=== PATIENT | female | born 1955 | race Caucasian/White ===

== ENCOUNTER → 2019-04-07 07:21 | Outpatient (CLI) | payer OTHER, SELFPAY ==
--- NOTE | 2019-04-07 | DI.US.S_ITS ---
PROCEDURE: US ABDOMEN COMPLETE INDICATIONS: FUNCTIONAL DYSPEPSIA TECHNIQUE: Real-time scanning was performed of the abdominal and retroperitoneal organs, with image documentation. COMPARISON: [facility], US, RENAL COMPLETE, 04/17/2017, 11:06. FINDINGS: Liver: Liver is diffusely increased in echogenicity. No focal hepatic abnormalities identified. Normal hepatic size. Gallbladder: No gallstones identified. Normal gallbladder wall. No pericholecystic fluid. Negative sonographic Garcia sign. Biliary ducts: Intrahepatic bile ducts are non-dilated. Extrahepatic bile duct caliber measures 5.1 mm. Normal is 6-7 mm or less in diameter, or 10 mm or less post-cholecystectomy. Pancreas: Visualized portions of the pancreas are sonographically normal. Spleen: Spleen is normal in size and homogeneous in echotexture. Kidneys: Kidneys are normal in size and echotexture. Right kidney measures 10.6 cm long; left kidney measures 1.3 cm long. No hydronephrosis or nephrolithiasis. No solid masses. Increase in size of simple left renal mid pole parapelvic cyst measuring up to 4.4 cm. Aorta: Visualized aorta is normal in caliber at less than 3 cm. Iliacs: Proximal common iliac arteries are normal in caliber at less than 2.5 cm. IVC: Intrahepatic inferior vena cava is patent. Miscellaneous: No free abdominal fluid. IMPRESSION: 1. Mildly increased hepatic echogenicity noted possibly related to hepatic steatosis but other sources of hepatocellular disease cannot be excluded. Recommend clinical correlation. 2. Increasing size of left renal peripelvic cyst. 3. No source for epigastric pain identified. Dictated by: Brett LUCERO Interpreted: Mu Chester MD on 04/07/2019 at 9:21 Approved by: Mu Chester M.D. on 04/07/2019 at 12:02
== END ==
PROVIDERS: Family Provider Family Medicine; PCP Family Medicine; Visit Provider Internal Medicine Gastroenterology
DX: K30 Functional dyspepsia (principal); N28.1 Cyst of kidney, acquired
CPT/HCPCS: 76700

== ENCOUNTER 2019-04-09 13:47 | Day surgery (SDC) | payer OTHER, SELFPAY ==
--- NOTE | 2019-04-09 | PATH_ITS ---
[facility] Accession Number: [id number] . 01 Material submitted: . PART A: gastrointestinal site - ESOPHAGEAL BIOPSY 38 PART B: gastrointestinal site - GASTRIC POLYP X2 PART C: esophagus - GASTRIC BIOPSIES . 01 Clinical history: . A: H.PYLORI . 02 Diagnosis: A. Esophagus at 38 cm, Biopsy: Squamocolumnar junctional mucosa with specialized intestinal metaplasia, consistent with Kaplan's esophagus. Negative for dysplasia or malignancy. . B. Gastric Polyps, Biopsies: Fundic gland polyp x2. No evidence of Helicobacter organisms on H/E stain. Negative for intestinal metaplasia, dysplasia or malignancy. . C. Stomach, Biopsies: Gastric antral and body mucosa with minimal chronic gastritis. Negative for Helicobacter organisms by immunohistochemistry. Negative for intestinal metaplasia, dysplasia or malignancy. [facility]/04/15/2019 . 02 Comment: Parts A and C) These specimens were received in containers identifying the gastric biopsies as esophageal, and vice versa. The microscopic and gross descriptions and accompanying diagnoses correspond to the anatomic origin of the specimen as determined microscopically. . 02 Electronically signed: . Vamsi Lott MD, PhD, Pathologist NPI- [id number] . 01 Gross description: . Part A: ESOPHAGEAL BIOPSY 38: Received in formalin are 3 fragment(s) of dolan, soft tissue measuring 0.4 x 0.3 x 0.2 cm to 0.1 x 0.1 x 0.1 cm submitted entirely in 1 cassette(s) Part B: GASTRIC POLYP X2: Received in formalin are 2 fragment(s) of dolan, soft tissue measuring 0.3 x 0.2 x 0.1 cm to 0.2 x 0.1 x 0.1 cm submitted entirely in 1 cassette(s) Part C: GASTRIC BIOPSIES: Received in formalin are 3 fragment(s) of dolan, soft tissue measuring 0.3 x 0.2 x 0.2 cm to 0.2 x 0.2 x 0.2 cm submitted entirely in 1 cassette(s) /CKI /CKI . 02 Microscopic: . Part C) An immunohistochemical stain is performed to evaluate for Helicobacter organisms and is negative. A control stain shows appropriate reactivity. . * This test was developed and its performance characteristics [facility]. It has not been cleared or approved by the U.S. Food and Drug Administration. The FDA has determined that such clearance or approval is not necessary. This test is used for clinical purposes. It should not be regarded as investigational or for research. . 02 Pathologist provided ICD-10: K29.70, K22.70, K31.7 . 02 CPT . 699397, 183397, 243366, I35171 Performed at: 01 [facility] [address] [facility], [place], [place] [id number] MD Song Rodrigez MD Phone: [phone] Performed at: 02 [facility] [address] [place], [place] [id number] MD Erica Blanco MD Phone: [phone]
[2019-04-09 14:22] VITALS: BP 152/80; PULSE 75; RESP 16; TEMP 36.4; O2SAT 97; BMI 29.2
[2019-04-09] MEDS: SODIUM CHLORIDE 0.9% 1,000 ML 70 ML IV (14:22)
--- NOTE | 2019-04-09 15:06 | PM.HP.1 ---
History of Present Illness Date Patient Seen: 04/09/19 Time Patient Seen: 15:00 Chief complaint: [id number] EGD W/POSS BX Narrative: Patient is a pleasant 64-year-old female who presented for EGD. She was last seen in the office on April [address] Hummel she denies any changes to her symptoms at that time. She continues to have epigastric abdominal pain, symptoms of acid reflux and dyspepsia. She denies any changes to her medications, medical history, surgical history, or family history since that time. Patient History Medical History Hypertension (Acute) Social History household members: spouse Family & Social History Social History: household members spouse Meds Home Medications Medication Instructions Recorded Confirmed Type calcium carbonate-vitamin D3 1 tab PO DAILY 04/09/19 04/09/19 History [Caltrate 600 + D] carvedilol 25 mg PO BID 04/09/19 04/09/19 History felodipine 10 mg PO DAILY 04/09/19 04/09/19 History fluticasone furoate 50 mcg INHALATION PRN PRN 04/09/19 04/09/19 History levothyroxine [Synthroid] 137 mcg PO DAILY 04/09/19 04/09/19 History losartan 100 mg PO DAILY 04/09/19 04/09/19 History meloxicam 7.5 mg PO BID 04/09/19 04/09/19 History qrekfbbs-fub-TT-lycopen-lutein 1 tab PO DAILY 04/09/19 04/09/19 History [Centrum Silver] omega 8-npv-isv-fish oil [Fish Oil] 1 cap PO BID 04/09/19 04/09/19 History omeprazole 20 mg PO BID 04/09/19 04/09/19 History ranitidine HCl 150 mg PO BID 04/09/19 04/09/19 History Allergies Allergy/AdvReac Type Severity Reaction Status Date / Time dexamethasone Allergy Severe Rash Verified 04/09/19 14:13 Sulfa (Sulfonamide AdvReac Severe Irritable Verified 04/09/19 14:13 Antibiotics) lisinopril AdvReac Cough Verified 04/09/19 14:14 Review of Systems Review of Systems All systems reviewed & are unremarkable except as noted in HPI and below Exam Vital Signs (past 8 hours): - 04/09/19 14:22 Temperature 97.6 F Pulse Rate 75 Respiratory Rate 16 Blood Pressure 152/80 H Pulse Oximetry 97 Oxygen Delivery Method Room Air Const General: cooperative, healthy appearing, comfortable, well developed and well groomed Nutritional Appearance: average body habitus Orientation: oriented x3 Resp Effort & Inspection: normal respiratory effort and able to speak in complete sentences Auscultation: clear to auscultation bilaterally Cardio Rate: regular rate Rhythm: regular rhythm Heart Sounds: S1 normal and S2 normal GI Palpation: soft and no hepatosplenomegaly Auscultation: normal bowel sounds Assessment & Plan Assessment & Plan narrative: 1. Gastroesophageal reflux 2. Epigastric pain 3. Dyspepsia Proceed with EGD Regarding the procedure(s), the risks and potential complications, benefits, and alternatives (including not doing the procedure) were discussed with the patient. The risks include but are not limited to bleeding, splenic injury, infection, perforation which may require surgical intervention, missed lesions, and adverse reactions to sedative medicines. After a question and answer period, the patient agreed to proceed with the procedure(s) and gives informed consent.
--- NOTE | 2019-04-09 15:09 | P.HP_ITS ---
History of Present Illness Date Patient Seen: 04/09/19 Time Patient Seen: 15:00 Chief complaint: [id number] EGD W/POSS BX Narrative: Patient is a pleasant 64-year-old female who presented for EGD. She was last seen in the office on April [address] Hummel she denies any changes to her symptoms at that time. She continues to have epigastric abdominal pain, symptoms of acid reflux and dyspepsia. She denies any changes to her medications, medical history, surgical history, or family history since that time. Patient History Medical History Hypertension (Acute) Social History household members: spouse Family & Social History Social History: household members spouse Meds Home Medications Medication Instructions Recorded Confirmed Type calcium carbonate-vitamin D3 1 tab PO DAILY 04/09/19 04/09/19 History [Caltrate 600 + D] carvedilol 25 mg PO BID 04/09/19 04/09/19 History felodipine 10 mg PO DAILY 04/09/19 04/09/19 History fluticasone furoate 50 mcg INHALATION PRN PRN 04/09/19 04/09/19 History levothyroxine [Synthroid] 137 mcg PO DAILY 04/09/19 04/09/19 History losartan 100 mg PO DAILY 04/09/19 04/09/19 History meloxicam 7.5 mg PO BID 04/09/19 04/09/19 History darggjxj-igl-BO-lycopen-lutein 1 tab PO DAILY 04/09/19 04/09/19 History [Centrum Silver] omega 5-vdi-qnn-fish oil [Fish Oil] 1 cap PO BID 04/09/19 04/09/19 History omeprazole 20 mg PO BID 04/09/19 04/09/19 History ranitidine HCl 150 mg PO BID 04/09/19 04/09/19 History Allergies Allergy/AdvReac Type Severity Reaction Status Date / Time dexamethasone Allergy Severe Rash Verified 04/09/19 14:13 Sulfa (Sulfonamide AdvReac Severe Irritable Verified 04/09/19 14:13 Antibiotics) lisinopril AdvReac Cough Verified 04/09/19 14:14 Review of Systems Review of Systems All systems reviewed & are unremarkable except as noted in HPI and below Exam Vital Signs (past 8 hours): - 04/09/19 14:22 Temperature 97.6 F Pulse Rate 75 Respiratory Rate 16 Blood Pressure 152/80 H Pulse Oximetry 97 Oxygen Delivery Method Room Air Const General: cooperative, healthy appearing, comfortable, well developed and well groomed Nutritional Appearance: average body habitus Orientation: oriented x3 Resp Effort & Inspection: normal respiratory effort and able to speak in complete sentences Auscultation: clear to auscultation bilaterally Cardio Rate: regular rate Rhythm: regular rhythm Heart Sounds: S1 normal and S2 normal GI Palpation: soft and no hepatosplenomegaly Auscultation: normal bowel sounds Assessment & Plan Assessment & Plan narrative: 1. Gastroesophageal reflux 2. Epigastric pain 3. Dyspepsia Proceed with EGD Regarding the procedure(s), the risks and potential complications, benefits, and alternatives (including not doing the procedure) were discussed with the patient. The risks include but are not limited to bleeding, splenic injury, infection, perforation which may require surgical intervention, missed lesions, and adverse reactions to sedative medicines. After a question and answer period, the patient agreed to proceed with the procedure(s) and gives informed consent.
[2019-04-09] MEDS: fentaNYL 250 MCG/5 ML INJ IV (15:25)
[2019-04-09] MEDS: MIDAZOLAM 5 MG/5 ML VIAL IV (15:26)
--- NOTE | 2019-04-09 15:32 | PM.OP.ENDO ---
Operative Date/Time/Diagnoses Date of procedure: 04/09/19 Time of procedure: 15:19 Procedure Notes Procedure in detail: Surgeon: Huma Moore DO Procedure: Esophagogastroduodenoscopy with biopsy Preoperative diagnosis: 1. Gastroesophageal reflux, 2. Dyspepsia, 3. Epigastric abdominal pain Postoperative diagnosis: 1. Reflux at 38 cm biopsied to rule out Kaplan's, 2. Small hiatal hernia, 3. Mild gastritis in the antrum -biopsy to rule out H pylori, 4. Gastric polyps -biopsied. 5. Normal-appearing duodenum Medications: Conscious sedation using 4 mg IV of Midazolam and 100 mcg IV of Fentanyl Preanesthesia Assessment An H and P was performed/updated and the Px?s ASA class is 2. The procedure was discussed in detail with the patient. The potential risks and complications including infection, bleeding, missed lesions, perforation, need for surgery in case of perforation, prolonged hospital stay, and were explained. A brief question and answer period was allotted and once all questions were answered, informed consent was obtained. The patient was brought back to the procedure room and placed on standard monitoring. The patient?s vital signs were monitored continuously throughout the entire procedure. Prior to starting, a timeout was performed to confirm the patient?s identity, allergies, medications, and procedure. Procedure in detail The patient was placed in left lateral decubitus position and a bite block was inserted. The tip of the upper endoscope was placed into the mouth and advanced without difficulty under direct visualization into the esophagus. Esophagus: Changes of esophageal reflux at 38 cm biopsied to rule out Kaplan's esophagus, otherwise unremarkable esophageal evaluation Stomach: Mild gastritis in the antrum characterized by patchy erythema -biopsy to rule out H pylori. Multiple gastric polyps - biopsied. Small hiatal hernia noted on retroflexion Duodenum: Normal-appearing duodenum -no gross lesions were identified in the duodenal bulb, 1st portion, 2nd portion of the duodenum The patient tolerated the procedure well and will be brought back to the recovery area to be discharged once criteria are met. The total physician intraservice time was 20min. Complications There were no complications and estimated blood loss was minimal. Recommendations: Resume previous diet Continue outPx medications Follow up pathology results Office follow up if persistent symptoms Continue omeprazole An emergency contact number was given to the patient for any complications related to the procedure
[2019-04-09 15:39] VITALS: BP 133/80; PULSE 87; RESP 12; TEMP 36.6; O2SAT 92
[2019-04-09 15:44] VITALS: BP 127/76; PULSE 82; RESP 12; O2SAT 96
[2019-04-09 15:49] VITALS: BP 126/73; PULSE 79; RESP 13; O2SAT 98
[2019-04-09 15:59] VITALS: BP 123/67; PULSE 80; RESP 12; TEMP 36.6; O2SAT 97
[2019-04-09 16:30] VITALS: BP 130/79; PULSE 73; RESP 16; TEMP 36.2; O2SAT 94
== END 2019-04-09 16:30 | disposition home or self-care (01) ==
PROVIDERS: Family Provider Family Medicine; PCP Family Medicine; Visit Provider Student in an Organized Health Care Education/Training Program
PROC: 0DJ08ZZ Inspection of Upper Intestinal Tract, Via Natural or Artificial Opening Endoscopic (ICD-10-PCS; CPT 43235; principal; 2019-04-09 15:00)
DX: K22.70 Barrett's esophagus without dysplasia (principal); K21.9 Gastro-esophageal reflux disease without esophagitis; R10.13 Epigastric pain; K44.9 Diaphragmatic hernia without obstruction or gangrene; K29.70 Gastritis, unspecified, without bleeding; I10 Essential (primary) hypertension; K31.7 Polyp of stomach and duodenum
CPT/HCPCS: 43239; J2250; J3010

== ENCOUNTER → 2019-05-30 14:20 | Outpatient (CLI) | payer OTHER, SELFPAY ==
--- NOTE | 2019-05-30 | DI.ECHO.S_ITS ---
[facility] +---------+ : : [id number] : : : : [id number] : : : : Phone: [phone] Echocardiogram Report + + :Name: CHANI LLOYD Study Date: 05/30/2019 Height: 62 in : :[facility] Exam Location: [facility] Weight: 162 lb : : Gender: Female BSA: 1.7 m2 : :: 1955 Age: 64 yrs BP: 146/80 mmHg: :Reason For Study: LBBB : : Performed By: Carlitos Holguin : :Referring: STEPHANE MARSHALL : + + Interpretation Summary 1) Normal left ventricular size, thickness, wall motion, and systolic function (EF 55-60%). 2) Normal right ventricular size and function. 3) No significant valvular abnormalities. 4) No prior Echo avaliable for comparison. Procedure: A two-dimensional transthoracic echocardiogram with color flow and Doppler was performed. The study quality was technically adequate. There is no prior echocardiogram noted for this patient. The patient was in normal sinus rhythm during the exam. Left Ventricle: The left ventricle is normal in size. There is normal left ventricular wall thickness. The ejection fraction is estimated to be 55-60%. There are no focal wall motion abnormalities. Right Ventricle: The right ventricle is normal in size and function. Atria: Both atria are normal in size. The interatrial septum is intact with no evidence for an atrial septal defect. Mitral Valve: The mitral valve is normal in structure and function. There is trace mitral regurgitation. Aortic Valve: The aortic valve opens well. There is no aortic valve stenosis. There is trace aortic regurgitation. Tricuspid Valve: The tricuspid valve is normal in structure and function. There is a trace or physiologic amount of tricuspid regurgitation. Pulmonary artery pressures cannot be estimated because of the lack of a measurable TR jet velocity. Pulmonic Valve: The pulmonic valve is normal in structure and function. There is trace pulmonic regurgitation. Great Vessels: The aortic root is normal size. The dimensions of the ascending aorta are normal. The pulmonary artery is normal size. The IVC is of normal diameter and collapses greater than 50% with a sniff. This suggests a low right atrial pressure of 3 mm Hg. Pericardium/ Pleura There is no pericardial effusion. There is no pleural effusion. MMode/2D Measurements & Calculations LVIDd: 4.6 cm LVOT diam: 2.2 cm LVIDs: 3.0 cm Ao root diam: 3.0 cm FS: 34.3 % Aortic Jxn: 2.3 cm EPSS: 0.67 cm asc Aorta Diam: 3.3 cm IVSd: 0.96 cm Ao Arch Diam (Prox Trans): 2.2 cm LVPWd: 0.94 cm LV greene. diameter/BSA (cm/m^2): 2.6 LV sys. diameter/BSA (cm/m^2): 1.7 LA dimension: 4.0 cm RA long axis: 5.0 cm LA A2 area: 18.3 cm2 RA area: 13.7 cm2 LA A4 area: 21.3 cm2 RA vol: 31.8 ml LA length (vol): 5.6 cm RA : 18.2 ml/m2 LA vol: 59.3 ml IVC diam: 1.9 cm LA vol index: 33.9 ml/m2 Doppler Measurements & Calculations Ao V2 max: 120.7 cm/sec LVOT Max Saud: 85.2 cm/sec Ao V2 mean: 92.8 cm/sec LV V1 max P.9 mmHg Ao max P.8 mmHg LV V1 VTI: 19.8 cm Ao mean P.7 mmHg LOTTIE(I,D): 2.9 cm2 Ao V2 VTI: 26.8 cm LOTTIE(V,D): 2.8 cm2 sev ratio: 0.74 LOTTIE indexed to BSA (cm^2/m^2): 1.7 MV E max saud: 66.8 cm/sec PA V2 max: 59.6 cm/sec MV A max saud: 90.9 cm/sec PA V2 mean: 44.8 cm/sec MV E/A: 0.74 PA mean P.86 mmHg Med Peak E' Saud: 4.1 cm/sec PA pr(Accel): 39.1 mmHg E/E' med: 16.2 PA Accel Time: 0.10 sec Lat Peak E' Saud: 5.2 cm/sec E/E' lat: 13.0 E/e' average: 14.6 MV dec time: 0.18 sec SV(LVOT): 78.6 ml Reading Physician:04:27 PM
== END ==
PROVIDERS: Family Provider Family Medicine; PCP Family Medicine; Visit Provider Internal Medicine Cardiovascular Disease
DX: I44.7 Left bundle-branch block, unspecified (principal)
CPT/HCPCS: 93306

== ENCOUNTER → 2021-02-02 14:24 | Outpatient (CLI) | payer MEDICARE, OTHER, SELFPAY ==
--- NOTE | 2021-02-02 14:29 | DI.MG.S_ITS ---
BILATERAL DIGITAL SCREENING MAMMOGRAM 3D/2D WITH CAD: 02/02/2021 CLINICAL: Routine screening. Comparison is made to exams dated: 08/21/2016 mammogram, 10/15/2017 mammogram, and 11/28/2018 mammogram - [facility]. The tissue of both breasts is heterogeneously dense. This may lower the sensitivity of mammography. Current study was also evaluated with a Computer Aided Detection (CAD) system. No significant masses, calcifications, or other findings are seen in either breast. There has been no significant interval change. IMPRESSION: NEGATIVE There is no mammographic evidence of malignancy. A 1 year screening mammogram is recommended. This exam was interpreted at Station ID: [id number]. NOTE: For mammograms, a report in lay terms will be sent to the patient. Approximately 15% of breast malignancies will not be visualized mammographically. In the management of a palpable breast mass, a negative mammogram must not discourage biopsy of a clinically suspicious lesion. Electronically Signed By: De bronson/kulwinder:02/02/2021 16:55:14 letter sent: Normal Exam ACR BI-RADS Category 1: Negative [id number]
== END ==
PROVIDERS: Family Provider Family Medicine; PCP Internal Medicine; Referring Provider Family Medicine; Visit Provider Family Medicine
DX: Z12.31 Encounter for screening mammogram for malignant neoplasm of breast (principal); Z78.0 Asymptomatic menopausal state; M85.852 Other specified disorders of bone density and structure, left thigh
CPT/HCPCS: 77063; 77067; 77080

== ENCOUNTER 2021-05-12 19:10 | Emergency (ER) | payer MEDICARE, OTHER, SELFPAY ==
[2021-05-12 19:19] VITALS: BP 166/83; PULSE 81; RESP 16; TEMP 36.7; O2SAT 96; BMI 29.0
--- NOTE | 2021-05-12 19:35 | ED.EXTPRO ---
HPI - Extremity Problem General Chief complaint: Extremity Problem,Nontraumatic Stated complaint: Needs US on Right Leg, Seen At [facility] Time Seen by Provider: 05/12/21 19:23 Source: patient and family Mode of arrival: Ambulatory Limitations: no limitations History of Present Illness HPI Narrative: Patient is a 66-year-old female who is here for evaluation of discomfort in the back of her right leg. She states she has had the discomfort there for the past several days if not a little bit longer. Does get worse when she touches the area. Does get worse when she bends her foot up. She is concerned about a blood clot. She is not having chest pain. No shortness of breath. Has never had blood clots in the past. No skin changes. No trauma. No recent travel Related Data Home Medications Medication Instructions Recorded Confirmed calcium carbonate 600 mg(1,500 1 tab PO DAILY 04/09/19 04/09/19 mg)-vitamin D3 800 unit chewable tablet (Caltrate 600 plus D) carvedilol 25 mg tablet 25 mg PO BID 04/09/19 04/09/19 felodipine 10 mg tablet,extended 10 mg PO DAILY 04/09/19 04/09/19 release 24 hr fluticasone furoate 50 50 mcg INHALATION PRN PRN 04/09/19 04/09/19 mcg/actuation blister powder for inhalation levothyroxine 137 mcg tablet 137 mcg PO DAILY 04/09/19 04/09/19 (Synthroid) losartan 100 mg tablet 100 mg PO DAILY 04/09/19 04/09/19 meloxicam 7.5 mg tablet 7.5 mg PO BID 04/09/19 04/09/19 vrejhwcv-cpw-humqi acid 0.4 1 tab PO DAILY 04/09/19 04/09/19 mg-lycopene 300 mcg-lutein 250 mcg tablet (Centrum Silver) omega 6-bqe-ykz-fish oil 1,000 mg 1 cap PO BID 04/09/19 04/09/19 (120 mg-180 mg) capsule (Fish Oil) omeprazole 20 mg capsule,delayed 20 mg PO BID 04/09/19 04/09/19 release ranitidine HCl 150 mg capsule 150 mg PO BID 04/09/19 04/09/19 Allergies Allergy/AdvReac Type Severity Reaction Status Date / Time dexamethasone Allergy Severe Rash Verified 05/12/21 19:19 Sulfa (Sulfonamide AdvReac Severe Irritable Verified 05/12/21 19:19 Antibiotics) lisinopril AdvReac Cough Verified 05/12/21 19:19 Review of Systems Constitutional Constitutional: Reports system reviewed and no additional complaints, except as documented Cardiovascular Cardiovascular: Reports as per HPI Respiratory Respiratory: Reports as per HPI Gastrointestinal Gastrointestinal: Reports system reviewed and no additional complaints, except as documented Musculoskeletal Musculoskeletal: Reports as per HPI Integumentary/Breasts Skin/Breast: Reports system reviewed and no additional complaints, except as documented Neurologic Neurologic: Reports system reviewed and no additional complaints, except as documented Hematologic/Lymphatic On Anticoagulants: No Patient History Medical History Hypertension Social History household members: spouse Smoking Status: Never smoker Smoking Status: Never smoker alcohol intake frequency: holidays/special occasions only Substance Use Type: does not use Exam Initial Vital Signs Initial Vital Signs: Vital Signs Temperature 98.1 F 05/12/21 19:19 Pulse Rate 81 05/12/21 19:19 Respiratory Rate 16 05/12/21 19:19 Blood Pressure 166/83 H 05/12/21 19:19 Pulse Oximetry 96 05/12/21 19:19 Const General: cooperative and healthy appearing HENVA Head: normal to inspection and normocephalic Eyes General: appearance normal, both eyes and all related structures Neck Neck: normal visual inspection Resp Effort & Inspection: normal respiratory effort Cardio Rate: regular rate Pulses: dorsalis pedis present on the right GI Inspection: normal to inspection Skin General: no rashes or lesions noted Neuro General: patient alert, patient awake and moves all extremities Extrem General: normal to inspection, capillary refill normal, no joint enlargement and no pedal edema Other: She does have tenderness to palpation along the lateral aspect of the right calf muscle. This is reproducible with dorsiflexion of the right foot. No discomfort with plantar flexion. She does have some discomfort a palpation of the hamstring tendons specifically the lateral hamstring. Psych Appearance: grossly normal and well kempt Scores Wells' Criteria for DVT Active Cancer (Treatment within 6 months): No Bedridden recently >3 days or major surgery within 4 weeks: No Calf Swelling >3cm compared to other leg: No Collateral (nonvericose) superficial veins present: No Entire leg swollen: No Localized tenderness along the deep vein system: No Pitting edema, confined to symtomatic leg: No Paralysis, paresis, or recent plaster immobilization of ext: No Previously documented DVT: No Alternative dx to DVT as likely or more likely: Yes Wells' criteria for DVT: -2 Course Vital Signs Vital signs: Vital Signs - 8 hr 05/12/21 19:19 Temperature 98.1 F Pulse Rate 81 Respiratory Rate 16 Blood Pressure 166/83 H Pulse Oximetry 96 MDM - Extremity (Nontraumatic) MDM Narrative Medical decision making narrative: Patient is low risk per Wells criteria for DVT. She has no skin changes over the area make me concerned for cellulitis. Have low suspicion for fracture. Low suspicion for compartment syndrome. She is specifically tender over the lateral aspect of the right calf muscle and this is reproducible dorsiflexion of the foot. I suspect that the etiology of this is muscular in origin. I feel that we can hold on radiologic studies. I did discuss this with the patient we did discuss thinks she can try home to help the symptoms. She was given strict return precautions and follow-up instructions. She expressed understanding and agreement. Discharge Plan Departure Patient Disposition: Home Clinical Impression: Strain of right calf muscle Instructions: Calf Muscle Strain Activity Restrictions/Additional Instructions: I recommend that you try to keep your leg is elevated as possible. You can also use ice over the area. Also recommend that you start on a anti-inflammatory like we discussed. Return to the emergency department for any new or worsening symptoms Prescriptions: No Action levothyroxine [Synthroid] 137 mcg Tablet 137 mcg PO DAILY RF: 0 carvedilol 25 mg Tablet 25 mg PO BID RF: 0 meloxicam 7.5 mg Tablet 7.5 mg PO BID RF: 0 omeprazole 20 mg Capsule,Delayed Release(Dr/Ec) 20 mg PO BID RF: 0 felodipine 10 mg Tablet Extended Release 24 Hr 10 mg PO DAILY RF: 0 ranitidine HCl 150 mg Capsule 150 mg PO BID RF: 0 losartan 100 mg Tablet 100 mg PO DAILY RF: 0 Centrum Silver 0.4-300-250 mg-mcg-mcg Tablet 1 tab PO DAILY RF: 0 omega 0-xym-ptk-fish oil [Fish Oil] 1,000 mg (120 mg-180 mg) Capsule 1 cap PO BID RF: 0 Caltrate 600 plus D 600 mg (1,500 mg)-800 unit Tablet,Chewable 1 tab PO DAILY RF: 0 fluticasone furoate 50 mcg/actuation Blister With Device 50 mcg inhalation PRN PRN (Reason: Allergic Symptoms) RF: 0 Referrals: Jose Manuel Winters MD [Primary Care Provider] -
== END 2021-05-12 19:56 | disposition home or self-care (01) ==
PROVIDERS: Emergency Provider Emergency Medicine; Family Provider Family Medicine; PCP Internal Medicine
DX: S86.911A Strain of unspecified muscle(s) and tendon(s) at lower leg level, right leg, initial encounter (principal)
CPT/HCPCS: 99281

== ENCOUNTER 2021-09-15 19:38 | Emergency (ER) | payer MEDICARE, OTHER, SELFPAY ==
--- NOTE | 2021-09-15 19:46 | DI.RAD.S_ITS ---
PROCEDURE: XR CHEST 1V INDICATIONS: chest pain TECHNIQUE: One view of the chest was acquired. COMPARISON: None. FINDINGS: Surgical changes and devices: None. Lungs and pleura: Lungs are clear. No pleural effusions or pneumothorax. Mediastinum: Mediastinal contours appear normal. Heart size is normal. Bones and chest wall: No suspicious bony lesions. Overlying soft tissues appear unremarkable. IMPRESSION: No acute cardiopulmonary disease. Dictated by: Kristi Gentile M.D. on 09/15/2021 at 21:43 Approved by: Kristi Gentile M.D. on 09/15/2021 at 21:43
[2021-09-15 19:47] VITALS: BP 178/115; PULSE 126; RESP 16; TEMP 36.6; O2SAT 98; BMI 29.2
[2021-09-15 19:59] VITALS: PULSE 123; RESP 12; O2SAT 97
[2021-09-15 20:05] LABS: Add Manual Diff / Slide Review NO; Basophils Absolute Auto 100 /uL (0-100); Basophils Percent Auto 0.9 % (0-2); Eosinophils Absolute Auto 300 /uL (0-450); Eosinophils Percent Auto 3.5 % (2-4); Hematocrit 36.9 % (36-46); Hemoglobin 12.6 g/dL (12.0-16.0); Lymphocytes Absolute Auto 1200 /uL (1100-4500); Lymphocytes Percent Auto 14.8 % (25-40); Mean Corpuscular HGB Conc 34.2 % (30-36); Mean Corpuscular Hemoglobin 29.7 PG (26-34); Mean Corpuscular Volume 86.9 fL (80-100); Monocytes Absolute Auto 600 /uL (0-900); Monocytes Percent Auto 7.9 % (3-14); Neutrophils Absolute Auto 6000 /uL (1500-7000); Neutrophils Percent Auto 72.9 % (50-75); Platelet Count 319 X10^3/uL (150-400); Red Blood Cell Count 4.25 X10^6/uL (4.0-5.2); Red Cell Distribution Width 14.2 % (11.6-14.8); White Blood Cell Count 8.2 X10^3/uL (4.5-11.0)
[2021-09-15 20:17] VITALS: BP 176/98; PULSE 122; RESP 19; O2SAT 96
[2021-09-15 20:30] VITALS: BP 153/81; PULSE 73; RESP 12; O2SAT 93
[2021-09-15 20:43] LABS: Alanine Aminotransferase 24 IU/L (<35); Albumin 4.2 g/dL (3.5-5.0); Albumin Globulin Ratio 1.4 (1.0-2.8); Alkaline Phosphatase 83 U/L (38-126); Aspartate Aminotransferase 28 IU/L (14-36); BUN Creatinine Ratio 28.4 (6-22); Bilirubin Total 0.3 mg/dL (0.2-1.3); Blood Urea Nitrogen 33 mg/dL (7-17); Calcium 8.7 mg/dL (8.4-10.2); Carbon Dioxide 26 mmol/L (22-32); Chloride 109 mmol/L (98-107); Creatine Kinase 120 U/L (30-135); Estimated Glomerular Filt Rate 46.7 mL/min (>60); Glucose 110 mg/dL (80-110); Lipase 141 U/L (23-300); Potassium 4.4 mmol/L (3.4-5.1); Sodium 142 mmol/L (137-145); Total Protein 7.2 g/dL (6.3-8.2)
[2021-09-15 20:55] LABS: Troponin I < 0.012 ng/mL (0.01-0.034)
[2021-09-15 20:58] LABS: CKMB % Relative Index 1.6 % (1.5-5.0); Creatine Kinase MB 1.93 ng/mL (<2.37); HEMOLYSIS 16 (0-50)
[2021-09-15 21:00] VITALS: BP 150/75; PULSE 72; RESP 12; O2SAT 94
--- NOTE | 2021-09-15 21:17 | PC.NURSE ---
Pt appeared to convert from atrial flutter on to NSR, HR 75 on the monitor, Dr. Huff notified and EKG obtained. Pt reports flutters in her chest are gone and denies chest pain.
[2021-09-15 21:27] VITALS: BP 162/77; PULSE 71; RESP 20; O2SAT 96
--- NOTE | 2021-09-15 21:39 | ED_ITS ---
HPI - Chest Pain General Chief Complaint: Chest Pain Stated Complaint: heart flutters, HTN Time Seen by Provider: 09/15/21 20:42 Source: patient Mode of arrival: Ambulatory Limitations: no limitations History of Present Illness HPI narrative: Patient is a 66-year-old female. Has had history of palpitations and heart flutters in the past. Has been seen by Cardiology. Is on carvedilol and felodipine. Has had a Holter monitor in the past but she states that fall she word she did not have any symptoms. She has had multiple EKGs which have not captured any abnormalities. She states that recently she has been getting palpitations and feeling like her heart is fluttering almost on a daily basis. They last for various amounts of times but the to voice seem to be self-limited. Today she stated that she had the same symptoms again. This time they became more intense and lasted longer than normal. No chest pain. No shortness of breath. No lightheadedness. Has not tried anything for the symptoms prior to arrival. She has taken all of her medications as directed. She also took her blood pressure at home while the event was going on and it was elevated. Related Data Home Medications Medication Instructions Recorded Confirmed calcium carbonate 600 mg(1,500 1 tab PO DAILY 04/09/19 04/09/19 mg)-vitamin D3 800 unit chewable tablet (Caltrate 600 plus D) carvedilol 25 mg tablet 25 mg PO BID 04/09/19 04/09/19 felodipine 10 mg tablet,extended 10 mg PO DAILY 04/09/19 04/09/19 release 24 hr fluticasone furoate 50 50 mcg INHALATION PRN PRN 04/09/19 04/09/19 mcg/actuation blister powder for inhalation levothyroxine 137 mcg tablet 137 mcg PO DAILY 04/09/19 04/09/19 (Synthroid) losartan 100 mg tablet 100 mg PO DAILY 04/09/19 04/09/19 meloxicam 7.5 mg tablet 7.5 mg PO BID 04/09/19 04/09/19 gcbajuun-nvo-gihfs acid 0.4 1 tab PO DAILY 04/09/19 04/09/19 mg-lycopene 300 mcg-lutein 250 mcg tablet (Centrum Silver) omega 4-vtt-fxw-fish oil 1,000 mg 1 cap PO BID 04/09/19 04/09/19 (120 mg-180 mg) capsule (Fish Oil) omeprazole 20 mg capsule,delayed 20 mg PO BID 04/09/19 04/09/19 release ranitidine HCl 150 mg capsule 150 mg PO BID 04/09/19 04/09/19 Allergies Allergy/AdvReac Type Severity Reaction Status Date / Time dexamethasone Allergy Severe Rash Verified 09/15/21 19:49 Sulfa (Sulfonamide AdvReac Severe Irritable Verified 09/15/21 19:49 Antibiotics) lisinopril AdvReac Cough Verified 09/15/21 19:49 Review of Systems Constitutional Constitutional: Denies headache(s) ENT Ears, Nose, Mouth, and Throat: Denies headache(s) Cardiovascular Cardiovascular: Reports as per HPI and Reports system reviewed and no additional complaints, except as documented Respiratory Respiratory: Reports system reviewed and no additional complaints, except as documented Gastrointestinal Gastrointestinal: Reports system reviewed and no additional complaints, except a s documented Musculoskeletal Musculoskeletal: Reports system reviewed and no additional complaints, except as documented Integumentary/Breasts Skin/Breast: Reports system reviewed and no additional complaints, except as documented Neurologic Neurologic: Denies headache(s) Hematologic/Lymphatic On Anticoagulants: No Patient History Medical History Hypertension Social History household members: spouse Smoking Status: Never smoker Smoking Status: Never smoker alcohol intake frequency: holidays/special occasions only Substance Use Type: does not use Exam Initial Vital Signs Initial Vital Signs: Vital Signs Temperature 98 F 09/15/21 19:47 Pulse Rate 126 H 09/15/21 19:47 Respiratory Rate 16 09/15/21 19:47 Blood Pressure 178/115 H 09/15/21 19:47 Pulse Oximetry 98 09/15/21 19:47 HENMT Head: normal to inspection and normocephalic Eyes General: appearance normal, both eyes and all related structures Resp Effort & Inspection: normal respiratory effort Auscultation: clear to auscultation bilaterally Cardio Rate: regular rate Rhythm: regular rhythm GI Inspection: normal to inspection Skin General: no rashes or lesions noted Neuro General: patient alert, patient awake and moves all extremities Extrem General: No edema Psych Appearance: grossly normal Course Orders Ordered: ED Orders 09/15/21 19:46 XR chest 1V Stat EKG-12 Lead Stat 09/15/21 19:59 Complete Blood Count AUTO DIFF Stat Comprehensive Metabolic Panel Stat Lipase Stat Troponin & CK Cardiac Panel Stat 09/15/21 21:16 EKG-12 Lead Stat Vital Signs Vital signs: Vital Signs - 8 hr 09/15/21 19:47 09/15/21 19:59 09/15/21 20:17 Temperature 98 F Pulse Rate 126 H 123 H 122 H Respiratory Rate 16 12 19 Blood Pressure 178/115 H 176/98 H Pulse Oximetry 98 97 96 09/15/21 20:30 09/15/21 21:00 09/15/21 21:27 Temperature Pulse Rate 73 72 71 Respiratory Rate 12 12 20 Blood Pressure 153/81 H 150/75 H 162/77 H Pulse Oximetry 93 94 96 MDM - Chest Pain Lab Data Attestation: I reviewed the patient's lab results. Result diagrams: 09/15/21 19:59 09/15/21 19:59 Labs: Lab Results 09/15/21 09/15/21 Range/Units 19:59 19:59 WBC 8.2 (4.5-11.0) X10^3/uL RBC 4.25 (4.0-5.2) X10^6/uL Hgb 12.6 (12.0-16.0) g/dL Hct 36.9 (36-46) % MCV 86.9 (80-100) fL MCH 29.7 (26-34) PG MCHC 34.2 (30-36) % RDW 14.2 (11.6-14.8) % Plt Count 319 (150-400) X10^3/uL Neut % (Auto) 72.9 (50-75) % Lymph % (Auto) 14.8 L (25-40) % Collier % (Auto) 7.9 (3-14) % Eos % (Auto) 3.5 (2-4) % Baso % (Auto) 0.9 (0-2) % Neut # (Auto) 6000 (1194-1034) /uL Lymph # (Auto) 1200 (7578-4319) /uL Collier # (Auto) 600 (0-900) /uL Eos # (Auto) 300 (0-450) /uL Baso # (Auto) 100 (0-100) /uL Sodium 142 (137-145) mmol/L Potassium 4.4 (3.4-5.1) mmol/L Chloride 109 H (98-107) mmol/L Carbon Dioxide 26 (22-32) mmol/L BUN 33 H (7-17) mg/dL Creatinine 1.16 H (0.52-1.04) mg/dL Estimated GFR 46.7 L (>60) mL/min BUN/Creatinine Ratio 28.4 H (6-22) Glucose 110 (80-110) mg/dL Calcium 8.7 (8.4-10.2) mg/dL Total Bilirubin 0.3 (0.2-1.3) mg/dL AST 28 (14-36) IU/L ALT 24 (<35) IU/L Alkaline Phosphatase 83 (38-126) U/L Total Creatine Kinase 120 (30-135) U/L CK-MB (CK-2) 1.93 (<2.37) ng/mL CK-MB (CK-2) Rel Index 1.6 (1.5-5.0) % Troponin I < 0.012 (0.01-0.034) ng/mL Total Protein 7.2 (6.3-8.2) g/dL Albumin 4.2 (3.5-5.0) g/dL Globulin 3.0 (1.7-4.1) g/dL Albumin/Globulin Ratio 1.4 (1.0-2.8) Lipase 141 (23-300) U/L Imaging Data Chest x-ray: Radiologist's Impression: [address] [address] XRay Report Signed Patient: Kajal Sumner MR#: [id number] : 1955 Acct:[id number] Age/Sex: 66 / F Date of Service: 09/15/21 Loc: ED Accession Number: [id number] ?? Procedure: XR chest 1V Ordering Provider: Alexander Huff D.O. PROCEDURE:? XR CHEST 1V ? INDICATIONS:? chest pain ? TECHNIQUE:? One view of the chest was acquired.? ? COMPARISON:? None. ? FINDINGS:? ? Surgical changes and devices:? None.? ? Lungs and pleura:? Lungs are clear.? No pleural effusions or pneumothorax.? ? Mediastinum:? Mediastinal contours appear normal.? Heart size is normal.? ? Bones and chest wall:? No suspicious bony lesions.? Overlying soft tissues appear unremarkable.? ? IMPRESSION:? No acute cardiopulmonary disease.? ? ? Dictated by: Kristi Gentile M.D. on 09/15/2021 at 21:43 ? ? Approved by: Kristi Gentile M.D. on 09/15/2021 at 21:43 ECG Data Attestation: I personally reviewed and interpreted this ECG as follows: Interpretation: Atrial flutter Ventricular rate 126 QRS 126 milliseconds QTC [address] T wave changes Repeat EKG Sinus rhythm Ventricular rate of 68 [place] interval 154 milliseconds QRS 138 milliseconds QTC 469 milliseconds Normal axis LVH Nonspecific ST T wave changes MDM Narrative Medical decision making narrative: Prior to my evaluation of the patient she stated that all of her symptoms completely resolved. The initial EKG I initially thought was sinus tachycardia however upon further evaluation it does appear to be atrial flutter. A repeat EKG after she states that all of her symptoms improved is obviously sinus rhythm. I did give her copy of her EKGs. She has been hypertensive. Low suspicion for ACS. I suspect that she has been having issues with atrial flutter/fibrillation given her presentation which she describes that has been going on. The symptoms have become more frequent. I did tell her that it may be time for her to have another Holter monitor since her symptoms are more frequent. She can get this from either her primary doctor or her it help desk analyst. Will discharge home. Will hold on changing any of her medications for now. Will hold on any anticoagulation. She was given return precautions and follow- up instructions. She expressed understanding and agreement. Discharge Plan Departure Patient Disposition: Home Clinical Impression: Atrial flutter, Hypertension Instructions: Essential Hypertension, DI for Arrhythmias Activity Restrictions/Additional Instructions: Continue to take all of your medications as directed. I do recommend that you contact your it help desk analyst for a follow-up to discuss further workup to include p otentially having another Holter monitor. This workup may also include a echocardiogram. Be sure to take your blood pressure at home like we discussed. Take the EKGs that your given today 2 your it help desk analyst for his review. Return to the emergency department for any new or worsening symptoms. Prescriptions: No Action levothyroxine [Synthroid] 137 mcg Tablet 137 mcg PO DAILY 0RF carvedilol 25 mg Tablet 25 mg PO BID 0RF meloxicam 7.5 mg Tablet 7.5 mg PO BID 0RF omeprazole 20 mg Capsule,Delayed Release(Dr/Ec) 20 mg PO BID 0RF felodipine 10 mg Tablet Extended Release 24 Hr 10 mg PO DAILY 0RF ranitidine HCl 150 mg Capsule 150 mg PO BID 0RF losartan 100 mg Tablet 100 mg PO DAILY 0RF Centrum Silver 0.4-300-250 mg-mcg-mcg Tablet 1 tab PO DAILY 0RF omega 4-rwn-uls-fish oil [Fish Oil] 1,000 mg (120 mg-180 mg) Capsule 1 cap PO BID 0RF Caltrate 600 plus D 600 mg (1,500 mg)-800 unit Tablet,Chewable 1 tab PO DAILY 0RF fluticasone furoate 50 mcg/actuation Blister With Device 50 mcg inhalation PRN PRN (Reason: Allergic Symptoms) 0RF Referrals: Jose Manuel Winters MD [Primary Care Provider] -
== END 2021-09-15 21:54 | disposition home or self-care (01) ==
PROVIDERS: Emergency Provider Emergency Medicine; Family Provider Family Medicine; PCP Internal Medicine
DX: I48.92 Unspecified atrial flutter (principal); I10 Essential (primary) hypertension
CPT/HCPCS: 36415; 71045; 80053; 82550; 82553; 83690; 84484; 85025; 93005; 93010; 99284

== ENCOUNTER → 2021-10-31 15:40 | Outpatient (CLI) | payer MEDICARE, OTHER, SELFPAY ==
--- NOTE | 2021-10-31 | DI.ECHO.S_ITS ---
[place] [facility]---------+ [facility] +---------+ : : [address] : : : : [id number] : : : : Phone: [phone] Echocardiogram Report + + :Name: CHANI LLOYD Study Date: 10/31/2021 Height: 62 in : :[facility] ReadingLocation: Weight: 159 lb : : Gender: Female BSA: 1.7 m2 : :: 1955 Age: 66 yrs BP: 156/82 mmHg: :Reason For Study: LEFT BUNDLE BRANCH BLOCK, ATRIAL FLUTTER : :Ordering Physician: MONICA, : :STEPHANE Performed By: Gina Ruiz : :Referring: STEPHANE MARSHALL : + + Interpretation Summary 1) Normal left ventricular size, thickness, and systolic function (EF 55-60%). 2) Normal right ventricular size and function. 3) No significant valvular abnormalities. 4) Compared to the Echo done 05/30/2019, no significant change. Procedure: A two-dimensional transthoracic echocardiogram with color flow and Doppler was performed. The study quality was technically adequate. Comparison is made with the echocardiogram of 05/30/2019. The patient had a bundle branch block rhythm during the exam. The heart rate ranged between 57- 65 bpm during the study. Left Ventricle: The left ventricle is normal in size and wall thickness. The ejection fraction is estimated to be 55-60%. There is a mild dyssynchronous contraction pattern, consistent with a conduction abnormality. Right Ventricle: The right ventricle is normal in size and function. Atria: The left atrial size is normal. Right atrial size is normal. There is no Doppler evidence for an interatrial shunt. Mitral Valve: The mitral valve is normal in structure and function. There is mild mitral regurgitation. Aortic Valve: The aortic valve opens well. There is no aortic valve stenosis. There is trace aortic regurgitation. Tricuspid Valve: The tricuspid valve is normal in structure and function. There is trace tricuspid regurgitation. Pulmonary artery pressures cannot be estimated because of the lack of a measurable TR jet velocity. Pulmonic Valve: The pulmonic valve is not well visualized. Great Vessels: The aortic root is normal size. The dimensions of the ascending aorta are normal. The IVC is of normal diameter and collapses greater than 50% with a sniff. This suggests a low right atrial pressure of 3 mm Hg. Pericardium/ Pleura There is no pericardial effusion. There is no pleural effusion. MMode/2D Measurements & Calculations LVIDd: 4.8 cm LVOT diam: 2.0 cm LVIDs: 3.6 cm Ao root diam: 2.9 cm FS: 25.4 % asc Aorta Diam: 2.8 cm IVSd: 0.92 cm Ao Arch Diam (Prox Trans): 2.2 cm LVPWd: 0.76 cm LV greene. diameter/BSA (cm/m^2): 2.8 LV sys. diameter/BSA (cm/m^2): 2.1 LA A2 area: 18.0 cm2 RA long axis: 4.3 cm LA A4 area: 16.1 cm2 RA area: 13.2 cm2 LA length (vol): 4.9 cm RA vol: 34.5 ml LA vol: 49.7 ml RA : 19.9 ml/m2 LA vol index: 28.7 ml/m2 IVC diam: 1.5 cm RVD1 (basal): 3.6 cm RVD2 (mid): 3.1 cm TAPSE: 2.1 cm Doppler Measurements & Calculations Ao V2 max: 117.3 cm/sec LVOT Max Saud: 92.3 cm/sec Ao V2 mean: 74.0 cm/sec LV V1 max P.4 mmHg Ao max P.5 mmHg LV V1 VTI: 22.3 cm Ao mean P.6 mmHg LOTTIE(I,D): 2.9 cm2 Ao V2 VTI: 23.4 cm LOTTIE(V,D): 2.4 cm2 sev ratio: 0.95 LOTTIE indexed to BSA (cm^2/m^2): 1.7 MV E max saud: 57.5 cm/sec TR max saud: 257.4 cm/sec MV A max saud: 91.1 cm/sec TR max P.5 mmHg MV E/A: 0.63 PA V2 max: 86.5 cm/sec Med Peak E' Saud: 4.5 cm/sec PA V2 mean: 57.9 cm/sec E/E' med: 12.7 PA mean P.5 mmHg Lat Peak E' Saud: 6.5 cm/sec PA pr(Accel): 39.6 mmHg E/E' lat: 8.8 E/e' average: 10.8 MV dec time: 0.22 sec SV(LVOT): 68.5 ml Reading Physician:10:18 AM
== END ==
PROVIDERS: Family Provider Family Medicine; PCP Internal Medicine; Referring Provider Internal Medicine Cardiovascular Disease; Visit Provider Internal Medicine Cardiovascular Disease
DX: I34.0 Nonrheumatic mitral (valve) insufficiency (principal); I48.92 Unspecified atrial flutter; I44.7 Left bundle-branch block, unspecified
CPT/HCPCS: 93306

== ENCOUNTER → 2022-02-09 16:37 | Outpatient (CLI) | payer MEDICARE, OTHER, SELFPAY ==
--- NOTE | 2022-02-09 | DI.MG.S_ITS ---
BILATERAL DIGITAL SCREENING MAMMOGRAM 3D/2D WITH CAD: 02/09/2022 CLINICAL: Routine screening. Comparison is made to exams dated: 02/02/2021 mammogram - [facility], 11/28/2018 mammogram, 10/15/2017 mammogram, and 08/21/2016 mammogram - [facility]. The tissue of both breasts is heterogeneously dense. This may lower the sensitivity of mammography. Current study was also evaluated with a Computer Aided Detection (CAD) system. No significant masses, calcifications, or other findings are seen in either breast. There has been no significant interval change. IMPRESSION: NEGATIVE There is no mammographic evidence of malignancy. A 1 year screening mammogram is recommended. This exam was interpreted at Station ID: [id number]. NOTE: For mammograms, a report in lay terms will be sent to the patient. Approximately 15% of breast malignancies will not be visualized mammographically. In the management of a palpable breast mass, a negative mammogram must not discourage biopsy of a clinically suspicious lesion. Electronically Signed By: De bronson/kulwinder:02/10/2022 07:52:09 letter sent: Normal Exam ACR BI-RADS Category 1: Negative [id number]
== END ==
PROVIDERS: Family Provider Family Medicine; PCP Internal Medicine; Referring Provider Internal Medicine; Visit Provider Internal Medicine
DX: Z12.31 Encounter for screening mammogram for malignant neoplasm of breast (principal)
CPT/HCPCS: 77063; 77067

== ENCOUNTER → 2022-03-18 08:26 | Outpatient (CLI) | payer MEDICARE, OTHER, SELFPAY ==
--- NOTE | 2022-03-18 08:28 | DI.MRI.S_ITS ---
PROCEDURE: MR LUMBAR SPINE WO CON INDICATIONS: Low back pain, unspecified TECHNIQUE: Noncontrast sagittal T1 spin echo and T2 fast echo, sagittal STIR, and T2 fast spin echo through the lumbar spine. In cases with scoliosis, additional coronal T2 fast spin echo may be performed. COMPARISON: [facility] [place], MR, MR LUMBAR SPINE WITHOUT CONTRAST, 09/03/2019, 9:27. [facility] [place], CR, XR LUMBAR SPINE 2 OR 3 VIEWS, 03/08/2022, 9:37. FINDINGS: Image quality: Excellent. Alignment and Curvature: There is normal bony alignment. Bone Marrow: Modic type 2 reactive endplate changes noted adjacent to the T11-T12 and L5-S1 discs. No acute vertebral body compression fractures. Spinal Cord: Conus medullaris terminates at the L1 level. Visualized cord demonstrates normal signal and size. Paraspinous Soft Tissues: No paravertebral masses. T11-T12: Loss of disc signal and height. Mild, diffuse disc bulge. Mild narrowing of the central canal. No neural foraminal narrowing. No neural compression. T12-L1: Normal appearance. L1-L2: Normal appearance. L2-L3: Slight loss of disc signal. Mild, diffuse disc bulge. Mild bilateral facet hypertrophy. Mild narrowing of the central canal. No neural foraminal narrowing. No neural compression. L3-L4: Loss of disc signal. Mild to moderate diffuse disc bulge. Ldti-zo-uumkuaam bilateral facet hypertrophy. Moderate ligamentum flavum hypertrophy. Mild to moderate narrowing of the central canal. No neural foraminal narrowing. No neural compression. L4-L5: Loss of disc signal. Mild, diffuse disc bulge. Mild bilateral facet hypertrophy. Mild narrowing of the central canal. No neural foraminal narrowing. No neural compression. Fissure noted in the posterior annulus. L5-S1: Loss of disc signal and height. Mild, diffuse disc bulge. Mild bilateral facet hypertrophy. No central stenosis. Mild to moderate bilateral neural foraminal narrowing. No neural compression. IMPRESSION: 1. Multilevel degenerative disc disease. 2. Multilevel facet arthropathy. 3. No severe central canal narrowing. 4. No severe neural foraminal narrowing. 5. No neural compression. Dictated by: Ibis Echols MD, PhD on 03/20/2022 at 11:06 Approved by: Ibis Echols MD, PhD on 03/20/2022 at 11:13
== END ==
PROVIDERS: Family Provider Family Medicine; PCP Internal Medicine; Referring Provider Physical Medicine & Rehabilitation Pain Medicine; Visit Provider Physical Medicine & Rehabilitation Pain Medicine
DX: M51.36 Other intervertebral disc degeneration, lumbar region (principal); M51.37 Other intervertebral disc degeneration, lumbosacral region; M47.816 Spondylosis without myelopathy or radiculopathy, lumbar region; M47.817 Spondylosis without myelopathy or radiculopathy, lumbosacral region; M54.50 Low back pain, unspecified
CPT/HCPCS: 72148

== ENCOUNTER 2022-04-19 03:51 | Emergency (ER) | payer MEDICARE, OTHER, SELFPAY ==
[2022-04-19] VITALS (11 sets, daily range): BP systolic 120–141; BP diastolic 67–95; PULSE 67–80; RESP 12–18; TEMP 36.4; O2SAT 93–98; BMI 29.2
--- NOTE | 2022-04-19 04:17 | ED_ITS ---
HPI - Chest Pain <Alexander Huff - Last Filed: 04/19/22 07:17> General Chief Complaint: Chest Pain Stated Complaint: Swollen feet and pain in right calf chest pain Time Seen by Provider: 04/19/22 04:08 Source: patient Mode of arrival: Ambulatory Limitations: no limitations History of Present Illness HPI narrative: 67-year-old female who is here for evaluation of several days of episodes where she was having lower extremity swelling. She states that it is worse as the day goes on and then when she wakes up in the morning it is better. She has pain on the front of both of her legs as well. She is not having any shortness of breath but also describes some chest discomfort. No fevers. No coughing. No abdominal pain. No nausea or vomiting. Related Data Home Medications Medication Instructions Recorded Confirmed calcium carbonate 600 mg-vitamin 1 tab PO DAILY 04/09/19 04/09/19 D3 20 mcg (800 unit) chewable tablet (Caltrate 600 plus D) carvedilol 25 mg tablet 25 mg PO BID 04/09/19 04/09/19 felodipine 10 mg tablet,extended 10 mg PO DAILY 04/09/19 04/09/19 release 24 hr fluticasone furoate 50 50 mcg inhalation PRN PRN Allergic 04/09/19 04/09/19 mcg/actuation blister powder for Symptoms inhalation levothyroxine 137 mcg tablet 137 mcg PO DAILY 04/09/19 04/09/19 (Synthroid) losartan 100 mg tablet 100 mg PO DAILY 04/09/19 04/09/19 meloxicam 7.5 mg tablet 7.5 mg PO BID 04/09/19 04/09/19 skpudgts-enn-xcopy acid 0.4 1 tab PO DAILY 04/09/19 04/09/19 mg-lycopene 300 mcg-lutein 250 mcg tablet (Centrum Silver) omega 1-cmr-ewi-fish oil 1,000 mg 1 cap PO BID 04/09/19 04/09/19 (120 mg-180 mg) capsule (Fish Oil) omeprazole 20 mg capsule,delayed 20 mg PO BID 04/09/19 04/09/19 release ranitidine HCl 150 mg capsule 150 mg PO BID 04/09/19 04/09/19 Allergies Allergy/AdvReac Type Severity Reaction Status Date / Time dexamethasone Allergy Severe Rash Verified 09/15/21 19:49 Sulfa (Sulfonamide AdvReac Severe Irritable Verified 09/15/21 19:49 Antibiotics) lisinopril AdvReac Cough Verified 09/15/21 19:49 Review of Systems <Alexander Huff DO - Last Filed: 04/19/22 07:17> Constitutional Constitutional: Reports as per HPI and Reports system reviewed and no additional complaints, except as documented Cardiovascular Cardiovascular: Reports as per HPI and Reports system reviewed and no additional complaints, except as documented Respiratory Respiratory: Reports as per HPI and Reports system reviewed and no additional complaints, except as documented Musculoskeletal Musculoskeletal: Reports system reviewed and no additional complaints, except as documented and Reports as per HPI Integumentary/Breasts Skin/Breast: Reports system reviewed and no additional complaints, except as documented Neurologic Neurologic: Reports system reviewed and no additional complaints, except as documented Hematologic/Lymphatic On Anticoagulants: No Patient History <Alexander Huff DO - Last Filed: 04/19/22 07:17> Medical History Hypertension SVT (supraventricular tachycardia) Social History household members: spouse Smoking Status: Never smoker Smoking Status: Never smoker alcohol intake frequency: holidays/special occasions only Substance Use Type: does not use Exam <Alexander Huff DO - Last Filed: 04/19/22 07:17> Initial Vital Signs Initial Vital Signs: Vital Signs Temperature 97.6 F 04/19/22 04:01 Pulse Rate 75 04/19/22 04:01 Respiratory Rate 16 04/19/22 04:01 Blood Pressure 141/95 H 04/19/22 04:01 Pulse Oximetry 98 04/19/22 04:01 Oxygen Delivery Method 04/19/22 04:01 Const General: cooperative, comfortable and well developed [facility] Head: normal to inspection and normocephalic Resp Effort & Inspection: normal respiratory effort Auscultation: clear to auscultation bilaterally Cardio Rate: regular rate Rhythm: regular rhythm GI Inspection: normal to inspection Palpation: soft Skin General: no rashes or lesions noted Neuro General: patient alert, patient awake, patient oriented x3 and moves all extremities Extrem General: No edema Other: Tender to palpation along the anterior medial aspect of bilateral lower extremities to the knees however right greater than left. Psych Appearance: grossly normal and well kempt <Silvestre Snell DO - Last Filed: 04/19/22 17:46> Initial Vital Signs Initial Vital Signs: Vital Signs Temperature 97.6 F 04/19/22 04:01 Pulse Rate 75 04/19/22 04:01 Respiratory Rate 16 04/19/22 04:01 Blood Pressure 141/95 H 04/19/22 04:01 Pulse Oximetry 98 04/19/22 04:01 Oxygen Delivery Method 04/19/22 04:01 Scores <Alexander Huff DO - Last Filed: 04/19/22 07:17> HEART Score Heart Score history: Slightly Suspicious Heart Score EKG: Normal Heart Score Age: > or = 65 years old Heart Score risk factors: 1-2 risk factors Heart Score troponin: < or = to normal limit Heart Score Total: 3 <Silvestre Snell DO - Last Filed: 04/19/22 17:46> HEART Score Heart Score Total: 3 Course <Alexander Huff DO - Last Filed: 04/19/22 07:17> Orders Ordered: ED Orders 04/19/22 08:56 perip venous low extrem rt Stat Vital Signs Vital signs: Vital Signs - 8 hr 04/19/22 10:41 Pulse Rate 72 Respiratory Rate 18 Blood Pressure 130/70 Pulse Oximetry 96 <Silvestre Snell DO - Last Filed: 04/19/22 17:46> Orders Ordered: ED Orders 04/19/22 08:56 perip venous low extrem rt Stat Vital Signs Vital signs: Vital Signs - 8 hr 04/19/22 10:41 Pulse Rate 72 Respiratory Rate 18 Blood Pressure 130/70 Pulse Oximetry 96 MDM - Chest Pain <DO Neetu Terry Last Filed: 04/19/22 07:17> Lab Data Attestation: I reviewed the patient's lab results. Result diagrams: 04/19/22 04:07 04/19/22 04:07 Labs: Lab Results 04/19/22 04/19/22 04/19/22 Range/Units 04:07 04:07 04:07 WBC 7.5 (4.5-11.0) X10^3/uL RBC 4.36 (4.0-5.2) X10^6/uL Hgb 12.7 (12.0-16.0) g/dL Hct 37.7 (36-46) % MCV 86.6 (80-100) fL MCH 29.1 (26-34) PG MCHC 33.6 (30-36) % RDW 14.2 (11.6-14.8) % Plt Count 385 (150-400) X10^3/uL Neut % (Auto) 70.5 (50-75) % Lymph % (Auto) 13.1 L (25-40) % Weakley % (Auto) 8.0 (3-14) % Eos % (Auto) 6.1 H (2-4) % Baso % (Auto) 2.3 H (0-2) % Neut # (Auto) 5300 (8456-2728) /uL Lymph # (Auto) 1000 L (2027-5876) /uL Weakley # (Auto) 600 (0-900) /uL Eos # (Auto) 500 H (0-450) /uL Baso # (Auto) 200 H (0-100) /uL D-Dimer 431 H (<230) ng/mL Sodium 142 (137-145) mmol/L Potassium 3.8 (3.4-5.1) mmol/L Chloride 108 H (98-107) mmol/L Carbon Dioxide 22 (22-32) mmol/L BUN 29 H (7-17) mg/dL Creatinine 0.91 (0.52-1.04) mg/dL Estimated GFR > 60 (>60) mL/min BUN/Creatinine Ratio 31.9 H (6-22) Glucose 104 (80-110) mg/dL Calcium 8.4 (8.4-10.2) mg/dL Magnesium 2.4 H (1.6-2.3) mg/dL Total Bilirubin 0.4 (0.2-1.3) mg/dL AST 22 (14-36) IU/L ALT 22 (<35) IU/L Alkaline Phosphatase 89 (38-126) U/L Total Creatine Kinase (30-135) U/L CK-MB (CK-2) CK-MB (CK-2) Rel Index Troponin I (0.01-0.034) ng/mL NT-Pro-B Natriuret Pep (<125) pg/mL Total Protein 7.1 (6.3-8.2) g/dL Albumin 4.1 (3.5-5.0) g/dL Globulin 3.0 (1.7-4.1) g/dL Albumin/Globulin Ratio 1.4 (1.0-2.8) Lipase 97 (23-300) U/L SARS-CoV-2 (PCR) (Negative) 04/19/22 04/19/22 04/19/22 Range/Units 04:07 04:30 07:01 WBC (4.5-11.0) X10^3/uL RBC (4.0-5.2) X10^6/uL Hgb (12.0-16.0) g/dL Hct (36-46) % MCV (80-100) fL MCH (26-34) PG MCHC (30-36) % RDW (11.6-14.8) % Plt Count (150-400) X10^3/uL Neut % (Auto) (50-75) % Lymph % (Auto) (25-40) % Weakley % (Auto) (3-14) % Eos % (Auto) (2-4) % Baso % (Auto) (0-2) % Neut # (Auto) (3315-0984) /uL Lymph # (Auto) (8902-2074) /uL Weakley # (Auto) (0-900) /uL Eos # (Auto) (0-450) /uL Baso # (Auto) (0-100) /uL D-Dimer (<230) ng/mL Sodium (137-145) mmol/L Potassium (3.4-5.1) mmol/L Chloride (98-107) mmol/L Carbon Dioxide (22-32) mmol/L BUN (7-17) mg/dL Creatinine (0.52-1.04) mg/dL Estimated GFR (>60) mL/min BUN/Creatinine Ratio (6-22) Glucose (80-110) mg/dL Calcium (8.4-10.2) mg/dL Magnesium (1.6-2.3) mg/dL Total Bilirubin (0.2-1.3) mg/dL AST (14-36) IU/L ALT (<35) IU/L Alkaline Phosphatase (38-126) U/L Total Creatine Kinase 86 70 (30-135) U/L CK-MB (CK-2) TNP TNP CK-MB (CK-2) Rel Index TNP TNP Troponin I < 0.012 < 0.012 (0.01-0.034) ng/mL NT-Pro-B Natriuret Pep 121 (<125) pg/mL Total Protein (6.3-8.2) g/dL Albumin (3.5-5.0) g/dL Globulin (1.7-4.1) g/dL Albumin/Globulin Ratio (1.0-2.8) Lipase (23-300) U/L SARS-CoV-2 (PCR) Negative (Negative) Imaging Data Chest x-ray: Radiologist's Impression: No acute pulmonary abnormality CT scan - chest: Radiologist's Impression: No prominent embolism aneurysm or aortic dissection Was a continuation the lung parenchyma suggestive of reactive airway disease ECG Data Attestation: I personally reviewed and interpreted this ECG as follows: Prior ECG tracings: available for review Interpretation: Sinus rhythm Ventricular rate is 74 Normal axis QRS 134 milliseconds LVH Unchanged from EKG September 2021 MDM Narrative Medical decision making narrative: Nontoxic appearing. Chest x-ray is unremarkable. Age adjusted D-dimer is elevated. Subsequent chest CT shows no signs of pulmonary embolism. EKG is unchanged from September 2021. Initial troponin negative. Patient staying for 2nd troponin. Care turned over to Dr. Snell to follow-up and disposition. <Silvestre Snell, - Last Filed: 04/19/22 17:46> Lab Data Labs: Lab Results 04/19/22 04/19/22 04/19/22 Range/Units 04:07 04:07 04:07 WBC 7.5 (4.5-11.0) X10^3/uL RBC 4.36 (4.0-5.2) X10^6/uL Hgb 12.7 (12.0-16.0) g/dL Hct 37.7 (36-46) % MCV 86.6 (80-100) fL MCH 29.1 (26-34) PG MCHC 33.6 (30-36) % RDW 14.2 (11.6-14.8) % Plt Count 385 (150-400) X10^3/uL Neut % (Auto) 70.5 (50-75) % Lymph % (Auto) 13.1 L (25-40) % Weakley % (Auto) 8.0 (3-14) % Eos % (Auto) 6.1 H (2-4) % Baso % (Auto) 2.3 H (0-2) % Neut # (Auto) 5300 (7568-0849) /uL Lymph # (Auto) 1000 L (3612-1121) /uL Weakley # (Auto) 600 (0-900) /uL Eos # (Auto) 500 H (0-450) /uL Baso # (Auto) 200 H (0-100) /uL D-Dimer 431 H (<230) ng/mL Sodium 142 (137-145) mmol/L Potassium 3.8 (3.4-5.1) mmol/L Chloride 108 H (98-107) mmol/L Carbon Dioxide 22 (22-32) mmol/L BUN 29 H (7-17) mg/dL Creatinine 0.91 (0.52-1.04) mg/dL Estimated GFR > 60 (>60) mL/min BUN/Creatinine Ratio 31.9 H (6-22) Glucose 104 (80-110) mg/dL Calcium 8.4 (8.4-10.2) mg/dL Magnesium 2.4 H (1.6-2.3) mg/dL Total Bilirubin 0.4 (0.2-1.3) mg/dL AST 22 (14-36) IU/L ALT 22 (<35) IU/L Alkaline Phosphatase 89 (38-126) U/L Total Creatine Kinase (30-135) U/L CK-MB (CK-2) CK-MB (CK-2) Rel Index Troponin I (0.01-0.034) ng/mL NT-Pro-B Natriuret Pep (<125) pg/mL Total Protein 7.1 (6.3-8.2) g/dL Albumin 4.1 (3.5-5.0) g/dL Globulin 3.0 (1.7-4.1) g/dL Albumin/Globulin Ratio 1.4 (1.0-2.8) Lipase 97 (23-300) U/L SARS-CoV-2 (PCR) (Negative) 04/19/22 04/19/22 04/19/22 Range/Units 04:07 04:30 07:01 WBC (4.5-11.0) X10^3/uL RBC (4.0-5.2) X10^6/uL Hgb (12.0-16.0) g/dL Hct (36-46) % MCV (80-100) fL MCH (26-34) PG MCHC (30-36) % RDW (11.6-14.8) % Plt Count (150-400) X10^3/uL Neut % (Auto) (50-75) % Lymph % (Auto) (25-40) % Weakley % (Auto) (3-14) % Eos % (Auto) (2-4) % Baso % (Auto) (0-2) % Neut # (Auto) (3202-6467) /uL Lymph # (Auto) (4216-7268) /uL Weakley # (Auto) (0-900) /uL Eos # (Auto) (0-450) /uL Baso # (Auto) (0-100) /uL D-Dimer (<230) ng/mL Sodium (137-145) mmol/L Potassium (3.4-5.1) mmol/L Chloride (98-107) mmol/L Carbon Dioxide (22-32) mmol/L BUN (7-17) mg/dL Creatinine (0.52-1.04) mg/dL Estimated GFR (>60) mL/min BUN/Creatinine Ratio (6-22) Glucose (80-110) mg/dL Calcium (8.4-10.2) mg/dL Magnesium (1.6-2.3) mg/dL Total Bilirubin (0.2-1.3) mg/dL AST (14-36) IU/L ALT (<35) IU/L Alkaline Phosphatase (38-126) U/L Total Creatine Kinase 86 70 (30-135) U/L CK-MB (CK-2) TNP TNP CK-MB (CK-2) Rel Index TNP TNP Troponin I < 0.012 < 0.012 (0.01-0.034) ng/mL NT-Pro-B Natriuret Pep 121 (<125) pg/mL Total Protein (6.3-8.2) g/dL Albumin (3.5-5.0) g/dL Globulin (1.7-4.1) g/dL Albumin/Globulin Ratio (1.0-2.8) Lipase (23-300) U/L SARS-CoV-2 (PCR) Negative (Negative) Imaging Data US - DVT: Radiologist's Impression: [address] [address] Ultrasound Report Signed Patient: Kajal Sumner MR#: [id number] : 1955 Acct:[id number] Age/Sex: 67 / F Date of Service: 04/19/22 Loc: ED Accession Number: [id number] ?? Procedure: US periph venous low extrem rt Ordering Provider: Silvestre Snell D.O. PROCEDURE:? US PERIPH VENOUS LOW EXTREM RT ? INDICATIONS:? PAIN, SWELLING ? TECHNIQUE:? Real-time imaging, as well as color and pulse Doppler interrogation, were performed of the lower extremity deep veins from the inguinal ligament to the popliteal fossa.? ? COMPARISON:? None. ? FINDINGS:? The common femoral, femoral and popliteal veins are normally compressible, and free of intraluminal thrombus.? Color and pulse Doppler demonstrate normal phasic intraluminal flow.? There is normal augmentation response to distal compression maneuver. ? ? IMPRESSION:? No evidence of deep vein thrombosis involving the right lower extremity. ? ? Dictated by: Ibis Echols MD, PhD on 04/19/2022 at 9:22 ? ? Approved by: Ibis Echols MD, PhD on 04/19/2022 at 9:22 ? MDM Narrative Medical decision making narrative: Nontoxic appearing. Chest x-ray is unremarkable. Age adjusted D-dimer is elevated. Subsequent chest CT shows no signs of pulmonary embolism. EKG is unchanged from September 2021. Initial troponin negative. Patient staying for 2nd troponin. Care turned over to Dr. Snell to follow-up and disposition. [0700] ([place]) Patient received in sign out from [Daria]. I have reviewed the clinical course and performed an independent history and physical exam. Currently pain free. Awaiting repeat troponin. patient pain free, no ongoing symptoms. EKGs nonischemic, low risk per heart score. CT angiogram unremarkable. No appreciable swelling and lower extremities though she does have some pain on palpation of her right calf, ultrasound was obtained and shows no evidence of clot, Hernández cyst or other. No evidence of cellulitis or any significant findings whatsoever. Discharge Plan Departure Patient Disposition: Home Clinical Impression: Atypical chest pain, Acute leg pain Instructions: DI for Atypical Chest Pain Activity Restrictions/Additional Instructions: *You have been diagnosed with [atypical chest pain and right calf pain. As we discussed your history and physical exam as well as EKGs, labs, CT scan and ultrasound are very reassuring and there is no evidence of heart attack, blood clot in your chest or leg.] *What to do: *Please continue to take your regular medications as directed. [ ] New medication prescriptions sent to your pharmacy: [ ] [ ] New medication written as a paper prescription [ x] No new medications given *Please follow up with your primary care provider in 2-3 days, call for an appointment. Let them know you were seen in the Emergency Department and that we ask that you be seen in follow up. We will electronically transmit a record of today's note if your PCP is in our system *If you do not have a primary care provider please contact the [facility] Resource line at [phone]. They will ask some questions about your medical history and help get you set up with a doctor in the community. *Return to Emergency Department if you should have any new, worsening or concerning symptoms, such as [fever greater than 101 F, shaking chills, worsening pain, persistent vomiting or other bothersome symptoms] Prescriptions: No Action levothyroxine [Synthroid] 137 mcg Tablet 137 mcg PO DAILY carvedilol 25 mg Tablet 25 mg PO BID meloxicam 7.5 mg Tablet 7.5 mg PO BID omeprazole 20 mg Capsule,Delayed Release(Dr/Ec) 20 mg PO BID felodipine 10 mg Tablet Extended Release 24 Hr 10 mg PO DAILY ranitidine HCl 150 mg Capsule 150 mg PO BID losartan 100 mg Tablet 100 mg PO DAILY Centrum Silver 0.4-300-250 mg-mcg-mcg Tablet 1 tab PO DAILY omega 3-ylu-pib-fish oil [Fish Oil] 1,000 mg (120 mg-180 mg) Capsule 1 cap PO BID Caltrate 600 plus D 600 mg (1,500 mg)-800 unit Tablet,Chewable 1 tab PO DAILY fluticasone furoate 50 mcg/actuation Blister With Device 50 mcg inhalation PRN PRN (Reason: Allergic Symptoms) Referrals: Jose Manuel Winters MD [Primary Care Provider] - Visit Report Forms: Patient Portal/API
--- NOTE | 2022-04-19 04:19 | DI.RAD.S_ITS ---
PROCEDURE: XR CHEST 1V INDICATIONS: SOB TECHNIQUE: One view of the chest was acquired. COMPARISON: [facility], CR, XR CHEST 1V, 09/15/2021, 20:11. FINDINGS: Surgical changes and devices: None. Lungs and pleura: Lungs are clear. No pleural effusions or pneumothorax. Mediastinum: Mediastinal contours appear normal. Heart size is normal. Bones and chest wall: No suspicious bony lesions. Overlying soft tissues appear unremarkable. IMPRESSION: No acute cardiopulmonary pathology. No discrepancies. Dictated by: Destin Leyva M.D. on 04/19/2022 at 8:11 Approved by: Destin Leyva M.D. on 04/19/2022 at 8:11
[2022-04-19 04:28] LABS: D Dimer 431 ng/mL (<230)
[2022-04-19 04:34] LABS: Alanine Aminotransferase 22 IU/L (<35); Albumin 4.1 g/dL (3.5-5.0); Albumin Globulin Ratio 1.4 (1.0-2.8); Alkaline Phosphatase 89 U/L (38-126); Aspartate Aminotransferase 22 IU/L (14-36); BUN Creatinine Ratio 31.9 (6-22); Bilirubin Total 0.4 mg/dL (0.2-1.3); Blood Urea Nitrogen 29 mg/dL (7-17); Calcium 8.4 mg/dL (8.4-10.2); Carbon Dioxide 22 mmol/L (22-32); Chloride 108 mmol/L (98-107); Creatine Kinase 86 U/L (30-135); Estimated Glomerular Filt Rate > 60 mL/min (>60); Glucose 104 mg/dL (80-110); HEMOLYSIS < 15 (0-50); Lipase 97 U/L (23-300); Magnesium 2.4 mg/dL (1.6-2.3); Potassium 3.8 mmol/L (3.4-5.1); Sodium 142 mmol/L (137-145); Total Protein 7.1 g/dL (6.3-8.2)
[2022-04-19 04:46] LABS: Add Manual Diff / Slide Review NO; Basophils Absolute Auto 200 /uL (0-100); Basophils Percent Auto 2.3 % (0-2); Eosinophils Absolute Auto 500 /uL (0-450); Eosinophils Percent Auto 6.1 % (2-4); Hematocrit 37.7 % (36-46); Hemoglobin 12.7 g/dL (12.0-16.0); Lymphocytes Absolute Auto 1000 /uL (1100-4500); Lymphocytes Percent Auto 13.1 % (25-40); Mean Corpuscular HGB Conc 33.6 % (30-36); Mean Corpuscular Hemoglobin 29.1 PG (26-34); Mean Corpuscular Volume 86.6 fL (80-100); Monocytes Absolute Auto 600 /uL (0-900); NT-proBNP (BNP-Adult 18+) 121 pg/mL (<125); Neutrophils Absolute Auto 5300 /uL (1500-7000); Neutrophils Percent Auto 70.5 % (50-75); Platelet Count 385 X10^3/uL (150-400); Red Blood Cell Count 4.36 X10^6/uL (4.0-5.2); Red Cell Distribution Width 14.2 % (11.6-14.8); Troponin I < 0.012 ng/mL (0.01-0.034); White Blood Cell Count 7.5 X10^3/uL (4.5-11.0)
[2022-04-19 04:54] LABS: COVID19 -Nasal RAPID Negative (Negative)
--- NOTE | 2022-04-19 04:59 | DI.CT.S_ITS ---
PROCEDURE: CT ANGIO CHEST PE PROTOCOL INDICATIONS: Chest pain, shortness of breath, tachycardia TECHNIQUE: After the administration of intravenous contrast, 2 mm thick sections acquired from the pulmonary apices to the posterior costophrenic angles. 3-dimensional maximum intensity projection (MIP) coronal and sagittal reformats were then acquired through the thorax. For radiation dose reduction, the following was used: automated exposure control, adjustment of mA and/or kV according to patient size. COMPARISON: [facility], , RENAL COMPLETE, 04/17/2017, 11:06. [facility], US, US ABDOMEN COMPLETE, 04/07/2019, 8:08. [facility], CR, XR CHEST 1V, 04/19/2022, 4:23. FINDINGS: Image quality: Excellent. Pulmonary arteries: Pulmonary arteries are normal in size, and demonstrate no intraluminal filling defects to suggest central pulmonary embolism. Lungs and pleura: Mild mosaic attenuation in lungs bilaterally. No focal consolidations. No pleural effusions or pneumothorax. Central and peripheral airways are patent. Mediastinum: Heart size is normal, without pericardial effusion. No mediastinal or hilar adenopathy. Thoracic aorta is normal in caliber and enhancement. Esophagus is normal in caliber. There is a small hiatal hernia. Bones and chest wall: No suspicious bony lesions. Degenerative changes in thoracic spine. Ribs and thoracic spine appear intact throughout. Thyroid gland is slightly atrophic. No axillary or supraclavicular adenopathy. Abdomen: Visualized upper abdominal solid organs appear normal in the early arterial phase of enhancement. There is a peripelvic cyst in the superior pole of the left kidney. IMPRESSION: 1. No evidence for pulmonary embolism. 2. Mild mosaic attenuation in lungs bilaterally, most likely secondary to reactive airway disease. A differential diagnosis is mild pulmonary edema. No significant discrepancy with the electroplating technician radiology preliminary report. Dictated by: Manuel Vazquez M.D. on 04/19/2022 at 8:24 Approved by: Manuel Vazquez M.D. on 04/19/2022 at 8:29
[2022-04-19 07:19] LABS: Creatine Kinase 70 U/L (30-135)
[2022-04-19 07:35] LABS: Troponin I < 0.012 ng/mL (0.01-0.034)
--- NOTE | 2022-04-19 08:56 | DI.US.S_ITS ---
PROCEDURE: US PERIPH VENOUS LOW EXTREM RT INDICATIONS: PAIN, SWELLING TECHNIQUE: Real-time imaging, as well as color and pulse Doppler interrogation, were performed of the lower extremity deep veins from the inguinal ligament to the popliteal fossa. COMPARISON: None. FINDINGS: The common femoral, femoral and popliteal veins are normally compressible, and free of intraluminal thrombus. Color and pulse Doppler demonstrate normal phasic intraluminal flow. There is normal augmentation response to distal compression maneuver. IMPRESSION: No evidence of deep vein thrombosis involving the right lower extremity. Dictated by: Ibis Echols MD, PhD on 04/19/2022 at 9:22 Approved by: Ibis Echols MD, PhD on 04/19/2022 at 9:22
== END 2022-04-19 10:47 | disposition home or self-care (01) ==
PROVIDERS: Emergency Medicine; Emergency Provider Emergency Medicine; Family Provider Family Medicine; PCP Internal Medicine
DX: R07.89 Other chest pain (principal); M79.604 Pain in right leg; Z20.822 Contact with and (suspected) exposure to COVID-19
CPT/HCPCS: 36415; 71045; 71275; 80053; 82550; 83690; 83735; 83880; 84484; 85025; 85379; 87635; 93005; 93010; 93971; 99284; C9803; Q9967

== ENCOUNTER 2022-08-05 19:21 | Emergency (ER) | payer MEDICARE, OTHER, SELFPAY ==
[2022-08-05] VITALS (7 sets, daily range): BP systolic 128–166; BP diastolic 78–89; PULSE 71–101; RESP 14–22; TEMP 36.7; O2SAT 96–98
--- NOTE | 2022-08-05 19:30 | DI.RAD.S_ITS ---
PROCEDURE: XR CHEST 1V INDICATIONS: chest pain TECHNIQUE: One view of the chest was acquired. COMPARISON: [facility], CR, XR CHEST 1V, 04/19/2022, 4:23. [facility], CR, XR CHEST 1V, 09/15/2021, 20:11. FINDINGS: Surgical changes and devices: None. Lungs and pleura: Lungs are clear. No pleural effusions or pneumothorax. Mediastinum: Mediastinal contours appear normal. Heart size is normal. Bones and chest wall: No suspicious bony lesions. Overlying soft tissues appear unremarkable. IMPRESSION: Normal for age, source of current chest pain symptoms is not seen. Dictated by: Mu Chester M.D. on 08/05/2022 at 20:19 Approved by: Mu Chester M.D. on 08/05/2022 at 20:19
[2022-08-05 20:39] LABS: Add Manual Diff / Slide Review NO; Alanine Aminotransferase 28 IU/L (<35); Albumin 4.3 g/dL (3.5-5.0); Albumin Globulin Ratio 1.2 (1.0-2.8); Alkaline Phosphatase 92 U/L (38-126); Aspartate Aminotransferase 32 IU/L (14-36); BUN Creatinine Ratio 23.3 (6-22); Basophils Absolute Auto 100 /uL (0-100); Basophils Percent Auto 0.5 % (0-2); Bilirubin Total 0.3 mg/dL (0.2-1.3); Blood Urea Nitrogen 30 mg/dL (7-17); Calcium 8.4 mg/dL (8.4-10.2); Carbon Dioxide 24 mmol/L (22-32); Chloride 96 mmol/L (98-107); Creatine Kinase 149 U/L (30-135); Eosinophils Absolute Auto 100 /uL (0-450); Eosinophils Percent Auto 0.5 % (2-4); Estimated Glomerular Filt Rate 45 mL/min (>60); Globulin 3.5 g/dL (1.7-4.1); Glucose 192 mg/dL (80-110); HEMOLYSIS < 15 (0-50); Hematocrit 36.9 % (36-46); Hemoglobin 12.3 g/dL (12.0-16.0); Lipase 75 U/L (23-300); Lymphocytes Absolute Auto 700 /uL (1100-4500); Lymphocytes Percent Auto 6.7 % (25-40); Magnesium 2.5 mg/dL (1.6-2.3); Mean Corpuscular HGB Conc 33.3 % (30-36); Mean Corpuscular Hemoglobin 28.7 PG (26-34); Mean Corpuscular Volume 86.1 fL (80-100); Monocytes Absolute Auto 300 /uL (0-900); Monocytes Percent Auto 2.7 % (3-14); Neutrophils Absolute Auto 9900 /uL (1500-7000); Neutrophils Percent Auto 89.6 % (50-75); Platelet Count 389 X10^3/uL (150-400); Potassium 3.6 mmol/L (3.4-5.1); Red Blood Cell Count 4.29 X10^6/uL (4.0-5.2); Sodium 133 mmol/L (137-145); Total Protein 7.8 g/dL (6.3-8.2)
[2022-08-05 20:46] LABS: NT-proBNP (BNP-Adult 18+) 59 pg/mL (<125)
[2022-08-05 20:49] LABS: Troponin I < 0.012 ng/mL (0.01-0.034)
[2022-08-05 20:54] LABS: CKMB % Relative Index 1.4 % (1.5-5.0); Creatine Kinase MB 2.13 ng/mL (<2.37)
[2022-08-05 21:22] LABS: COVID19 -Nasal RAPID Negative (Negative)
[2022-08-05 23:49] LABS: Troponin I < 0.012 ng/mL (0.01-0.034)
[2022-08-06] VITALS: BP 142/68; PULSE 75; RESP 14; O2SAT 94
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
[2022-08-06 00:30] VITALS: BP 131/74; PULSE 77; RESP 18; O2SAT 94
[2022-08-06 00:52] VITALS: BP 132/77; PULSE 60; RESP 16; O2SAT 100
== END 2022-08-06 00:53 | disposition home or self-care (01) ==
PROVIDERS: Emergency Provider Emergency Medicine; Family Provider Family Medicine; PCP Internal Medicine
DX: R00.2 Palpitations (principal); R07.9 Chest pain, unspecified; Z20.822 Contact with and (suspected) exposure to COVID-19
CPT/HCPCS: 36415; 71045; 80053; 82550; 82553; 83690; 83735; 83880; 84484; 85025; 87635; 93005; 99284; C9803

== ENCOUNTER 2022-08-06 10:03 | Emergency (ER) | payer MEDICARE, OTHER, SELFPAY ==
[2022-08-06] VITALS (9 sets, daily range): BP systolic 128–156; BP diastolic 72–85; PULSE 71–92; RESP 17–18; TEMP 36.8; O2SAT 95–100; BMI 30.2
[2022-08-06 10:45] LABS: Add Manual Diff / Slide Review NO; Basophils Absolute Auto 100 /uL (0-100); Basophils Percent Auto 1.6 % (0-2); Eosinophils Absolute Auto 100 /uL (0-450); Eosinophils Percent Auto 1.5 % (2-4); Hematocrit 35.6 % (36-46); Lymphocytes Absolute Auto 1000 /uL (1100-4500); Lymphocytes Percent Auto 11.6 % (25-40); Mean Corpuscular HGB Conc 33.8 % (30-36); Mean Corpuscular Volume 85.8 fL (80-100); Monocytes Absolute Auto 800 /uL (0-900); Neutrophils Absolute Auto 6400 /uL (1500-7000); Neutrophils Percent Auto 76.3 % (50-75); Platelet Count 362 X10^3/uL (150-400); Red Blood Cell Count 4.15 X10^6/uL (4.0-5.2); Red Cell Distribution Width 13.8 % (11.6-14.8); White Blood Cell Count 8.4 X10^3/uL (4.5-11.0)
[2022-08-06 10:50] LABS: INR 1.8 (0.9-1.3); Prothrombin Time 20.4 SECONDS (10.1-12.7)
[2022-08-06] MEDS: SODIUM CHLORIDE 0.9% 1,000 ML 150 ML IV (10:50)
[2022-08-06 10:51] LABS: D Dimer 216 ng/ml (<500)
[2022-08-06 10:54] LABS: Alanine Aminotransferase 25 IU/L (<35); Albumin Globulin Ratio 1.2 (1.0-2.8); Alkaline Phosphatase 72 U/L (38-126); Aspartate Aminotransferase 23 IU/L (14-36); BUN Creatinine Ratio 24.3 (6-22); Bilirubin Total 0.5 mg/dL (0.2-1.3); Blood Urea Nitrogen 25 mg/dL (7-17); Calcium 8.1 mg/dL (8.4-10.2); Carbon Dioxide 29 mmol/L (22-32); Chloride 96 mmol/L (98-107); Creatine Kinase 107 U/L (30-135); Estimated Glomerular Filt Rate 60 mL/min (>60); Globulin 3.4 g/dL (1.7-4.1); Glucose 98 mg/dL (80-110); HEMOLYSIS < 15 (0-50); Lipase 53 U/L (23-300); Sodium 134 mmol/L (137-145); Total Protein 7.4 g/dL (6.3-8.2)
--- NOTE | 2022-08-06 10:58 | DI.US.S_ITS ---
PROCEDURE: US ABDOMEN LIMITED INDICATIONS: EPIGASTRIC PAIN RADIATING TO SHOULDER TECHNIQUE: Real-time scanning was performed of the abdominal and retroperitoneal organs, with image documentation. COMPARISON: [facility], CT, CT ANGIO CHEST PE PROTOCOL, 04/19/2022, 5:13. [facility], US, US ABDOMEN COMPLETE, 04/07/2019, 8:08. FINDINGS: Liver: Liver is normal in size and homogeneous in echotexture. Gallbladder: Nondilated. No stones or sludge. Normal gallbladder wall thickness. No pericholecystic fluid. Negative sonographic Garcia's sign. Biliary ducts: Intrahepatic bile ducts are non-dilated. Extrahepatic bile duct caliber measures 6 mm. Linear echogenic focus measuring 0.4 cm at the CBD/CHD. No posterior acoustic shadowing. Normal is 6-7 mm or less in diameter, or 10 mm or less post-cholecystectomy. Pancreas: Visualized portions of the pancreas are sonographically normal. Tail is not well seen. Incidental right kidney pelviectasis versus extrarenal pelvis. IMPRESSION: 1. No acute cholecystitis. No gallstones. 2. Linear echogenic focus at the CHD. Suspect artifact over choledocholithiasis. Dictated by: Allan Herrera M.D. on 08/06/2022 at 11:29 Approved by: Allan Herrera M.D. on 08/06/2022 at 11:34
--- NOTE | 2022-08-06 11:02 | ED.CHESTPAIN ---
HPI - Chest Pain General Chief Complaint: Chest Pain Stated Complaint: pain moving in a circular pattern in chest Time Seen by Provider: 08/06/22 10:12 Source: patient and family Mode of arrival: Family Vehicle Limitations: no limitations History of Present Illness HPI narrative: 67-year-old female nonsmoker with only very occasional alcohol consumption, hypertension, atrial flutter and prior ablation presents with her in the chief complaint of left-sided lower chest pain with radiation across chest to both sides and perhaps her shoulder blade that woke her up at about 4:00 a.m.. She states at its most intense it was 8/10 and currently she is symptom free. She is had 4 episodes of the pain coming which starts in her left anterior chest and radiates across as mentioned that seemed to last 10-15 minutes. She denies associated symptoms such as dizziness, weakness or lightheadedness. She has no nausea, vomiting or diarrhea. She denies recent travel or injury nor any history of blood clot. She has a remote history of thyroid cancer. Related Data Home Medications Medication Instructions Recorded Confirmed calcium carbonate 600 mg-vitamin 1 tab PO DAILY 04/09/19 04/09/19 D3 20 mcg (800 unit) chewable tablet (Caltrate 600 plus D) carvedilol 25 mg tablet 25 mg PO BID 04/09/19 04/09/19 felodipine 10 mg tablet,extended 10 mg PO DAILY 04/09/19 04/09/19 release 24 hr fluticasone furoate 50 50 mcg inhalation PRN PRN Allergic 04/09/19 04/09/19 mcg/actuation blister powder for Symptoms inhalation levothyroxine 137 mcg tablet 137 mcg PO DAILY 04/09/19 04/09/19 (Synthroid) losartan 100 mg tablet 100 mg PO DAILY 04/09/19 04/09/19 meloxicam 7.5 mg tablet 7.5 mg PO BID 04/09/19 04/09/19 yjkjjjzm-toq-cfklr acid 0.4 1 tab PO DAILY 04/09/19 04/09/19 mg-lycopene 300 mcg-lutein 250 mcg tablet (Centrum Silver) omega 1-ese-dbn-fish oil 1,000 mg 1 cap PO BID 04/09/19 04/09/19 (120 mg-180 mg) capsule (Fish Oil) omeprazole 20 mg capsule,delayed 20 mg PO BID 04/09/19 04/09/19 release ranitidine HCl 150 mg capsule 150 mg PO BID 04/09/19 04/09/19 Previous Rx's Medication Instructions Recorded benzonatate 100 mg capsule 100 mg PO Q6H PRN cough #14 caps 08/06/22 Allergies Allergy/AdvReac Type Severity Reaction Status Date / Time dexamethasone Allergy Severe Rash Verified 09/15/21 19:49 Sulfa (Sulfonamide AdvReac Severe Irritable Verified 09/15/21 19:49 Antibiotics) lisinopril AdvReac Cough Verified 09/15/21 19:49 Review of Systems Review of Systems Narrative: GENERAL: Denies chills, fatigue, malaise, fever, sweats. HEENT: Denies sinus pain, ear pain, sore throat, difficulty swallowing, dizziness. RESPIRATORY: Denies dyspnea, cough, wheezing, hemoptysis, sputum. CARDIOVASCULAR: See HPI GASTROINTESTINAL: See HPI : Denies dysuria, frequency, incontinence, hematuria, urinary retention. MUSCULOSKELETAL: denies weakness, joint pain, or bony pain SKIN: Denies rash, skin lesions, or other NEUROLOGIC: Denies weakness, headache, numbness, change in speech, confusion, seizures, incoordination. PSYCHIATRIC: No concerning psychosocial issues. 12 point review of systems is negative except for those stated above Patient History Medical History Hypertension SVT (supraventricular tachycardia) Social History household members: spouse Smoking Status: Never smoker Smoking Status: Never smoker alcohol intake frequency: holidays/special occasions only Substance Use Type: does not use Exam Narrative Exam Narrative: GENERAL: [67] year old patient appears stated age. Well-developed patient, in mild distress. HEAD: Atraumatic. Normocephalic. EYES: Pupils equal round and reactive. Extraocular motions intact. No scleral icterus. No injection or drainage. ENT: Nose without bleeding, purulent drainage. Throat without erythema, tonsillar hypertrophy or exudate. Airway patent. NECK: Trachea midline. Non tender CARDIOVASCULAR: Regular rate and rhythm without murmurs, gallops, or rubs. RESPIRATORY: Clear to auscultation. Breath sounds equal bilaterally. No wheezes, rales, or rhonchi. GASTROINTESTINAL: Abdomen soft, epigastrium and right upper quadrant tender to palpation, negative Garcia's sign, nondistended. EXTREMITIES: No edema or joint tenderness. BACK: Nontender without deformity or crepitance. No flank tenderness. NEURO: AOx3. SKIN: No rash or erythema of visible areas Initial Vital Signs Initial Vital Signs: Vital Signs Temperature 98.2 F 08/06/22 10:15 Pulse Rate 85 08/06/22 10:15 Respiratory Rate 18 08/06/22 10:15 Blood Pressure 156/74 H 08/06/22 10:15 Pulse Oximetry 100 08/06/22 10:15 Oxygen Delivery Method 08/06/22 10:15 Scores HEART Score Heart Score history: Slightly Suspicious Heart Score EKG: Normal Heart Score Age: > or = 65 years old Heart Score risk factors: 1-2 risk factors Heart Score troponin: < or = to normal limit Heart Score Total: 3 Course Orders Ordered: ED Orders 08/06/22 10:13 EKG-12 Lead Stat 08/06/22 10:33 Complete Blood Count AUTO DIFF Stat Comprehensive Metabolic Panel Stat D Dimer Stat Lipase Stat NT-proBNP (BNP-Adult 18+) Stat Procalcitonin Stat Prothrombin Time INR Stat Troponin & CK Cardiac Panel Stat 08/06/22 10:58 US abdomen limited Stat 08/06/22 12:16 CT angio chest abdomen pelvis Stat 08/06/22 15:05 Urine Culture Stat Urine Microscopic Stat 08/06/22 16:08 Troponin & CK Cardiac Panel Stat Sodium Chloride (Normal Saline 0.9%) 1,000 mls @ 150 mls/hr IV CONT ALE Last Admin: 08/06/22 10:50 Dose: 150 mls/hr Documented By: ALEKSANDR Vital Signs Vital signs: Vital Signs - 8 hr 08/06/22 10:15 08/06/22 10:40 08/06/22 11:00 Temperature 98.2 F Pulse Rate 85 77 Respiratory Rate 18 Blood Pressure 156/74 H 150/73 H Pulse Oximetry 100 98 Oxygen Delivery Method Room Air 08/06/22 11:00 08/06/22 13:13 08/06/22 11:20 Temperature Pulse Rate 73 78 80 Respiratory Rate 18 Blood Pressure 137/75 Pulse Oximetry 96 98 98 Oxygen Delivery Method Room Air 08/06/22 11:20 08/06/22 11:30 08/06/22 11:40 Temperature Pulse Rate 71 Respiratory Rate Blood Pressure 140/76 141/72 H Pulse Oximetry 95 Oxygen Delivery Method 08/06/22 11:40 Temperature Pulse Rate 74 Respiratory Rate Blood Pressure Pulse Oximetry 96 Oxygen Delivery Method MDM - Chest Pain Lab Data Result diagrams: 08/06/22 10:33 08/06/22 10:33 Labs: Lab Results 08/06/22 08/06/22 08/06/22 Range/Units 10:33 10:33 10:33 WBC 8.4 (4.5-11.0) X10^3/uL RBC 4.15 (4.0-5.2) X10^6/uL Hgb 12.0 (12.0-16.0) g/dL Hct 35.6 L (36-46) % MCV 85.8 (80-100) fL MCH 29.0 (26-34) PG MCHC 33.8 (30-36) % RDW 13.8 (11.6-14.8) % Plt Count 362 (150-400) X10^3/uL Neut % (Auto) 76.3 H (50-75) % Lymph % (Auto) 11.6 L (25-40) % Craig % (Auto) 9.0 (3-14) % Eos % (Auto) 1.5 L (2-4) % Baso % (Auto) 1.6 (0-2) % Neut # (Auto) 6400 (9178-4499) /uL Lymph # (Auto) 1000 L (4870-3048) /uL Craig # (Auto) 800 (0-900) /uL Eos # (Auto) 100 (0-450) /uL Baso # (Auto) 100 (0-100) /uL PT 20.4 H (10.1-12.7) SECONDS INR 1.8 H (0.9-1.3) D-Dimer 216 (<500) ng/ml Sodium 134 L (137-145) mmol/L Potassium 3.0 L (3.4-5.1) mmol/L Chloride 96 L (98-107) mmol/L Carbon Dioxide 29 (22-32) mmol/L BUN 25 H (7-17) mg/dL Creatinine 1.03 (0.52-1.04) mg/dL Estimated GFR 60 (>60) mL/min BUN/Creatinine Ratio 24.3 H (6-22) Glucose 98 (80-110) mg/dL Calcium 8.1 L (8.4-10.2) mg/dL Total Bilirubin 0.5 (0.2-1.3) mg/dL AST 23 (14-36) IU/L ALT 25 (<35) IU/L Alkaline Phosphatase 72 (38-126) U/L Total Creatine Kinase 107 (30-135) U/L CK-MB (CK-2) 1.38 (<2.37) ng/mL CK-MB (CK-2) Rel Index 1.3 L (1.5-5.0) % Troponin I < 0.012 (0.01-0.034) ng/mL NT-Pro-B Natriuret Pep 79 (<125) pg/mL Total Protein 7.4 (6.3-8.2) g/dL Albumin 4.0 (3.5-5.0) g/dL Globulin 3.4 (1.7-4.1) g/dL Albumin/Globulin Ratio 1.2 (1.0-2.8) Lipase 53 (23-300) U/L Procalcitonin 0.06 (<0.5) ng/mL Urine RBC (0-5/HPF) Urine WBC (0-5/HPF) Urine Bacteria (None) Ur Culture Indicated? 08/06/22 08/06/22 Range/Units 15:05 16:08 WBC (4.5-11.0) X10^3/uL RBC (4.0-5.2) X10^6/uL Hgb (12.0-16.0) g/dL Hct (36-46) % MCV (80-100) fL MCH (26-34) PG MCHC (30-36) % RDW (11.6-14.8) % Plt Count (150-400) X10^3/uL Neut % (Auto) (50-75) % Lymph % (Auto) (25-40) % Craig % (Auto) (3-14) % Eos % (Auto) (2-4) % Baso % (Auto) (0-2) % Neut # (Auto) (9530-8553) /uL Lymph # (Auto) (6884-2397) /uL Craig # (Auto) (0-900) /uL Eos # (Auto) (0-450) /uL Baso # (Auto) (0-100) /uL PT (10.1-12.7) SECONDS INR (0.9-1.3) D-Dimer (<500) ng/ml Sodium (137-145) mmol/L Potassium (3.4-5.1) mmol/L Chloride (98-107) mmol/L Carbon Dioxide (22-32) mmol/L BUN (7-17) mg/dL Creatinine (0.52-1.04) mg/dL Estimated GFR (>60) mL/min BUN/Creatinine Ratio (6-22) Glucose (80-110) mg/dL Calcium (8.4-10.2) mg/dL Total Bilirubin (0.2-1.3) mg/dL AST (14-36) IU/L ALT (<35) IU/L Alkaline Phosphatase (38-126) U/L Total Creatine Kinase 96 (30-135) U/L CK-MB (CK-2) TNP (<2.37) ng/mL CK-MB (CK-2) Rel Index TNP (1.5-5.0) % Troponin I < 0.012 (0.01-0.034) ng/mL NT-Pro-B Natriuret Pep (<125) pg/mL Total Protein (6.3-8.2) g/dL Albumin (3.5-5.0) g/dL Globulin (1.7-4.1) g/dL Albumin/Globulin Ratio (1.0-2.8) Lipase (23-300) U/L Procalcitonin (<0.5) ng/mL Urine RBC 0-1/hpf (0-5/HPF) Urine WBC None seen (0-5/HPF) Urine Bacteria None seen (None) Ur Culture Indicated? Cult not indicated Urine Dip Bedside Urine Glucose Negative Bedside Urine Bilirubin - Negative Bedside Urine Ketone - Negative Urine Specific [place] 1.005 Bedside Urine Occult Blood +/- Bedside Urine pH 7.0 Bedside Urine Protein - Negative Bedside Urine Urobilinogen - Negative Bedside Urine Nitrite - Negative Bedside Urine Leukocytes - Negative Esterase Imaging Data US - abdomen: Radiologist's Impression: [address] [address] Ultrasound Report Signed Patient: Kajal Sumner MR#: [id number] : 1955 Acct:[id number] Age/Sex: 67 / F Date of Service: 08/06/22 Loc: ED Accession Number: [id number] ?? Procedure: US abdomen limited Ordering Provider: Silvestre Snell D.O. PROCEDURE:? US ABDOMEN LIMITED ? INDICATIONS:? EPIGASTRIC PAIN RADIATING TO SHOULDER ? TECHNIQUE:? Real-time scanning was performed of the abdominal and retroperitoneal organs, with image documentation.? ? COMPARISON:? [facility], CT, CT ANGIO CHEST PE PROTOCOL, 04/19/2022, 5:13.? [facility], US, US ABDOMEN COMPLETE, 04/07/2019, 8:08. ? FINDINGS:? ? Liver:? Liver is normal in size and homogeneous in echotexture.? ? Gallbladder:? Nondilated. No stones or sludge. Normal gallbladder wall thickness. No pericholecystic fluid. Negative sonographic Garcia's sign.? ? Biliary ducts:? Intrahepatic bile ducts are non-dilated.? Extrahepatic bile duct caliber measures 6 mm.? Linear echogenic focus measuring 0.4 cm at the CBD/CHD.? No posterior acoustic shadowing.? Normal is 6-7 mm or less in diameter, or 10 mm or less post-cholecystectomy.? ? Pancreas:? Visualized portions of the pancreas are sonographically normal.? Tail is not well seen.? ? Incidental right kidney pelviectasis versus extrarenal pelvis. ? ? IMPRESSION:? 1. No acute cholecystitis.? No gallstones. ? 2. Linear echogenic focus at the CHD.? Suspect artifact over choledocholithiasis. ? ? ? Dictated by: Allan eHrrera M.D. on 08/06/2022 at 11:29 ? ? Approved by: Allan Herrera M.D. on 08/06/2022 at 11:34 ? CT scan - chest: Radiologist's Impression: Close Chest/Abdomen/Pelvis CTA (Signed) Call,Allan - 08/06/22 Abdomen Ultrasound (Signed) Call,Allan - 08/06/22 Launch?Image [address] [address] [address] Scan Report Signed Patient: Kajal Sumner MR#: [id number] : 1955 Acct:[id number] Age/Sex: 67 / F Date of Service: 08/06/22 Loc: ED Accession Number: [id number] ?? Procedure: CT angio chest abdomen pelvis Ordering Provider: Silvestre Snell D.O. PROCEDURE:? CT ANGIO CHEST ABDOMEN PELVIS ? INDICATIONS:? chest, abdomen, back pain, HTN, dissection? ? TECHNIQUE:? Precontrast 5 mm thick sections acquired from the lung apices to the iliac crests.? After the administration of intravenous contrast, 2.5 mm thick sections again acquired from the lung apices to the iliac crests.? Maximum intensity projection (MIP) oblique sagittal and coronal reformats were then acquired.? For radiation dose reduction, the following was used:? automated exposure control.? ? COMPARISON:? [facility], CT, CT ANGIO CHEST PE PROTOCOL, 04/19/2022, 5:13. ? FINDINGS:? Image quality:? Excellent.? ? AORTA:? No acute aortic syndrome.? No aortic dissection.? No aneurysm.? Mild plaque at the aortic arch.? ? No pulmonary embolism. ? CHEST:? Lungs and pleura:? Minimal dependent atelectasis.? No consolidation.? Left lower lobe calcified granuloma.? No pleural effusions or pneumothorax.? Central and peripheral airways are patent and normal in caliber.? ? Mediastinum:? Heart size is normal.? Kwph-nv-gkonkwbt coronary artery calcifications.? No pericardial effusion.? No mediastinal or hilar adenopathy by size criteria.? Central pulmonary arteries are normal in size.? Esophagus is normal in caliber.? Small hiatal hernias.? ? Bones and chest wall:? No axillary adenopathy by size criteria.? Thyroid gland is unremarkable.? No suspicious bony lesions.? No vertebral body compression fractures.? ? ? ABDOMEN:? Vasculature:? No aortic dissection.? Mild calcified plaque.? Celiac trunk and mesenteric arteries are patent.? Mild plaque at the origin of the celiac artery.? Renal arteries are also patent.? Retroaortic left renal vein. ? Solid organs:? Liver is normal in size and enhancement.? No focal lesion.? Gallbladder is not distended. .? Biliary system is non dilated.? Pancreas enhances normally.? Spleen is normal in size and enhancement.? No adrenal nodules.? Both kidneys are normal in size and enhancement, without hydronephrosis.? Large left peripelvic cyst measuring 4.9 x 3.6 cm, (), previously 3.4 x 2.2 cm on 04/19/2022. ? Peritoneum and bowel:? No free fluid or air.? Bowel loops are normal in caliber and wall thickness.? Diverticulosis.? The appendix is not seen. ? Nodes and vessels:? No retroperitoneal or mesenteric adenopathy by size criteria.? Inferior vena cava is normal in morphology.? ? Miscellaneous:? No significant ventral hernias.? ? ? PELVIS:? Genitourinary:? Bladder wall thickness is normal.? No stones.? Uterus is absent.? ? Miscellaneous:? No inguinal hernias or adenopathy.? No ventral hernias.? ? Bones:? No suspicious bony lesions.? Multilevel DDD.? No vertebral body compression fractures.? ? ? IMPRESSION:? 1. No aortic dissection.? No pulmonary embolism. ? 2. Lungs are clear.? No pleural effusion. ? 3. No acute abnormality identified in the abdomen or pelvis.? No free fluid. ? 4. Suspect large left peripelvic cyst measuring 4.9 cm which has increased in size compared to 04/19/2022. ? 5. Diverticulosis. ? ? ? Dictated by: Allan Herrera M.D. on 08/06/2022 at 12:11 ? ? Approved by: Allan Herrera M.D. on 08/06/2022 at 12:23 ? MDM Narrative Medical decision making narrative: 67-year-old female with reassuring history and physical exam. She is had extensive workup including multiple EKGs that demonstrate a left bundle-branch block which is chronic for her. She is been essentially asymptomatic for the duration of her visit. Vital signs are stable. Multiple troponins are negative. Advanced imaging including CT angiogram of chest abdomen and pelvis are negative for pulmonary embolism or dissection nor other diagnosis requiring a specific intervention. Patient is upright and feeling quite well. She understands and agrees with the diagnosis and plan. She is been given extensive return precautions Discharge Plan Departure Patient Disposition: Home Clinical Impression: Atypical chest pain Instructions: DI for Atypical Chest Pain Activity Restrictions/Additional Instructions: *You have been diagnosed with [atypical chest pain. As we discussed your history and physical exam as well as labs, EKGs and imaging are very reassuring and there is no evidence of heart attack, blood clot, gallbladder pancreas problem nor other diagnosis that requires a specific or immediate intervention *What to do: *Please continue to take your regular medications as directed. [ ] New medication prescriptions sent to your pharmacy: [ ] [ ] New medication written as a paper prescription [ x] No new medications given *Please follow up with your primary care provider in 2-3 days, call for an appointment. Let them know you were seen in the Emergency Department and that we ask that you be seen in follow up. We will electronically transmit a record of today's note if your PCP is in our system *If you do not have a primary care provider please contact the [facility] Resource line at [phone]. They will ask some questions about your medical history and help get you set up with a doctor in the community. *Return to Emergency Department if you should have any new, worsening or concerning symptoms, such as [fever greater than 101 F, shaking chills, worsening pain, persistent vomiting or other bothersome symptoms] Prescriptions: No Action benzonatate 100 mg capsule 100 mg PO Q6H PRN (Reason: cough) Qty: 14 0RF levothyroxine [Synthroid] 137 mcg Tablet 137 mcg PO DAILY carvedilol 25 mg Tablet 25 mg PO BID meloxicam 7.5 mg Tablet 7.5 mg PO BID omeprazole 20 mg Capsule,Delayed Release(Dr/Ec) 20 mg PO BID felodipine 10 mg Tablet Extended Release 24 Hr 10 mg PO DAILY ranitidine HCl 150 mg Capsule 150 mg PO BID losartan 100 mg Tablet 100 mg PO DAILY Centrum Silver 0.4-300-250 mg-mcg-mcg Tablet 1 tab PO DAILY omega 3-eqc-zmq-fish oil [Fish Oil] 1,000 mg (120 mg-180 mg) Capsule 1 cap PO BID Caltrate 600 plus D 600 mg (1,500 mg)-800 unit Tablet,Chewable 1 tab PO DAILY fluticasone furoate 50 mcg/actuation Blister With Device 50 mcg inhalation PRN PRN (Reason: Allergic Symptoms) Referrals: Jose Manuel Winters MD [Primary Care Provider] -
[2022-08-06 11:06] LABS: NT-proBNP (BNP-Adult 18+) 79 pg/mL (<125); Troponin I < 0.012 ng/mL (0.01-0.034)
[2022-08-06 11:09] LABS: CKMB % Relative Index 1.3 % (1.5-5.0); Creatine Kinase MB 1.38 ng/mL (<2.37)
[2022-08-06 11:11] LABS: Procalcitonin 0.06 ng/mL (<0.5)
--- NOTE | 2022-08-06 12:16 | DI.CT.S_ITS ---
PROCEDURE: CT ANGIO CHEST ABDOMEN PELVIS INDICATIONS: chest, abdomen, back pain, HTN, dissection? TECHNIQUE: Precontrast 5 mm thick sections acquired from the lung apices to the iliac crests. After the administration of intravenous contrast, 2.5 mm thick sections again acquired from the lung apices to the iliac crests. Maximum intensity projection (MIP) oblique sagittal and coronal reformats were then acquired. For radiation dose reduction, the following was used: automated exposure control. COMPARISON: [facility], CT, CT ANGIO CHEST PE PROTOCOL, 04/19/2022, 5:13. FINDINGS: Image quality: Excellent. AORTA: No acute aortic syndrome. No aortic dissection. No aneurysm. Mild plaque at the aortic arch. No pulmonary embolism. CHEST: Lungs and pleura: Minimal dependent atelectasis. No consolidation. Left lower lobe calcified granuloma. No pleural effusions or pneumothorax. Central and peripheral airways are patent and normal in caliber. Mediastinum: Heart size is normal. Sgsl-po-dztniomj coronary artery calcifications. No pericardial effusion. No mediastinal or hilar adenopathy by size criteria. Central pulmonary arteries are normal in size. Esophagus is normal in caliber. Small hiatal hernias. Bones and chest wall: No axillary adenopathy by size criteria. Thyroid gland is unremarkable. No suspicious bony lesions. No vertebral body compression fractures. ABDOMEN: Vasculature: No aortic dissection. Mild calcified plaque. Celiac trunk and mesenteric arteries are patent. Mild plaque at the origin of the celiac artery. Renal arteries are also patent. Retroaortic left renal vein. Solid organs: Liver is normal in size and enhancement. No focal lesion. Gallbladder is not distended. . Biliary system is non dilated. Pancreas enhances normally. Spleen is normal in size and enhancement. No adrenal nodules. Both kidneys are normal in size and enhancement, without hydronephrosis. Large left peripelvic cyst measuring 4.9 x 3.6 cm, (), previously 3.4 x 2.2 cm on 04/19/2022. Peritoneum and bowel: No free fluid or air. Bowel loops are normal in caliber and wall thickness. Diverticulosis. The appendix is not seen. Nodes and vessels: No retroperitoneal or mesenteric adenopathy by size criteria. Inferior vena cava is normal in morphology. Miscellaneous: No significant ventral hernias. PELVIS: Genitourinary: Bladder wall thickness is normal. No stones. Uterus is absent. Miscellaneous: No inguinal hernias or adenopathy. No ventral hernias. Bones: No suspicious bony lesions. Multilevel DDD. No vertebral body compression fractures. IMPRESSION: 1. No aortic dissection. No pulmonary embolism. 2. Lungs are clear. No pleural effusion. 3. No acute abnormality identified in the abdomen or pelvis. No free fluid. 4. Suspect large left peripelvic cyst measuring 4.9 cm which has increased in size compared to 04/19/2022. 5. Diverticulosis. Dictated by: Allan Herrera M.D. on 08/06/2022 at 12:11 Approved by: Allan Herrera M.D. on 08/06/2022 at 12:23
[2022-08-06 15:41] LABS: RBC Urine 0-1/HPF (0-5/HPF); WBC Urine None Seen (0-5/HPF)
[2022-08-06 15:42] LABS: Bacteria Urine None Seen; Culture Indicated Urine Cult Not Indicated
[2022-08-06 16:36] LABS: Creatine Kinase 96 U/L (30-135)
[2022-08-06 16:49] LABS: Troponin I < 0.012 ng/mL (0.01-0.034)
[2022-08-06] MEDS: ACETAMINOPHEN 325 MG TABLET 975 MG PO (17:41)
== END 2022-08-06 17:43 | disposition home or self-care (01) ==
PROVIDERS: Emergency Provider Emergency Medicine; Family Provider Family Medicine; PCP Internal Medicine
DX: R07.89 Other chest pain (principal); R10.13 Epigastric pain
CPT/HCPCS: 36415; 71275; 74174; 76705; 80053; 81003; 81015; 82550; 82553; 83690; 83880; 84145; 84484; 85025; 85379; 85610; 87086; 93005; 99284; Q9967

== ENCOUNTER 2022-10-23 07:11 | Day surgery (SDC) | payer MEDICARE, OTHER, SELFPAY ==
--- NOTE | 2022-10-23 | PATH_ITS ---
[facility] Accession Number: [id number] No. of containers..03 Tissue . 01 Material submitted: . PART A: stomach - ANTRUM PART B: stomach - CARDIA PART C: esophagus, E-G Junction - GE JUNCTION . 01 Diagnosis: A. Stomach, Antrum, Biopsy: Antral mucosa with reactive gastropathy and mild chronic inflammation. No evidence of Helicobacter on H/E stain. Negative for intestinal metaplasia. Negative for dysplasia and malignancy. . B. Stomach, Cardia, Biopsy: Gastric hyperplastic polyp with superficial erosion. No evidence of Helicobacter on H/E stain. Negative for intestinal metaplasia. Negative for dysplasia and malignancy. . C. Gastroesophageal Junction, Biopsy: Squamocolumnar junctional mucosa with mild active inflammation, consistent with reflux esophagitis. Negative for intestinal metaplasia. Negative for dysplasia and malignancy. [facility] 10/25/2022 1036 Local . 01 Electronically signed: . Erica Blanco MD, Pathologist NPI- [id number] . 01 Gross description: . Part A: ANTRUM: Received in formalin is 1 fragment(s) of dolan, soft tissue measuring 0.3 x 0.2 x 0.1 cm submitted entirely in 1 cassette(s) Part B: CARDIA: Received in formalin are 2 fragment(s) of dolan, soft tissue measuring 0.4 x 0.1 x 0.1 cm to 0.2 x 0.1 x 0.1 cm submitted entirely in 1 cassette(s) Part C: GE JUNCTION: Received in formalin are 2 fragment(s) of dolan, soft tissue measuring 0.3 x 0.1 x 0.1 cm to 0.2 x 0.1 x 0.1 cm submitted entirely in 1 cassette(s) /CPE 10/24/2022 0542 [facility] . 01 Pathologist provided ICD-10: R10.13 . 01 CPT . 312107, 510915, 275452 Specimen Comment: A courtesy copy of this report has been sent to [phone] Performed at: 01 [facility] [address] [place] [address] [id number] MD Song Rodrigez MD Phone: [phone]
[2022-10-23 07:43] VITALS: BMI 29.2
[2022-10-23 07:51] VITALS: BP 147/81; PULSE 75; RESP 16; TEMP 36.4; O2SAT 100
[2022-10-23] MEDS: LACTATED RINGERS 1,000 ML 84 ML IV (07:53)
--- NOTE | 2022-10-23 08:02 | PM.HP.1 ---
History of Present Illness History of Present Illness Date Patient Seen: 10/23/22 Time Patient Seen: 08:02 Chief complaint: SDC Narrative: I reviewed my recent office note. Much improved with compliance with PPI. Patient History Medical History Hypertension SVT (supraventricular tachycardia) Family & Social History Social History: household members spouse Tobacco & Substance use: Smoking Status Never smoker alcohol intake current alcohol intake frequency holiday/special occasion Substance Use Type does not use Meds Home Medications and Allergies Home Medications Medication Instructions Recorded Confirmed Type levothyroxine 137 mcg tablet 137 mcg PO DAILY 04/09/19 10/23/22 History (Synthroid) algyloyc-cuu-vfcgo acid 0.4 1 tab PO DAILY 04/09/19 10/23/22 History mg-lycopene 300 mcg-lutein 250 mcg tablet (Centrum Silver) omeprazole 20 mg capsule,delayed 20 mg PO BID 04/09/19 10/23/22 History release diltiazem HCl 120 mg capsule,24 120 mg PO DAILY 10/23/22 10/23/22 History hr,extended release famotidine 20 mg tablet 20 mg PO BEDTIME 10/23/22 10/23/22 History fluticasone propionate 50 2 spray intranasal DAILY PRN 10/23/22 10/23/22 History mcg/actuation nasal Allergy Symptoms spray,suspension hydralazine 25 mg tablet 25 mg PO DAILY 10/23/22 10/23/22 History losartan 100 1 tab PO DAILY 10/23/22 10/23/22 History mg-hydrochlorothiazide 25 mg tablet methocarbamol 500 mg tablet 500 mg PO BID PRN Muscle Spasm 10/23/22 10/23/22 History rosuvastatin 5 mg tablet (Crestor) 5 mg PO DAILY 10/23/22 10/23/22 History Allergies Allergy/AdvReac Type Severity Reaction Status Date / Time dexamethasone Allergy Severe Rash Verified 10/23/22 07:34 felodipine Allergy Intermediate Verified 10/23/22 07:43 Sulfa (Sulfonamide AdvReac Severe Irritable Verified 10/23/22 07:34 Antibiotics) lisinopril AdvReac Cough Verified 10/23/22 07:34 bowel prep Allergy Severe Vomiting Uncoded 10/23/22 07:34 Review of Systems Review of Systems ROS: Yes All systems reviewed with the patient and are negative except as otherwise documented Exam Vital Signs (past 8 hours): - 10/23/22 07:51 Temperature 97.6 F Pulse Rate 75 Respiratory Rate 16 Blood Pressure 147/81 H Pulse Oximetry 100 Oxygen Delivery Method Room Air Oxygen Delivery Method Room Air Const General: cooperative HENMT Head: normal to inspection Eyes General: appearance normal, both eyes and all related structures Neck Neck: normal visual inspection Chest Chest: normal inspection of the chest Resp Effort & Inspection: normal respiratory effort Cardio Rate: regular rate GI Inspection: normal to inspection Skin General: no rashes or lesions noted Neuro General: patient alert and patient awake Extrem General: normal to inspection and no pedal edema Psych Appearance: grossly normal Assessment & Plan Assessment & Plan narrative: 67-year-old female Barretts history. Repeat EGD is pursued today. Time Spent With Patient Critical Care time: I spent a total of [] minutes of critical care time on this patient's care today; this time is exclusive of procedural time.
[2022-10-23 08:06] LABS: COVID19 -Nasal RAPID Negative (Negative)
--- NOTE | 2022-10-23 08:28 | PM.PREOP ---
Pre-operative Note COVID-19 COVID-19 status: Negative Result date/Date tested (Pos, Neg/Pending): 10/23/22 Criteria for continued procedure: Possibility delay results in more complex future surgery or treatment Interval Note History & Physical reviewed/Exam performed by Physician: Yes Changes to H&P: No ASA Class (for procedural sedation): II
--- NOTE | 2022-10-23 08:45 | PM.OP.EGD ---
Operative Date/Time/Diagnoses Date of procedure: 10/23/22 Time of procedure: 08:45 Pre-op diagnosis: History of Barretts and reflux Post-op diagnosis: same Procedure & Clinicians Study performed: EGD with biopsies Same procedure as scheduled: Yes Indications: History of Barretts and reflux Surgeon: Binh Moeller Procedure Notes SCOAP/Timeout: Done Procedure in detail: After the risks and benefits were explained, written and verbal informed consent was obtained. The patient was brought into the procedure room and placed into the left lateral decubitus position. Please see anesthesia notes for sedation details. The scope was introduced into the mouth through the bite block and advanced under direct visualization to the 2nd portion of the duodenum. The scope was slowly withdrawn carefully examining the mucosa for any defects or lesions. Retroflexed views were accomplished in the stomach. The stomach was decompressed, the scope was then removed from the patient who tolerated the procedure well. Sedation minutes: 13 Complications: none Impression: 1. Duodenum: No pathology was appreciated from the bulb through to the 2nd portion. 2. Stomach: Mild gastropathy was noted. The antral mucosa was erythematous and biopsies were therefore taken for exclusion of H pylori or other pathology. No outlet obstruction no ulcers no mass lesions. Retroflexed views of the LES disclosed a small sliding hiatal hernia and some erythematous nodularity in the cardia. These nodules were biopsied for histopathology. There was a single erythematous nodule and then a cluster of 4 somewhat contiguous nodules in this location that were sampled. Greatest dimension of the clustered nodules was perhaps 12 mm. 3. Esophagus: The squamocolumnar junction generally correlated with the top of the gastric folds. I did not appreciate this as Barretts. There was a subtle nonobstructing Schatzki's ring and biopsies were taken from the squamocolumnar junction at GE junction for histopathology. No esophagitis no nodularity at the distal esophagus. Endoscopic diagnosis 1. Small hiatal hernia 2. Nonobstructing Schatzki's 3. Gastric cardia nodularity 4. Gastropathy Post-procedure Plan for aftercare: 1. Await histopathology 2. Continue anti-reflux therapy. 3. Surveillance will be contingent on histopathology findings at the cardia. Disposition: PACU
[2022-10-23 08:48] VITALS: BP 98/56; PULSE 63; RESP 16; TEMP 36.2; O2SAT 95
[2022-10-23 08:53] VITALS: BP 107/58; PULSE 60; RESP 16; O2SAT 98
[2022-10-23 09:12] VITALS: BP 114/68; PULSE 54; RESP 14; TEMP 36.7; O2SAT 98
== END 2022-10-23 09:21 | disposition home or self-care (01) ==
PROVIDERS: Family Provider Family Medicine; PCP Internal Medicine; Referring Provider Internal Medicine Gastroenterology; Visit Provider Internal Medicine Gastroenterology
PROC: 0DJ08ZZ Inspection of Upper Intestinal Tract, Via Natural or Artificial Opening Endoscopic (ICD-10-PCS; CPT 43235; principal; 2022-10-23 08:30)
DX: Z87.19 Personal history of other diseases of the digestive system (principal); K22.2 Esophageal obstruction; Z20.822 Contact with and (suspected) exposure to COVID-19; K44.9 Diaphragmatic hernia without obstruction or gangrene; K31.9 Disease of stomach and duodenum, unspecified; K29.50 Unspecified chronic gastritis without bleeding; K31.7 Polyp of stomach and duodenum
CPT/HCPCS: 43239; 87635; C9803; J2704; J3010

== ENCOUNTER 2022-12-11 12:07 | Day surgery (SDC) | payer MEDICARE, OTHER, SELFPAY ==
[2022-12-11] VITALS (7 sets, daily range): BP systolic 113–141; BP diastolic 75–83; PULSE 68–80; RESP 12–20; TEMP 35.6–37.5; O2SAT 93–99; BMI 29.2
--- NOTE | 2022-12-11 | PATH_ITS ---
[facility] Accession Number: [id number] No. of containers..01 Tissue . 01 Material submitted: . gastrointestinal site - CARDIA POLYP . 01 Diagnosis: Stomach, Cardia Polyps, Biopsies: Gastric hyperplastic polyps with patchy erosion. Negative for Helicobacter by immunohistochemistry. Negative for intestinal metaplasia. Negative for dysplasia and malignancy. MRV 12/18/2022 1650 Local . 01 Electronically signed: . Erica Blanco MD, Pathologist NPI- [id number] . 01 Gross description: . CARDIA POLYP: Received in formalin are multiple fragment(s) of dolan, soft tissue measuring 1.0 x 1.0 x 0.1 cm in aggregate submitted entirely in 1 cassette(s) /CPE 12/12/2022 0757 Local . 01 Microscopic: . A. An immunohistochemical stain was performed to evaluate for Helicobacter organisms and is negative. The control stain showed appropriate reactivity. . * This test was developed and its performance characteristics determined by [facility]. It has not been cleared or approved by the U.S. Food and Drug Administration. The FDA has determined that such clearance or approval is not necessary. This test is used for clinical purposes. It should not be regarded as investigational or for research. . 01 Pathologist provided ICD-10: K31.7 . 01 CPT . 901641, A11220 Specimen Comment: A courtesy copy of this report has been sent to [phone] Performed at: 01 [facility] [address] [place] [address], [place], [place] [id number] MD Song Rodrigez MD Phone: [phone]
[2022-12-11] MEDS: LACTATED RINGERS 1,000 ML 42 ML IV (12:36)
--- NOTE | 2022-12-11 12:45 | PM.HP.1 ---
History of Present Illness History of Present Illness Date Patient Seen: 12/11/22 Time Patient Seen: 12:45 Chief complaint: EGD w/poss bx Narrative: History of hyperplastic gastric polyps in need of removal. Patient History Medical History Hypertension SVT (supraventricular tachycardia) Family & Social History Social History: household members spouse Tobacco & Substance use: Smoking Status Never smoker alcohol intake current alcohol intake frequency holiday/special occasion Substance Use Type does not use Meds Home Medications and Allergies Home Medications Medication Instructions Recorded Confirmed Type levothyroxine 137 mcg tablet 137 mcg PO DAILY 04/09/19 10/23/22 History (Synthroid) cbztbyjn-jau-neavp acid 0.4 1 tab PO DAILY 04/09/19 10/23/22 History mg-lycopene 300 mcg-lutein 250 mcg tablet (Centrum Silver) omeprazole 20 mg capsule,delayed 20 mg PO BID 04/09/19 10/23/22 History release diltiazem HCl 120 mg capsule,24 120 mg PO DAILY 10/23/22 10/23/22 History hr,extended release famotidine 20 mg tablet 20 mg PO BEDTIME 10/23/22 10/23/22 History fluticasone propionate 50 2 spray intranasal DAILY PRN 10/23/22 10/23/22 History mcg/actuation nasal Allergy Symptoms spray,suspension hydralazine 25 mg tablet 25 mg PO DAILY 10/23/22 10/23/22 History losartan 100 1 tab PO DAILY 10/23/22 10/23/22 History mg-hydrochlorothiazide 25 mg tablet methocarbamol 500 mg tablet 500 mg PO BID PRN Muscle Spasm 10/23/22 10/23/22 History rosuvastatin 5 mg tablet (Crestor) 5 mg PO DAILY 10/23/22 10/23/22 History Allergies Allergy/AdvReac Type Severity Reaction Status Date / Time dexamethasone Allergy Severe Rash Verified 10/23/22 07:34 felodipine Allergy Intermediate Verified 10/23/22 07:43 Sulfa (Sulfonamide AdvReac Severe Irritable Verified 10/23/22 07:34 Antibiotics) lisinopril AdvReac Cough Verified 10/23/22 07:34 bowel prep AdvReac Severe Vomiting Uncoded 12/11/22 12:37 Review of Systems Review of Systems ROS: Yes All systems reviewed with the patient and are negative except as otherwise documented Exam Const General: cooperative HENMT Head: normal to inspection Eyes General: appearance normal, both eyes and all related structures Neck Neck: normal visual inspection Chest Chest: normal inspection of the chest Resp Effort & Inspection: normal respiratory effort Cardio Rate: regular rate GI Inspection: normal to inspection Skin General: no rashes or lesions noted Neuro General: patient alert and patient awake Extrem General: normal to inspection and no pedal edema Psych Appearance: grossly normal Assessment & Plan Assessment & Plan narrative: 67-year-old female with a history of gastric cardia hyperplastic polyps in need of removal. Repeat EGD is pursued today. Time Spent With Patient Critical Care time: I spent a total of [] minutes of critical care time on this patient's care today; this time is exclusive of procedural time.
--- NOTE | 2022-12-11 12:46 | PM.PREOP ---
Pre-operative Note Interval Note History & Physical reviewed/Exam performed by Physician: Yes Changes to H&P: No ASA Class (for procedural sedation): II
--- NOTE | 2022-12-11 13:41 | PM.OP.EGD ---
Operative Date/Time/Diagnoses Date of procedure: 12/11/22 Time of procedure: 13:41 Pre-op diagnosis: Gastric polyps Post-op diagnosis: same Procedure & Clinicians Study performed: EGD with hot snare polypectomies Same procedure as scheduled: Yes Indications: Gastric hyperplastic polyps Surgeon: Binh Moeller Procedure Notes SCOAP/Timeout: Done Procedure in detail: After the risks and benefits were explained, written and verbal informed consent was obtained. The patient was brought into the procedure room and placed into the left lateral decubitus position. Please see anesthesia notes for sedation details. The scope was introduced into the mouth through the bite block and advanced under direct visualization to the 2nd portion of the duodenum. The scope was slowly withdrawn carefully examining the mucosa for any defects or lesions. Retroflexed views were accomplished in the stomach. The stomach was decompressed, the scope was then removed from the patient who tolerated the procedure well. Sedation minutes: 20 Complications: none Impression: 1. Duodenum: The duodenal bulb appeared normal. I did not reduce all the way into D2 this time. 2. Stomach: There was a cluster of polyps again noted in the hiatal hernia sac within the gastric cardia. The previously identified cluster of polyps measuring about 1.2 cm turned out to be for completely individual polyps. All of these were removed individually with hot snare polypectomy. An additional 4 other polyps within the cardia were also removed with hot snare. These all appeared quite benign. Numerous other entirely benign polyps were noted in the gastric body which were left alone today. 3. Esophagus: The squamocolumnar junction correlated with the top of the gastric folds. Sliding hiatal hernia was again noted. No esophageal pathology appreciated throughout. Endoscopic diagnosis 1. Sliding hiatal hernia 2. Gastric polyps 3. Gastric cardia polyps Post-procedure Plan for aftercare: Await histopathology to determine the appropriate surveillance interval. Disposition: PACU
--- NOTE | 2022-12-11 14:14 | SUR.PHASEII ---
Addendum entered and electronically signed by Linn Benito R.N. 12/11/22 14:47: Dr. Solomon was notified of pt's reddened inner left eye. He assessed her at the bedside and reported that he did not see anything concerning with this pts eye. No new orders placed. Pt advised to keep cold compress to eye and to consider a moisturizing eye drop when at home later today. Original Note: Pt is c/o stinging pain to her inner left eye. Pts eye appears red. Cool cloth applied. Eye rubbing was not observed in PACU.
== END 2022-12-11 14:45 | disposition home or self-care (01) ==
PROVIDERS: Family Provider Family Medicine; PCP Internal Medicine; Referring Provider Internal Medicine Gastroenterology; Visit Provider Internal Medicine Gastroenterology
PROC: 0DJ08ZZ Inspection of Upper Intestinal Tract, Via Natural or Artificial Opening Endoscopic (ICD-10-PCS; CPT 43235; principal; 2022-12-11 13:30)
DX: K31.7 Polyp of stomach and duodenum (principal); K44.9 Diaphragmatic hernia without obstruction or gangrene
CPT/HCPCS: 43251

== ENCOUNTER → 2023-03-02 08:15 | Outpatient (CLI) | payer MEDICARE, OTHER, SELFPAY ==
--- NOTE | 2023-03-02 | DI.MG.S_ITS ---
BILATERAL DIGITAL SCREENING MAMMOGRAM 3D/2D WITH CAD: 03/02/2023 CLINICAL: Routine screening. Comparison is made to exams dated: 02/09/2022 mammogram, 02/02/2021 mammogram - , and 11/28/2018 mammogram - [facility]. Both breasts are heterogeneously dense, which may obscure small masses (category c / 51-75% glandular tissue). Current study was also evaluated with a Computer Aided Detection (CAD) system. No significant masses, calcifications, or other findings are seen in either breast. There has been no significant interval change. IMPRESSION: NEGATIVE There is no mammographic evidence of malignancy. A 1 year screening mammogram is recommended. Based on the Tyrer Cuzick model (a risk assessment model) the patient's lifetime risk is 6.9% and her 10 year risk is 3.6%. According to the ACR, ACS, and NCCN guidelines, an annual breast MRI exam along with mammogram is recommended if the patient's lifetime risk is 20% or greater. This exam was interpreted at Station ID: [id number]. NOTE: For mammograms, a report in lay terms will be sent to the patient. Approximately 15% of breast malignancies will not be visualized mammographically. In the management of a palpable breast mass, a negative mammogram must not discourage biopsy of a clinically suspicious lesion. Electronically Signed By: De bronson/kulwinder:03/02/2023 12:47:45 letter sent: Normal Exam ACR BI-RADS Category 1: Negative [id number]
== END ==
PROVIDERS: Family Provider Family Medicine; PCP Internal Medicine; Referring Provider Internal Medicine; Visit Provider Internal Medicine
DX: Z12.31 Encounter for screening mammogram for malignant neoplasm of breast (principal)
CPT/HCPCS: 77063; 77067

== ENCOUNTER → 2023-04-08 13:40 | Outpatient (CLI) | payer MEDICARE, OTHER, SELFPAY ==
--- NOTE | 2023-04-08 13:49 | DI.MRI.S_ITS ---
PROCEDURE: MR HIP LT WO CON INDICATIONS: Trochanteric bursitis, left hip TECHNIQUE: Noncontrast coronal T1 spin echo and STIR through the bony pelvis. Coronal and axial T2 fast spin echo with fat saturation, sagittal T1 spin echo, and oblique axial T2 fast spin echo with fat saturation through the hip. COMPARISON: None. FINDINGS: Image quality: Excellent. Bones and joints: Mild bilateral hip joint osteoarthritic changes are seen. No marrow edema. No intraosseous lesions or fractures. No avascular necrosis of the femoral heads. The visualized lower lumbar spine appears normally aligned. Tendons and ligaments: Distal left gluteus medius and minimus tendinosis at their insertion on greater trochanter is seen. Low-grade partial-thickness tear involving distal gluteus medius is seen. The nearby proximal iliotibial band also appears intact. The iliopsoas tendon appears intact, without adjacent bursal fluid collections or evidence for impingement syndrome. The origin of the hamstring tendon is intact at the ischial tuberosity, as well as the associated sacrotuberous ligament. The straight and reflected heads of the rectus femoris muscle origin appear intact, as well as the conjoint tendon. The ligamentum teres appears intact where visualized. Labrum and cartilage: There is subtle fraying of superior anterior labrum at 12 to 1 o'clock position suggestive of subtle superior anterior labral tear. Thinning of articulating cartilage over left femoral head is seen. The alpha angle of the femur is within normal limits at less than 55 degrees. Soft tissues: Visualized muscles demonstrate normal bulk and internal signal. Quadratus femoris muscle demonstrates no internal edema to suggest ischiofemoral impingement. The proximal sciatic neurovascular bundle appears normal adjacent to the hamstring tendons. No free pelvic fluid. Bladder wall thickness is normal. Genitourinary structures and bowel loops appear normal where visualized. IMPRESSION: 1. Mild bilateral hip joint osteoarthritis. No hip fracture or dislocation. No evidence of avascular necrosis of femoral heads. No suspicious bony lesions. 2. Tendinosis and low-grade partial-thickness tear involving distal left gluteus medius at its insertion on greater trochanter. Distal left gluteus minimus tendinosis. 3. Suggestion of subtle superior anterior left hip labral tear at 12 to 1 o'clock position. Dictated by: Destin Leyva M.D. on 04/09/2023 at 10:21 Approved by: Destin Leyva M.D. on 04/09/2023 at 11:07
== END ==
PROVIDERS: Family Provider Family Medicine; PCP Internal Medicine; Referring Provider Physical Medicine & Rehabilitation; Visit Provider Physical Medicine & Rehabilitation
DX: M70.62 Trochanteric bursitis, left hip (principal); S76.012A Strain of muscle, fascia and tendon of left hip, initial encounter; M16.0 Bilateral primary osteoarthritis of hip
CPT/HCPCS: 73721

== ENCOUNTER 2023-06-22 18:08 | Emergency (ER) | payer MEDICARE, OTHER, SELFPAY ==
[2023-06-22] VITALS (11 sets, daily range): BP systolic 127–172; BP diastolic 64–88; PULSE 74–92; RESP 12–24; TEMP 36.6; O2SAT 94–97; BMI 30.5
--- NOTE | 2023-06-22 18:21 | DI.RAD.S_ITS ---
PROCEDURE: XR CHEST 1V INDICATIONS: chest pain TECHNIQUE: One view of the chest was acquired. COMPARISON: [facility], CR, XR CHEST 1V, 08/05/2022, 19:58. [facility], CR, XR CHEST 1V, 04/19/2022, 4:23. FINDINGS: Surgical changes and devices: None. Lungs and pleura: Lungs are clear. No pleural effusions or pneumothorax. Mediastinum: Cardiac silhouette is at the upper limit of normal in size. Bones and chest wall: No suspicious bony lesions. Overlying soft tissues appear unremarkable. IMPRESSION: No acute cardiopulmonary abnormality. Dictated by: Rosalio Miller M.D. on 06/22/2023 at 18:47 Approved by: Rosalio Miller M.D. on 06/22/2023 at 18:49
[2023-06-22 18:29] LABS: Add Manual Diff / Slide Review NO; Basophils Absolute Auto 100 /uL (0-100); Eosinophils Absolute Auto 500 /uL (0-450); Eosinophils Percent Auto 6.1 % (2-4); Hematocrit 36.1 % (36-46); Hemoglobin 12.2 g/dL (12.0-16.0); Lymphocytes Absolute Auto 1300 /uL (1100-4500); Mean Corpuscular HGB Conc 33.7 % (30-36); Mean Corpuscular Hemoglobin 28.9 PG (26-34); Mean Corpuscular Volume 85.7 fL (80-100); Monocytes Absolute Auto 600 /uL (0-900); Monocytes Percent Auto 7.5 % (3-14); Neutrophils Absolute Auto 5800 /uL (1500-7000); Neutrophils Percent Auto 69.4 % (50-75); Platelet Count 356 X10^3/uL (150-400); Red Blood Cell Count 4.21 X10^6/uL (4.0-5.2); Red Cell Distribution Width 14.1 % (11.6-14.8); White Blood Cell Count 8.3 X10^3/uL (4.5-11.0)
[2023-06-22] MEDS: SODIUM CHLORIDE 0.9% 1,000 ML 150 ML IV (18:30)
[2023-06-22 18:49] LABS: Alanine Aminotransferase 26 IU/L (<35); Albumin 4.2 g/dL (3.5-5.0); Albumin Globulin Ratio 1.4 (1.0-2.8); Alkaline Phosphatase 75 U/L (38-126); Aspartate Aminotransferase 27 IU/L (14-36); BUN Creatinine Ratio 22.9 (6-22); Bilirubin Total 0.3 mg/dL (0.2-1.3); Blood Urea Nitrogen 25 mg/dL (7-17); Calcium 8.7 mg/dL (8.4-10.2); Carbon Dioxide 24 mmol/L (22-32); Chloride 100 mmol/L (98-107); Creatine Kinase 168 U/L (30-135); Estimated Glomerular Filt Rate 55 mL/min (>60); Globulin 3.1 g/dL (1.7-4.1); Glucose 101 mg/dL (80-110); HEMOLYSIS < 15 (0-50); Lipase 185 U/L (23-300); Potassium 3.8 mmol/L (3.4-5.1); Sodium 135 mmol/L (137-145); Total Protein 7.3 g/dL (6.3-8.2)
[2023-06-22 19:00] LABS: Troponin I < 0.012 ng/mL (0.01-0.034)
--- NOTE | 2023-06-22 19:22 | ED_ITS ---
HPI - Arrhythmia/Palpitations General Chief Complaint: Arrhythmia/Palpitations Stated Complaint: fluttering in chest Time Seen by Provider: 06/22/23 18:21 Source: patient Mode of arrival: Ambulatory History of Present Illness HPI narrative: 60-year-old female nonsmoker with a history of arrhythmias and an ablation 18 months ago presents with her in the chief complaint of palpitations along with shortness of breath and dizziness that started rather suddenly this afternoon. She states that she had been in her normal state of health and denies any new medications or dietary change, no changes in her dosing or medications accepts she admits that she forgot to take her diltiazem last night. She was eating a late lunch and developed rapid heart rate and palpitations and subsequently developed dizziness and shortness of breath. She presented here for evaluation. She denies any fever chills nor nausea, vomiting or diarrhea. Related Data Home Medications Medication Instructions Recorded Confirmed levothyroxine 137 mcg tablet 137 mcg PO DAILY 04/09/19 12/11/22 (Synthroid) [id number] acid 0.4 1 tab PO DAILY 04/09/19 12/11/22 mg-lycopene 300 mcg-lutein 250 mcg tablet (Centrum Silver) omeprazole 20 mg capsule,delayed 20 mg PO BID 04/09/19 12/11/22 release diltiazem HCl 120 mg capsule,24 120 mg PO DAILY 10/23/22 12/11/22 hr,extended release famotidine 20 mg tablet 20 mg PO BEDTIME 10/23/22 12/11/22 fluticasone propionate 50 2 spray intranasal DAILY PRN 10/23/22 12/11/22 mcg/actuation nasal Allergy Symptoms spray,suspension hydralazine 25 mg tablet 25 mg PO DAILY 10/23/22 12/11/22 losartan 100 1 tab PO DAILY 10/23/22 12/11/22 mg-hydrochlorothiazide 25 mg tablet methocarbamol 500 mg tablet 500 mg PO BID PRN Muscle Spasm 10/23/22 12/11/22 rosuvastatin 5 mg tablet (Crestor) 5 mg PO DAILY 10/23/22 12/11/22 azithromycin 250 mg capsule 250 mg PO DAILY 12/11/22 12/11/22 Allergies Allergy/AdvReac Type Severity Reaction Status Date / Time dexamethasone Allergy Severe Rash Verified 12/11/22 12:46 felodipine Allergy Intermediate Verified 12/11/22 12:46 Sulfa (Sulfonamide AdvReac Severe Irritable Verified 12/11/22 12:46 Antibiotics) lisinopril AdvReac Cough Verified 12/11/22 12:46 bowel prep AdvReac Severe Vomiting Uncoded 12/11/22 12:46 Review of Systems Review of Systems Narrative: GENERAL: See HPI HEENT: Denies sinus pain, ear pain, sore throat, difficulty swallowing, dizziness. RESPIRATORY: Denies dyspnea, cough, wheezing, hemoptysis, sputum. CARDIOVASCULAR: See HPI GASTROINTESTINAL: Denies nausea, vomiting, abdominal pain, diarrhea, constipation, melena. : Denies dysuria, frequency, incontinence, hematuria, urinary retention. MUSCULOSKELETAL: denies weakness, joint pain, or bony pain SKIN: Denies rash, skin lesions, or other NEUROLOGIC: Denies weakness, headache, numbness, change in speech, confusion, seizures, incoordination. PSYCHIATRIC: No concerning psychosocial issues. 12 point review of systems is negative except for those stated above Patient History Medical History Hypertension SVT (supraventricular tachycardia) Social History household members: spouse Smoking Status: Never smoker alcohol intake: current Smoking Status: Never smoker alcohol intake frequency: holidays/special occasions only Substance Use Type: does not use Exam Narrative Exam Narrative: GENERAL: [68] year old patient appears stated age. Well-developed patient, in mild distress. HEAD: Atraumatic. Normocephalic. EYES: Pupils equal round and reactive. Extraocular motions intact. No scleral icterus. No injection or drainage. ENT: Nose without bleeding, purulent drainage. Throat without erythema, tonsillar hypertrophy or exudate. Airway patent. NECK: Trachea midline. Non tender CARDIOVASCULAR: Regular rate and rhythm without murmurs, gallops, or rubs. RESPIRATORY: Clear to auscultation. Breath sounds equal bilaterally. No wheezes, rales, or rhonchi. GASTROINTESTINAL: Abdomen soft, non-tender, nondistended. EXTREMITIES: No edema or joint tenderness. BACK: Nontender without deformity or crepitance. No flank tenderness. NEURO: AOx3. SKIN: No rash or erythema of visible areas Initial Vital Signs Initial Vital Signs: Vital Signs Pulse Rate 92 H 06/22/23 18:16 Blood Pressure 172/88 H 06/22/23 18:16 Pulse Oximetry 96 06/22/23 18:16 Course Orders Ordered: ED Orders 06/22/23 18:20 Complete Blood Count AUTO DIFF Stat Comprehensive Metabolic Panel Stat Lipase Stat Troponin & CK Cardiac Panel Stat 06/22/23 18:21 XR chest 1V Stat 06/22/23 20:30 Urine Culture Stat 06/22/23 21:14 Troponin & CK Cardiac Panel Stat Sodium Chloride (Normal Saline 0.9%) 1,000 mls @ 150 mls/hr IV CONT ALE Last Admin: 06/22/23 18:30 Dose: 150 mls/hr Documented By: CTS Vital Signs Vital signs: Vital Signs - 8 hr 06/22/23 18:17 06/22/23 18:16 06/22/23 18:16 Temperature 97.8 F Pulse Rate 92 H 92 H Respiratory Rate 20 Blood Pressure 172/88 H 172/88 H Pulse Oximetry 97 96 Oxygen Delivery Method Room Air 06/22/23 18:30 06/22/23 18:30 06/22/23 19:00 Temperature Pulse Rate 90 Respiratory Rate 24 Blood Pressure 171/75 H 155/76 H Pulse Oximetry 94 Oxygen Delivery Method 06/22/23 19:00 06/22/23 19:30 06/22/23 19:30 Temperature Pulse Rate 79 75 Respiratory Rate 14 15 Blood Pressure 151/78 H Pulse Oximetry 95 97 Oxygen Delivery Method 06/22/23 20:00 06/22/23 20:00 06/22/23 20:34 Temperature Pulse Rate 74 Respiratory Rate 13 Blood Pressure 151/79 H 152/87 H Pulse Oximetry 96 Oxygen Delivery Method 06/22/23 20:34 06/22/23 21:00 06/22/23 21:00 Temperature Pulse Rate 79 80 Respiratory Rate 17 16 Blood Pressure 127/68 Pulse Oximetry 97 94 Oxygen Delivery Method 06/22/23 21:30 06/22/23 21:30 06/22/23 22:00 Temperature Pulse Rate 80 Respiratory Rate 16 Blood Pressure 145/69 H 130/64 Pulse Oximetry 94 Oxygen Delivery Method 06/22/23 22:00 Temperature Pulse Rate 84 Respiratory Rate 12 Blood Pressure Pulse Oximetry 95 Oxygen Delivery Method MDM - Arrhythmia/Palpitations Lab Data 06/22/23 18:20 06/22/23 18:20 Labs: Lab Results 06/22/23 06/22/23 06/22/23 Range/Units 18:20 18:20 21:14 WBC 8.3 (4.5-11.0) X10^3/uL RBC 4.21 (4.0-5.2) X10^6/uL Hgb 12.2 (12.0-16.0) g/dL Hct 36.1 (36-46) % MCV 85.7 (80-100) fL MCH 28.9 (26-34) PG MCHC 33.7 (30-36) % RDW 14.1 (11.6-14.8) % Plt Count 356 (150-400) X10^3/uL Neut % (Auto) 69.4 (50-75) % Lymph % (Auto) 16.0 L (25-40) % [place] % (Auto) 7.5 (3-14) % Eos % (Auto) 6.1 H (2-4) % Baso % (Auto) 1.0 (0-2) % Neut # (Auto) 5800 (4158-0970) /uL Lymph # (Auto) 1300 (0081-7683) /uL [place] # (Auto) 600 (0-900) /uL Eos # (Auto) 500 H (0-450) /uL Baso # (Auto) 100 (0-100) /uL Sodium 135 L (137-145) mmol/L Potassium 3.8 (3.4-5.1) mmol/L Chloride 100 (98-107) mmol/L Carbon Dioxide 24 (22-32) mmol/L BUN 25 H (7-17) mg/dL Creatinine 1.09 H (0.52-1.04) mg/dL Estimated GFR 55 L (>60) mL/min BUN/Creatinine Ratio 22.9 H (6-22) Glucose 101 (80-110) mg/dL Calcium 8.7 (8.4-10.2) mg/dL Total Bilirubin 0.3 (0.2-1.3) mg/dL AST 27 (14-36) IU/L ALT 26 (<35) IU/L Alkaline Phosphatase 75 (38-126) U/L Total Creatine Kinase 168 H 133 (30-135) U/L Troponin I < 0.012 < 0.012 (0.01-0.034) ng/mL Total Protein 7.3 (6.3-8.2) g/dL Albumin 4.2 (3.5-5.0) g/dL Globulin 3.1 (1.7-4.1) g/dL Albumin/Globulin Ratio 1.4 (1.0-2.8) Lipase 185 (23-300) U/L Urine Dip Bedside Urine Glucose Negative Bedside Urine Bilirubin - Negative Bedside Urine Ketone - Negative Urine Specific [place] 1.015 Bedside Urine Occult Blood + Bedside Urine pH 6.0 Bedside Urine Protein - Negative Bedside Urine Urobilinogen - Negative Bedside Urine Nitrite - Negative Bedside Urine Leukocytes - Negative Esterase MDM Narrative Medical decision making narrative: CC: 68-year-old female with palpitations, dizziness and shortness of breath Complicating co-morbidities: Age, history of atrial flutter, prior ablation Data collected from: Patient Medical records reviewed: Prior notes reviewed in our EMR Differential considered, but not limited to: AFib versus a flutter versus SVT versus other tachyarrhythmia versus electrolyte abnormality Exam documented above, pertinent findings include: Heart rate regular, lungs clear, abdomen soft Lab Test results independently reviewed as above. Pertinent findings: No significant abnormalities requiring immediate intervention Independently reviewed EKG as above Imaging studies independently reviewed: Chest x-ray demonstrates no acute abnormality Re-evaluations: Patient resting comfortably and at baseline Discussion: Patient with palpitations and associated dizziness and shortness of breath. She admits that she forgot her diltiazem last night which seems a likely contributor. She states that when her palpitations went away so did the associated symptoms. Cardiac monitoring and EKGs are unremarkable, labs show no significant abnormalities. Patient observed for 4 hours and no recurrence of symptoms. Questions answered to her apparent satisfaction, she is appropriate for discharge. She and understand and agree with the diagnosis and plan Disposition: see below, along with detailed discharge instructions that have been reviewed with patient as well as indications for ED re-evaluation and additional outpatient follow up Discharge Plan Departure Patient Disposition: Home Clinical Impression: Palpitations Instructions: Arrhythmias Activity Restrictions/Additional Instructions: *You have been diagnosed with [arrhythmia and palpitations, as we discussed your history and physical exam very reassuring as are the EKG and your lab work.] *What to do: *Please continue to take your regular medications as directed. [ *Please follow up with your primary care provider in 2-3 days, call for an appointment. Let them know you were seen in the Emergency Department and that we ask that you be seen in follow up. We will electronically transmit a record of today's note if your PCP is in our system *If you do not have a primary care provider please contact the [facility] Resource line at [phone]. They will ask some questions about your medical history and help get you set up with a doctor in the community. *Return to Emergency Department if you should have any new, worsening or concerning symptoms, such as [fever greater than 101 F, shaking chills, worsening pain, persistent vomiting or other bothersome symptoms] Prescriptions: No Action methocarbamol 500 mg tablet 500 mg PO BID PRN (Reason: Muscle Spasm) Patient Comments: 1 tablet by mouth once a day as needed hydralazine 25 mg tablet 25 mg PO DAILY Patient Comments: Take 1 tablet by mouth twice a day losartan-hydrochlorothiazide 100-25 mg tablet 1 tab PO DAILY famotidine 20 mg tablet 20 mg PO BEDTIME Patient Comments: Take 1 tablet every night diltiazem HCl 120 mg capsule,extended release 24 hr 120 mg PO DAILY Patient Comments: twice a day fluticasone propionate 50 mcg/actuation spray,suspension 2 spray INTRANASAL DAILY PRN (Reason: Allergy Symptoms) rosuvastatin [Crestor] 5 mg tablet 5 mg PO DAILY Patient Comments: every evening levothyroxine [Synthroid] 137 mcg Tablet 137 mcg PO DAILY omeprazole 20 mg Capsule,Delayed Release(Dr/Ec) 20 mg PO BID Centrum Silver 0.4-300-250 mg-mcg-mcg Tablet 1 tab PO DAILY azithromycin 250 mg Capsule 250 mg PO DAILY Referrals: Jose Manuel Winters MD [Primary Care Provider] - Stand Alone Forms: Patient Portal/API
[2023-06-22 21:29] LABS: Creatine Kinase 133 U/L (30-135)
[2023-06-22 21:42] LABS: Troponin I < 0.012 ng/mL (0.01-0.034)
== END 2023-06-22 22:48 | disposition home or self-care (01) ==
PROVIDERS: Emergency Provider Emergency Medicine; Family Provider Family Medicine; PCP Internal Medicine
DX: R00.2 Palpitations (principal); R06.02 Shortness of breath; Z79.899 Other long term (current) drug therapy
CPT/HCPCS: 36415; 71045; 80053; 81003; 82550; 83690; 84484; 85025; 87086; 93005; 93010; 99284

== ENCOUNTER → 2023-07-27 16:48 | Outpatient (CLI) | payer MEDICARE, OTHER, SELFPAY ==
--- NOTE | 2023-07-27 16:50 | DI.MRI.S_ITS ---
PROCEDURE: MR LOWER LEG RT WO CON INDICATIONS: RIGHT STRESS REACTION OF BONE/TIBIA STRESS REACTION TECHNIQUE: Noncontrast coronal and sagittal T1 spin echo and STIR; axial T1 spin echo and T2 fast spin echo with fat saturation through the right tibia/fibula. COMPARISON: [facility], CR, XR TIBIA FIBULA RIGHT, 07/18/2023, 12:28. FINDINGS: Image quality: Excellent. Bones: The visualized bone marrow demonstrates normal signal on all sequences. No definite periosteal or endosteal edema is seen. The overlying cortex appears intact. No fractures lines or intra-osseous lesions. Soft tissues: There is grade 3 fatty infiltration of the medial head of the gastrocnemius muscle. Mild focal fatty infiltration is also noted at the contralateral left medial head gastrocnemius muscle. The scanned muscles otherwise demonstrate normal overall bulk and internal signal. No soft tissue masses are present. Small right knee effusion is present. The internal structures of the knee are not well evaluated on this exam that is tailored for evaluation of the tibia and fibula. IMPRESSION: 1. No MR evidence of acute stress reaction. No acute osseous abnormality is seen. 2. Chronic fatty infiltration of the medial head of the gastrocnemius muscle, most likely related to chronic denervation changes. 3. Small nonspecific right knee effusion. Approved by: Rosalio Hernandez M.D. on 07/30/2023 at 10:36
== END ==
PROVIDERS: Family Provider Family Medicine; PCP Internal Medicine; Referring Provider Orthopaedic Surgery Foot and Ankle Surgery; Visit Provider Orthopaedic Surgery Foot and Ankle Surgery
DX: M84.30XA Stress fracture, unspecified site, initial encounter for fracture (principal); M25.40 Effusion, unspecified joint
CPT/HCPCS: 73718

== ENCOUNTER 2023-07-30 08:19 | Day surgery (SDC) | payer MEDICARE, OTHER, SELFPAY ==
--- NOTE | 2023-07-30 | PATH_ITS ---
[facility] Accession Number: [id number] No. of containers..02 Tissue . 01 Material submitted: . PART A: colon - CECUM 3 PART B: colon - ASCENDING 5 . 01 Diagnosis: A. Cecal Polyps: Tubular adenomas (3 polyps removed). . B. Ascending Colon Polyps: Tubular adenomas (5 polyps removed). [facility] 08/06/2023 1147 Local . 01 Electronically signed: . Vamsi Lott MD, PhD, Pathologist NPI- [id number] . 01 Gross description: . Part A: CECUM 3: Received in formalin is multiple fragment(s) of dolan, soft tissue measuring 0.8 x 0.4 x 0.1 cm in aggregate submitted entirely in 1 cassette(s) Part B: ASCENDING 5: Received in formalin is multiple fragment(s) of dolan, soft tissue measuring 1.5 x 1.0 x 0.2 cm in aggregate submitted entirely in 1 cassette(s) /AA 07/31/2023 0545 Local . 01 Pathologist provided ICD-10: D12.0, D12.2 . 01 CPT . 618303, [id number] Specimen Comment: A courtesy copy of this report has been sent to [phone] Performed at: 01 [facility] [address] [place] [address] [address], [place], [place] [id number] MD Song Rodrigez MD Phone: [phone]
[2023-07-30] MEDS: LACTATED RINGERS 1,000 ML 42 ML IV (08:30)
[2023-07-30 08:54] VITALS: BP 127/67; PULSE 76; RESP 21; TEMP 36.2; O2SAT 97
[2023-07-30 08:58] VITALS: BMI 30.2
[2023-07-30] MEDS: FLEETS ENEMA 1 EACH PR (09:05)
--- NOTE | 2023-07-30 09:17 | PM.HP.1 ---
History of Present Illness History of Present Illness Date Patient Seen: 07/30/23 Time Patient Seen: 09:17 Chief complaint: EGD & Screening Colonoscopy Narrative: Here for upper and lower endoscopy. Personal history of gastric polyps. Colon cancer screening. She is struggled with a bowel prep again. She took an extra Fleet's enema here in preop. REPLACED BY [facility] Medical History SVT (supraventricular tachycardia) Hypertension Social History household members: spouse Smoking Status: Never smoker alcohol intake: current Meds Home Medications and Allergies Home Medications Medication Instructions Recorded Confirmed Type levothyroxine 137 mcg tablet 137 mcg PO DAILY 04/09/19 07/30/23 History (Synthroid) vvmlbpzw-lvf-zwvtu acid 0.4 1 tab PO DAILY 04/09/19 07/30/23 History mg-lycopene 300 mcg-lutein 250 mcg tablet (Centrum Silver) omeprazole 20 mg capsule,delayed 20 mg PO BID 04/09/19 07/30/23 History release diltiazem HCl 120 mg capsule,24 120 mg PO DAILY 10/23/22 07/30/23 History hr,extended release famotidine 20 mg tablet 20 mg PO BEDTIME 10/23/22 07/30/23 History hydralazine 25 mg tablet 25 mg PO DAILY 10/23/22 07/30/23 History losartan 100 1 tab PO DAILY 10/23/22 07/30/23 History mg-hydrochlorothiazide 25 mg tablet rosuvastatin 5 mg tablet (Crestor) 5 mg PO DAILY 10/23/22 12/11/22 History Allergies Allergy/AdvReac Type Severity Reaction Status Date / Time dexamethasone Allergy Severe Rash Verified 07/30/23 08:45 felodipine Allergy Intermediate Verified 07/30/23 08:45 Sulfa (Sulfonamide AdvReac Severe Irritable Verified 07/30/23 08:45 Antibiotics) lisinopril AdvReac Cough Verified 07/30/23 08:45 bowel prep AdvReac Severe Vomiting Uncoded 07/30/23 08:45 Review of Systems Review of Systems ROS: Yes All systems reviewed with the patient and are negative except as otherwise documented Exam Vital Signs (past 8 hours): - 07/30/23 08:54 Temperature 97.1 F L Pulse Rate 76 Respiratory Rate 21 Blood Pressure 127/67 Pulse Oximetry 97 Oxygen Delivery Method Room Air Oxygen Delivery Method Room Air Const General: cooperative HENMT Head: normal to inspection Eyes General: appearance normal, both eyes and all related structures Neck Neck: normal visual inspection Chest Chest: normal inspection of the chest Resp Effort & Inspection: normal respiratory effort Cardio Rate: regular rate GI Inspection: normal to inspection Skin General: no rashes or lesions noted Neuro General: patient alert and patient awake Extrem General: normal to inspection and no pedal edema Psych Appearance: grossly normal Assessment & Plan Assessment & Plan narrative: 68-year-old female with a personal history of hyperplastic gastric polyps in need of surveillance. She is also indicated for colon cancer screening. EGD and colonoscopy are pursued today.
--- NOTE | 2023-07-30 09:18 | PM.PREOP ---
Pre-operative Note Interval Note History & Physical reviewed/Exam performed by Physician: Yes Changes to H&P: No ASA Class (for procedural sedation): II
--- NOTE | 2023-07-30 10:56 | P.OP.EGD&C_ITS ---
Operative Date/Time/Diagnoses Date of procedure: 07/30/23 Time of procedure: 10:56 Pre-op diagnosis: Personal history of gastric polyps. Colon cancer screening. Post-op diagnosis: same Procedure & Clinicians Study performed: EGD and a colonoscopy with hot snare polypectomy cold snare polypectomy and cold forceps polypectomy Same procedure as scheduled: Yes Indications: Personal history of gastric polyps. Colon cancer screening. Surgeon: Binh Moeller Procedure Notes SCOAP/Timeout: Done Procedure in detail: After the risks and benefits were explained, written and verbal informed consent was obtained. The patient was brought into the procedure room and placed into the left lateral decubitus position. Please see anesthesia notes for sedation details The scope was introduced into the mouth through the bite block and advanced under direct visualization to the 2nd portion of the duodenum. The scope was slowly withdrawn carefully examining the mucosa for any defects or lesions. Retroflexed views were accomplished in the stomach. The stomach was decompressed, the scope was then removed from the patient who tolerated the procedure well. The patient was then turned around. A digital rectal examination was accomplished. The scope was introduced into the rectum and advanced to the cecum as identified by the appendiceal orifice and ileocecal valve. The scope was slowly withdrawn to carefully examine the mucosa for any defects or lesions. Multiple direct views were made through the dentate line for exclusion of pathology. The colon was decompressed. The scope was removed from the patient who tolerated the procedure well. Pediatric colonoscope Bowel prep adequate Scope withdrawal time: 21 minutes Sedation minutes: 48 Complications: none Impression: 1. Duodenum: This was visually normal from the bulb through the 2nd portion. 2. Stomach: No residual significant polyps in the region of the cardia. No overt pathology throughout the stomach. Retroflexed views disclosed sliding hiatal hernia. 3. Esophagus: The squamocolumnar junction correlated with the top of the gastric folds. GEJ was at 36 cm from the incisors. No acute erosive changes no strictures no mass lesions. 4. Colon: In the cecum there was a 7 mm sessile polyp removed with hot snare. There were 2 other diminutive polyps removed with cold forceps. In the ascending colon there were 5 polyps seen and removed using hot snare cold snare and cold forceps. These ranged in size from 4 mm to 10 mm in greatest dimension. The patient had moderate diverticulosis in the left colon. Grade 2- 3 hemorrhoids were noted on direct views. Endoscopic diagnosis 1. Hiatal hernia 2. Otherwise visually unremarkable EGD 3. Multiple colon polyps 4. Diverticulosis 5. Grade 2-3 hemorrhoids Post-procedure Plan for aftercare: 1. Await histopathology. 2. Repeat EGD 2 years for surveillance 3. Repeat colonoscopy 3 years. Disposition: PACU
[2023-07-30 10:57] VITALS: BP 148/66; PULSE 75; RESP 16; TEMP 36.1; O2SAT 100
[2023-07-30 11:01] VITALS: BP 145/77; PULSE 70; RESP 16; O2SAT 100
[2023-07-30 11:04] VITALS: BP 146/84; PULSE 67; RESP 16; TEMP 36.7; O2SAT 100
[2023-07-30 11:20] VITALS: BP 136/62; PULSE 68; RESP 16; O2SAT 99
== END 2023-07-30 11:23 | disposition home or self-care (01) ==
PROVIDERS: Family Provider Family Medicine; PCP Internal Medicine; Referring Provider Internal Medicine Gastroenterology; Visit Provider Internal Medicine Gastroenterology
PROC: 0DJ08ZZ Inspection of Upper Intestinal Tract, Via Natural or Artificial Opening Endoscopic (ICD-10-PCS; CPT 43235; principal; 2023-07-30 09:30)
PROC: 0DJD8ZZ Inspection of Lower Intestinal Tract, Via Natural or Artificial Opening Endoscopic (ICD-10-PCS; CPT 45378; 2023-07-30 09:30)
DX: Z12.11 Encounter for screening for malignant neoplasm of colon (principal); Z87.19 Personal history of other diseases of the digestive system; K44.9 Diaphragmatic hernia without obstruction or gangrene; R19.09 Other intra-abdominal and pelvic swelling, mass and lump; K57.30 Diverticulosis of large intestine without perforation or abscess without bleeding; K64.2 Third degree hemorrhoids; D12.0 Benign neoplasm of cecum; D12.2 Benign neoplasm of ascending colon
CPT/HCPCS: 45385; 45380; 43235

== ENCOUNTER 2023-08-14 07:45 | Emergency (ER) | payer MEDICARE, OTHER, SELFPAY ==
[2023-08-14 07:45] VITALS: BP 137/78; PULSE 89; RESP 18; TEMP 36.3; O2SAT 99; BMI 30.2
[2023-08-14 10:02] VITALS: BP 131/75; PULSE 83; O2SAT 100
--- NOTE | 2023-08-14 10:28 | ED_ITS ---
HPI - Back Pain/Injury General Chief Complaint: Back Pain/Injury Stated Complaint: severe back pain/burning hard to move Time Seen by Provider: 08/14/23 09:28 Source: patient Mode of arrival: Ambulatory Limitations: no limitations History of Present Illness HPI Narrative: This is a 68-year-old with history of hypertension, dyslipidemia, atrial flutter who presents with complaint of right flank pain radiating around towards her groin. She states symptoms started abruptly this morning. Patient states no real pain in the abdomen. She denies fevers or chills. No nausea or vomiting. She does not have any radiation otherwise down her leg. No paresthesias. No chest pain, shortness of breath or syncope. She denies dysuria urgency or frequency. No hematuria. She states she is been having some issues she had a colonoscopy then got constipated took some tablets of MiraLax and has had Marry this was 2 days ago and is starting to improve but has not resolved. Patient states she has had prior hysterectomy, denies any other surgeries. Has had an ablation for her heart in the past for atrial flutter. Has allergies to dexamethasone, sulfa, lisinopril, felodipine. No tobacco, occasional alcohol, no illicit. Patient states she is had back issues in the past but not similar to this and does not remember taking or doing any her back. Related Data Home Medications Medication Instructions Recorded Confirmed levothyroxine 137 mcg tablet 137 mcg PO DAILY 04/09/19 07/30/23 (Synthroid) hvnmxtxy-dri-acedo acid 0.4 1 tab PO DAILY 04/09/19 07/30/23 mg-lycopene 300 mcg-lutein 250 mcg tablet (Centrum Silver) omeprazole 20 mg capsule,delayed 20 mg PO BID 04/09/19 07/30/23 release diltiazem HCl 120 mg capsule,24 120 mg PO DAILY 10/23/22 07/30/23 hr,extended release famotidine 20 mg tablet 20 mg PO BEDTIME 10/23/22 07/30/23 hydralazine 25 mg tablet 25 mg PO DAILY 10/23/22 07/30/23 losartan 100 1 tab PO DAILY 10/23/22 07/30/23 mg-hydrochlorothiazide 25 mg tablet rosuvastatin 5 mg tablet (Crestor) 5 mg PO DAILY 10/23/22 12/11/22 Previous Rx's Medication Instructions Recorded meloxicam 7.5 mg tablet 7.5 mg PO BID PRN pain #10 tabs 08/14/23 Allergies Allergy/AdvReac Type Severity Reaction Status Date / Time dexamethasone Allergy Severe Rash Verified 08/14/23 08:01 felodipine Allergy Intermediate Verified 08/14/23 08:01 Sulfa (Sulfonamide AdvReac Severe Irritable Verified 08/14/23 08:01 Antibiotics) lisinopril AdvReac Cough Verified 08/14/23 08:01 bowel prep AdvReac Severe Vomiting Uncoded 08/14/23 08:01 Review of Systems Review of Systems ROS Unobtainable: All systems reviewed & are unremarkable except as noted in HPI and below Patient History Medical History SVT (supraventricular tachycardia) Hypertension Social History household members: spouse Smoking Status: Never smoker alcohol intake: current Smoking Status: Never smoker alcohol intake frequency: holidays/special occasions only Substance Use Type: does not use Exam Narrative Exam Narrative: GENERAL: Alert and oriented x three, female in moderate distress. Patient has difficulty finding position uncomfortable prefers to stand rather than be seated. HEENT: Head normocephalic, atraumatic, EOMI, pupils reactive, face symmetric, moist mucous membranes NECK: Supple, full range of motion CARDIOVASCULAR: Regular rate and rhythm without murmurs, rubs or gallops. RESPIRATORY: Breath sounds equal bilaterally, no wheezes rales or rhonchi. ABDOMEN: Soft, nontender. Normoactive bowel sounds all 4 quadrants. No guarding or rebound, rigidity, no mass : Positive right CVA tenderness, no left CVA tenderness. EXTREMITIES: Normal range of motion, no clubbing or edema. Neurovascularly intact NEUROLOGICAL: Cranial nerves II through XII grossly intact. Moving all extremities SKIN: Warm, dry, no petechiae, no rashes or lesions. Initial Vital Signs Initial Vital Signs: Vital Signs Temperature 97.4 F L 08/14/23 07:45 Pulse Rate 89 08/14/23 07:45 Respiratory Rate 18 08/14/23 07:45 Blood Pressure 137/78 08/14/23 07:45 Pulse Oximetry 99 08/14/23 07:45 Oxygen Delivery Method Room Air 08/14/23 07:45 Course Orders Ordered: Discontinued Medications Ketorolac Tromethamine (Ketorolac 30 Mg/Ml Vial) 15 mg IV NOW ONE Stop: 08/14/23 10:40 Last Admin: 08/14/23 10:59 Dose: 15 mg Documented By: TEP Ondansetron HCl (Ondansetron 4 Mg Odt) 4 mg SL NOW PRN PRN Reason: Nausea And Vomiting Ondansetron HCl (Ondansetron 4 Mg/2 Ml Inj) 4 mg IV NOW PRN PRN Reason: Nausea And Vomiting Vital Signs Vital signs: Vital Signs - 8 hr 08/14/23 07:45 08/14/23 10:02 08/14/23 12:57 Temperature 97.4 F L 97.6 F Pulse Rate 89 83 75 Respiratory Rate 18 16 Blood Pressure 137/78 131/75 135/68 Pulse Oximetry 99 100 98 Oxygen Delivery Method Room Air Room Air Room Air MDM - Back Pain/Injury Lab Data 08/14/23 12:30 08/14/23 12:30 Labs: Lab Results 08/14/23 08/14/23 Range/Units 10:30 12:30 WBC 8.2 (4.5-11.0) X10^3/uL RBC 3.97 L (4.0-5.2) X10^6/uL Hgb 11.5 L (12.0-16.0) g/dL Hct 34.1 L (36-46) % MCV 85.9 (80-100) fL MCH 29.0 (26-34) PG MCHC 33.7 (30-36) % RDW 14.2 (11.6-14.8) % Plt Count 365 (150-400) X10^3/uL Neut % (Auto) 79.9 H (50-75) % Lymph % (Auto) 11.1 L (25-40) % Merrick % (Auto) 6.5 (3-14) % Eos % (Auto) 1.6 L (2-4) % Baso % (Auto) 0.9 (0-2) % Neut # (Auto) 6500 (9560-1751) /uL Lymph # (Auto) 900 L (4571-4958) /uL Merrick # (Auto) 500 (0-900) /uL Eos # (Auto) 100 (0-450) /uL Baso # (Auto) 100 (0-100) /uL Sodium 132 L (137-145) mmol/L Potassium 3.2 L (3.4-5.1) mmol/L Chloride 96 L (98-107) mmol/L Carbon Dioxide 29 (22-32) mmol/L BUN 23 H (7-17) mg/dL Creatinine 0.85 (0.52-1.04) mg/dL Estimated GFR > 60 (>60) mL/min BUN/Creatinine Ratio 27.1 H (6-22) Glucose 86 (80-110) mg/dL Calcium 8.1 L (8.4-10.2) mg/dL Total Bilirubin 0.7 (0.2-1.3) mg/dL AST 27 (14-36) IU/L ALT 33 (<35) IU/L Alkaline Phosphatase 55 (38-126) U/L Total Protein 6.5 (6.3-8.2) g/dL Albumin 3.5 (3.5-5.0) g/dL Globulin 3.0 (1.7-4.1) g/dL Albumin/Globulin Ratio 1.2 (1.0-2.8) Lipase 77 (23-300) U/L Urine RBC 0-1/hpf (0-5/HPF) Urine WBC 1-5/hpf (0-5/HPF) Ur Squamous Epith Cells 1-5 /hpf (0-5/HPF) Urine Bacteria Occasional (0-1) (None) Ur Culture Indicated? Cult not indicated Urine Dip Bedside Urine Glucose Negative Bedside Urine Bilirubin - Negative Bedside Urine Ketone - Negative Urine Specific Primrose 1.010 Bedside Urine Occult Blood - Negative Bedside Urine pH 8 Bedside Urine Protein - Negative Bedside Urine Urobilinogen - Negative Bedside Urine Nitrite - Negative Bedside Urine Leukocytes + [address] scan - abdomen/pelvis: Radiologist's Impression: [address] [address] [address] Scan Report Signed Patient: Kajal Sumner MR#: [id number] : 1955 Acct:[id number] Age/Sex: 68 / F Date of Service: 08/14/23 Loc: ED Accession Number: [id number] Procedure: CT abdomen pelvis w con Ordering Provider: Shante Street D.O. PROCEDURE: CT ABDOMEN PELVIS W CON INDICATIONS: L flank pain, ?pyelo, stone, had scope ? mass push on cecum TECHNIQUE: After the administration of intravenous contrast, axial sections acquired from the lung bases to the pubic symphysis. Coronal and sagittal reformats were performed. For radiation dose reduction, the following was used: automated exposure control, adjustment of mA and/or kV according to patient size. COMPARISON: [facility], CT, CT ANGIO CHEST ABDOMEN PELVIS, 08/06/2022, 12:24. FINDINGS: Image quality: Excellent. Lung bases: Unremarkable. Heart: No significant findings. ABDOMEN: Liver: Unremarkable. Gallbladder: Unremarkable. Biliary ducts: Unremarkable. Pancreas: Unremarkable. Spleen: Unremarkable. Adrenal Glands: Unremarkable. Kidneys and Ureters: Interval increase in size of a left peripelvic renal cyst which also post is on the parenchyma of the kidney. It previously measured 4.6 x 3.9 cm. It currently measures 5.9 x 5.3 cm. . Stomach and Bowel: Mild diverticulosis. Otherwise unremarkable. Peritoneum: No abnormal intraperitoneal fluid. No free air. Ventral Wall: No hernias. Abdominal Nodes: No retroperitoneal or mesenteric adenopathy by size criteria. Vessels: Aorta and inferior vena cava are normal in size. PELVIS: Pelvic Organs: Uterus is surgically absent. No adnexal masses identified.. Bladder: Unremarkable. Pelvic Nodes: No enlarged lymph nodes. Miscellaneous: No hernias are seen. Bones: Lumbar degenerative change. No lytic or blastic bony lesions. No compression fractures disc bulge and facet and ligament hypertrophy contribute to at least moderate canal stenosis at L3-L4. IMPRESSION: 1. Interval increase in size of a left renal peripelvic cyst. This can theoretically result in flank pain. 2. No acute abdominal process. 3. Incidental note made of at least moderate canal stenosis at L3-L4. 4. Remote hysterectomy. Dictated by: Andrey Melvin M.D. on 08/14/2023 at 12:43 Approved by: Andrey Melvin M.D. on 08/14/2023 at 12:54 MDM Narrative Medical decision making narrative: 68-year-old female presents with complaint of left flank pain radiates to the groin, does not seem to be worse with movement she does have some left CVA tenderness. Patient's vitals are appropriate she is ambulatory no acute neurologic changes or red flag symptoms for back issues. Patient's urine has leuks but no obvious blood sent for micro, patient was given Toradol, blood work CT abdomen pelvis to evaluate for kidney stone versus pyelo patient does note she had a colonoscopy fairly recently they thought there was a mass possibly or something pushing on the cecum from externally they could not visualize any masses or changes on colonoscopy. Discussed findings with patient she is much more comfortable. Reviewed all her lab work with her as well she is some mild electrolyte abnormalities. Urine does not show any obvious infection. Discussed of masses on her left flank she was tender on the right so unlikely source of pain but does need to follow-up did have some narrowing of the canal and likely has some nerve impingement causing her symptoms. Discussed return precautions. All questions answered. Discharge Plan Departure Patient Disposition: Home Clinical Impression: Cyst of left kidney, Back pain Instructions: Low Back Pain Activity Restrictions/Additional Instructions: Your imaging today does not increase in your left renal cyst, follow-up with your physician it is 5.9 x 5.3 cm it has grown in size from her prior imaging. Please follow this up with your physician to continue to monitor it. You do have some narrowing at the L3-L4 region of her spine, you could be having some coming from the nerves being pinched in that area. You can take Tylenol up to a 1000 mg every 6 hours and/or meloxicam 1 tablet every 12 hours as needed for pain. Do not take NSAIDs such as Aleve, naproxen or ibuprofen with this medication. Can take prednisone until completed. Prescription sent to [facility] in [place] Please return for rapidly worsening symptoms, new numbness, tingling weakness or loss of sensation, loss of bowel or bladder control, fevers, no abdominal pain, persistent vomiting or other new or concerning changes. Prescriptions: New meloxicam 7.5 mg tablet 7.5 mg PO BID PRN (Reason: pain) Qty: 10 0RF No Action hydralazine 25 mg tablet 25 mg PO DAILY Patient Comments: Take 1 tablet by mouth twice a day losartan-hydrochlorothiazide 100-25 mg tablet 1 tab PO DAILY famotidine 20 mg tablet 20 mg PO BEDTIME Patient Comments: Take 1 tablet every night diltiazem HCl 120 mg capsule,extended release 24 hr 120 mg PO DAILY Patient Comments: twice a day rosuvastatin [Crestor] 5 mg tablet 5 mg PO DAILY Patient Comments: every evening levothyroxine [Synthroid] 137 mcg Tablet 137 mcg PO DAILY omeprazole 20 mg Capsule,Delayed Release(Dr/Ec) 20 mg PO BID Centrum Silver 0.4-300-250 mg-mcg-mcg Tablet 1 tab PO DAILY Referrals: Jose Manuel Winters MD [Primary Care Provider] - Stand Alone Forms: Patient Portal/API
[2023-08-14] MEDS: KETOROLAC 30 MG/ML VIAL 15 MG IV (10:59)
[2023-08-14 11:03] LABS: Bacteria Urine Occasional (0-1); Culture Indicated Urine Cult Not Indicated; RBC Urine 0-1/HPF (0-5/HPF); Squamous Epithelial Cell Urine 1-5 /HPF (0-5/HPF); WBC Urine 1-5/HPF (0-5/HPF)
--- NOTE | 2023-08-14 12:14 | DI.CT.S_ITS ---
PROCEDURE: CT ABDOMEN PELVIS W CON INDICATIONS: L flank pain, ?pyelo, stone, had scope ? mass push on cecum TECHNIQUE: After the administration of intravenous contrast, axial sections acquired from the lung bases to the pubic symphysis. Coronal and sagittal reformats were performed. For radiation dose reduction, the following was used: automated exposure control, adjustment of mA and/or kV according to patient size. COMPARISON: [facility], CT, CT ANGIO CHEST ABDOMEN PELVIS, 08/06/2022, 12:24. FINDINGS: Image quality: Excellent. Lung bases: Unremarkable. Heart: No significant findings. ABDOMEN: Liver: Unremarkable. Gallbladder: Unremarkable. Biliary ducts: Unremarkable. Pancreas: Unremarkable. Spleen: Unremarkable. Adrenal Glands: Unremarkable. Kidneys and Ureters: Interval increase in size of a left peripelvic renal cyst which also post is on the parenchyma of the kidney. It previously measured 4.6 x 3.9 cm. It currently measures 5.9 x 5.3 cm. . Stomach and Bowel: Mild diverticulosis. Otherwise unremarkable. Peritoneum: No abnormal intraperitoneal fluid. No free air. Ventral Wall: No hernias. Abdominal Nodes: No retroperitoneal or mesenteric adenopathy by size criteria. Vessels: Aorta and inferior vena cava are normal in size. PELVIS: Pelvic Organs: Uterus is surgically absent. No adnexal masses identified.. Bladder: Unremarkable. Pelvic Nodes: No enlarged lymph nodes. Miscellaneous: No hernias are seen. Bones: Lumbar degenerative change. No lytic or blastic bony lesions. No compression fractures disc bulge and facet and ligament hypertrophy contribute to at least moderate canal stenosis at L3-L4. IMPRESSION: 1. Interval increase in size of a left renal peripelvic cyst. This can theoretically result in flank pain. 2. No acute abdominal process. 3. Incidental note made of at least moderate canal stenosis at L3-L4. 4. Remote hysterectomy. Dictated by: Andrey Melvin M.D. on 08/14/2023 at 12:43 Approved by: Andrey Melvin M.D. on 08/14/2023 at 12:54
[2023-08-14 12:39] LABS: Add Manual Diff / Slide Review NO; Basophils Absolute Auto 100 /uL (0-100); Basophils Percent Auto 0.9 % (0-2); Eosinophils Absolute Auto 100 /uL (0-450); Eosinophils Percent Auto 1.6 % (2-4); Hematocrit 34.1 % (36-46); Hemoglobin 11.5 g/dL (12.0-16.0); Lymphocytes Absolute Auto 900 /uL (1100-4500); Lymphocytes Percent Auto 11.1 % (25-40); Mean Corpuscular HGB Conc 33.7 % (30-36); Mean Corpuscular Volume 85.9 fL (80-100); Monocytes Absolute Auto 500 /uL (0-900); Monocytes Percent Auto 6.5 % (3-14); Neutrophils Absolute Auto 6500 /uL (1500-7000); Neutrophils Percent Auto 79.9 % (50-75); Platelet Count 365 X10^3/uL (150-400); Red Blood Cell Count 3.97 X10^6/uL (4.0-5.2); Red Cell Distribution Width 14.2 % (11.6-14.8); White Blood Cell Count 8.2 X10^3/uL (4.5-11.0)
[2023-08-14 12:50] LABS: Alanine Aminotransferase 33 IU/L (<35); Albumin 3.5 g/dL (3.5-5.0); Albumin Globulin Ratio 1.2 (1.0-2.8); Alkaline Phosphatase 55 U/L (38-126); Aspartate Aminotransferase 27 IU/L (14-36); BUN Creatinine Ratio 27.1 (6-22); Bilirubin Total 0.7 mg/dL (0.2-1.3); Blood Urea Nitrogen 23 mg/dL (7-17); Calcium 8.1 mg/dL (8.4-10.2); Carbon Dioxide 29 mmol/L (22-32); Chloride 96 mmol/L (98-107); Estimated Glomerular Filt Rate > 60 mL/min (>60); Glucose 86 mg/dL (80-110); Lipase 77 U/L (23-300); Sodium 132 mmol/L (137-145); Total Protein 6.5 g/dL (6.3-8.2)
[2023-08-14 12:52] LABS: HEMOLYSIS 52 (0-50); Potassium 3.2 mmol/L (3.4-5.1)
[2023-08-14 12:57] VITALS: BP 135/68; PULSE 75; RESP 16; TEMP 36.4; O2SAT 98
== END 2023-08-14 14:02 | disposition home or self-care (01) ==
PROVIDERS: Emergency Provider Emergency Medicine; Family Provider Family Medicine; PCP Internal Medicine
DX: N28.1 Cyst of kidney, acquired (principal); M54.9 Dorsalgia, unspecified; Z79.899 Other long term (current) drug therapy
CPT/HCPCS: 74177; 80053; 81003; 81015; 83690; 85025; 96374; 99284; J1885

== ENCOUNTER 2023-09-23 07:55 | Emergency (ER) | payer MEDICARE, OTHER, SELFPAY ==
[2023-09-23 08:04] VITALS: BP 146/86; PULSE 90; O2SAT 97
[2023-09-23 08:13] VITALS: BP 146/86; PULSE 98; RESP 16; TEMP 36.2; O2SAT 99; BMI 28.3
--- NOTE | 2023-09-23 08:15 | DI.RAD.S_ITS ---
PROCEDURE: XR CHEST 2V INDICATIONS: cough TECHNIQUE: 2 views of the chest were acquired. COMPARISON: [facility], CR, XR CHEST 1V, 06/22/2023, 18:27. FINDINGS: Surgical changes and devices: None. Lungs and pleura: Lungs are clear. No pleural effusions or pneumothorax. Mediastinum: Mediastinal contours are normal. Heart size is normal. Bones and chest wall: No suspicious bony abnormalities. Soft tissues appear unremarkable. IMPRESSION: No acute cardiopulmonary abnormality is seen. Dictated by: Kristi Gentile M.D. on 09/23/2023 at 8:42 Approved by: Kristi Gentile M.D. on 09/23/2023 at 8:42
[2023-09-23 08:34] VITALS: O2SAT 98
[2023-09-23] MEDS: ALBUTEROL/IPRATROPIUM 3 ML AMPUL INH (08:34)
[2023-09-23 08:56] LABS: Influenza A - CEPHEID Flu A NEGATIVE (NEGATIVE); Influenza B - CEPHEID Flu B NEGATIVE (NEGATIVE); Respiratory Syncytial Virus Negative (Negative)
[2023-09-23 08:57] LABS: COVID-19 CEPHEID 4-PLEX PCR Negative (Negative)
--- NOTE | 2023-09-23 09:03 | ED.URI ---
HPI - URI/Sore Throat General Chief Complaint: Upper Respiratory Symptoms Stated Complaint: cough, upper abd pain going up to chest Time Seen by Provider: 09/23/23 08:06 Source: patient and family Mode of arrival: Family Vehicle History of Present Illness HPI Narrative: Patient is a 68-year-old female history of hypertension presenting today with upper respiratory like infection. She has had cough and sore throat for about 3 days. Every time she reason she coughs. She is not coughing anything up. She denies any significant shortness of breath but feels like she is taking shallow breaths because she coughs. She is able to eat and drink. No significant chest pain or orthopnea. Related Data Home Medications Medication Instructions Recorded Confirmed levothyroxine 137 mcg tablet 137 mcg PO DAILY 04/09/19 07/30/23 (Synthroid) vzadjgpr-lrp-xamzk acid 0.4 1 tab PO DAILY 04/09/19 07/30/23 mg-lycopene 300 mcg-lutein 250 mcg tablet (Centrum Silver) omeprazole 20 mg capsule,delayed 20 mg PO BID 04/09/19 07/30/23 release diltiazem HCl 120 mg capsule,24 120 mg PO DAILY 10/23/22 07/30/23 hr,extended release famotidine 20 mg tablet 20 mg PO BEDTIME 10/23/22 07/30/23 hydralazine 25 mg tablet 25 mg PO DAILY 10/23/22 07/30/23 losartan 100 1 tab PO DAILY 10/23/22 07/30/23 mg-hydrochlorothiazide 25 mg tablet rosuvastatin 5 mg tablet (Crestor) 5 mg PO DAILY 10/23/22 12/11/22 Previous Rx's Medication Instructions Recorded meloxicam 7.5 mg tablet 7.5 mg PO BID PRN pain #10 tabs 08/14/23 hydrocodone-homatropine 5 mg-1.5 5 ml PO Q6H PRN cough #100 mL 09/23/23 mg/5 mL (5 mL) oral syrup Allergies Allergy/AdvReac Type Severity Reaction Status Date / Time dexamethasone Allergy Severe Rash Verified 08/14/23 08:01 felodipine Allergy Intermediate Verified 08/14/23 08:01 Sulfa (Sulfonamide AdvReac Severe Irritable Verified 08/14/23 08:01 Antibiotics) lisinopril AdvReac Cough Verified 08/14/23 08:01 bowel prep AdvReac Severe Vomiting Uncoded 08/14/23 08:01 Patient History Medical History SVT (supraventricular tachycardia) Hypertension Social History household members: spouse Smoking Status: Never smoker alcohol intake: current Smoking Status: Never smoker alcohol intake frequency: holidays/special occasions only Substance Use Type: does not use Exam Initial Vital Signs Initial Vital Signs: Vital Signs Pulse Rate 90 09/23/23 08:04 Blood Pressure 146/86 H 09/23/23 08:04 Pulse Oximetry 97 09/23/23 08:04 GENERAL: Alert well-appearing 68-year-old female and in no acute distress. HEENT: Head atraumatic,EOMI, pupils reactive, face symmetric, moist mucous membranes PHARYNX: Minimal erythema no exudate of tonsils no uvula swelling or deviation CARDIOVASCULAR: Regular rate and rhythm without murmurs, rubs or gallops. RESPIRATORY: Breath sounds equal bilaterally, no wheezes rales or rhonchi. Speaks in full sentences ABDOMEN: Soft, nontender. Normoactive bowel sounds all 4 quadrants. No guarding or rebound. EXTREMITIES: Normal range of motion, no clubbing or edema. Neurovascularly intact NEUROLOGICAL: Alert and oriented x4.Normal gait and speech. SKIN: Warm, dry, no laceration, no petechiae, no rashes or lesions. Course Orders Ordered: ED Orders 09/23/23 08:00 Covid-19 + FLU A/B + RSV - PCR Stat 09/23/23 08:15 Chest [XR chest 2V] Stat Discontinued Medications Albuterol/Ipratropium (Albuterol/Ipratropium 3 Ml Ampul) 3 ml INH NOW ONE Stop: 09/23/23 08:16 Last Admin: 09/23/23 08:34 Dose: 3 ml Documented By: THERESA Vital Signs Vital signs: Vital Signs - 8 hr 09/23/23 08:04 09/23/23 08:04 09/23/23 08:13 Temperature 97.1 F L Pulse Rate 90 98 H Respiratory Rate 16 Blood Pressure 146/86 H 146/86 H Pulse Oximetry 97 99 Oxygen Delivery Method Room Air Oxygen Flow Rate Fraction of Inspired Oxygen 09/23/23 08:34 09/23/23 09:52 Temperature Pulse Rate 91 H Respiratory Rate 18 Blood Pressure Pulse Oximetry 98 99 Oxygen Delivery Method Room Air Room Air Oxygen Flow Rate 0 Fraction of Inspired Oxygen 21 MDM - URI/Sore Throat Lab Data Labs: Lab Results 09/23/23 Range/Units 08:00 SARS-CoV-2 (PCR) Negative (Negative) Influenza A (RT-PCR) Flu a negative (NEGATIVE) Influenza B (RT-PCR) Flu b negative (NEGATIVE) RSV (PCR) Negative (Negative) Imaging Data Chest x-ray: Radiologist's Impression: PROCEDURE: XR CHEST 2V INDICATIONS: cough TECHNIQUE: 2 views of the chest were acquired. COMPARISON: [facility], , XR CHEST 1V, 06/22/2023, 18:27. FINDINGS: Surgical changes and devices: None. Lungs and pleura: Lungs are clear. No pleural effusions or pneumothorax. Mediastinum: Mediastinal contours are normal. Heart size is normal. Bones and chest wall: No suspicious bony abnormalities. Soft tissues appear unremarkable. IMPRESSION: No acute cardiopulmonary abnormality is seen. Dictated by: Kristi Gentile M.D. on 09/23/2023 at 8: MDM Narrative Medical decision making narrative: Patient is 68-year-old female with upper respiratory like viral symptoms for 3 days. She is not hypoxic tachycardic or febrile. Overall appears well. She was given albuterol nebulizer treatment with minimal improvement. Chest x-ray is negative. Viral panel is also negative. No need for antibiotics #65: Appropriate Treatment for Patients with URI X The patient was diagnosed with upper respiratory infection and was not prescribed or dispensed an antibiotic. [SATISFIES MIPS PERFORMANCE] [] The patient has competing comorbid condition within the last 12 months. The comorbid condition was [] (e.g., neutropenia, cystic fibrosis, chronic bronchitis, pulmonary edema, respiratory failure, rheumatoid lung disease). [MIPS PERFORMANCE EXCEPTION/EXCLUSION] [] The patient is already on antibiotics, or has taken them within the last 30 days. [MIPS PERFORMANCE EXCEPTION/EXCLUSION] [] The patient had a competing diagnosis of [] (e.g. acute otitis media, chronic sinusitis, cellulitis, UTI, etc.). [MIPS PERFORMANCE EXCEPTION/EXCLUSION] [] The patient was diagnosed with upper respiratory infection and was prescribed or dispensed an antibiotic. [DOES NOT SATISFY MIPS PERFORMANCE] Discharge Plan Departure Patient Disposition: Home Clinical Impression: Upper respiratory infection Instructions: DI for Viral Upper Respiratory Infection -- Adult Activity Restrictions/Additional Instructions: *You have been diagnosed with upper respiratory infection *What to do: At this time increase fluids as tolerated sometimes tea with honey helps sore throats. May try some allergy medicine to help dry up your nose. *Continue to take medications as directed Azcc-gsb-ocdrtdc Claritin or Kusum Hped-ger-ncbpkjr Mucinex Cough syrup 5 mL every 6 hours if needed for significant coughing *Follow up with your primary care provider in 2-3 days or call [phone] *Return to ER if you should have increasing shortness of breath not tolerating fluids or any new, worsening or concerning symptoms CONTROLLED SUBSTANCE DISCHARGE (Narcotoic/benzodiazepine/Flexeril/Phenergan) 1. You have been prescribed narcotic medications, it does have acetaminophen/Tylenol/paracetamol in it, DO NOT TAKE MORE THAN 4,00mg in 24 hours of Tylenol. TRAMADOL DOES NOT CONTAIN TYLENOL 2. Please understand that we cannot provide further refills of narcotics, benzodiazepines or controlled substances through the ED and her pain management will need to be through your provider. 3. While on these medications you cannot drive or operate heavy machinery. 4. You cannot sign legal documents or perform any duties such as this. 5. As long as you're taking opiate pain medications he should also be taking a stool softener such as Colace, Dulcolax, MiraLAX or prune juice, to help avoid constipation. Prescriptions: New hydrocodone-homatropine 5-1.5 mg/5 mL (5 mL) syrup 5 ml PO Q6H PRN (Reason: cough) Qty: 100 0RF No Action hydralazine 25 mg tablet 25 mg PO DAILY Patient Comments: Take 1 tablet by mouth twice a day losartan-hydrochlorothiazide 100-25 mg tablet 1 tab PO DAILY famotidine 20 mg tablet 20 mg PO BEDTIME Patient Comments: Take 1 tablet every night diltiazem HCl 120 mg capsule,extended release 24 hr 120 mg PO DAILY Patient Comments: twice a day rosuvastatin [Crestor] 5 mg tablet 5 mg PO DAILY Patient Comments: every evening meloxicam 7.5 mg tablet 7.5 mg PO BID PRN (Reason: pain) Qty: 10 0RF levothyroxine [Synthroid] 137 mcg Tablet 137 mcg PO DAILY omeprazole 20 mg Capsule,Delayed Release(Dr/Ec) 20 mg PO BID Centrum Silver 0.4-300-250 mg-mcg-mcg Tablet 1 tab PO DAILY Referrals: Jose Manuel Winters MD [Primary Care Provider] - Stand Alone Forms: Patient Portal/API
[2023-09-23 09:52] VITALS: PULSE 91; RESP 18; O2SAT 99
== END 2023-09-23 09:53 | disposition home or self-care (01) ==
PROVIDERS: Emergency Provider Emergency Medicine; Family Provider Family Medicine; PCP Internal Medicine
DX: J06.9 Acute upper respiratory infection, unspecified (principal); Z20.822 Contact with and (suspected) exposure to COVID-19
CPT/HCPCS: 0241U; 71046; 94640; 99283

== ENCOUNTER 2023-11-02 09:39 | Emergency (ER) | payer MEDICARE, OTHER, SELFPAY ==
--- NOTE | 2023-11-02 09:50 | ED_ITS ---
HPI - General Adult General Chief complaint: Back Pain/Injury Stated complaint: back/hip injury/pain Time Seen by Provider: 11/02/23 09:43 Source: patient Mode of arrival: Wheelchair Limitations: no limitations History of Present Illness HPI narrative: Patient is a 60-year-old female. Has had right hip issues in the past. Approximately 10 days ago she was seen by Orthopedic surgery and was told that she is hip dysplasia and will eventually need a total hip replacement. She was told to take Tylenol and ibuprofen and to do physical therapy. She is yet to start physical therapy. Approximately 3 days ago she started have worsening right hip pain and lower back pain that is radiating down into her leg. No specific trauma. No fevers. No change in urinary symptoms. No change in bowel symptoms. No fevers. Related Data Home Medications Medication Instructions Recorded Confirmed levothyroxine 137 mcg tablet 137 mcg PO DAILY 04/09/19 07/30/23 (Synthroid) [id number] acid 0.4 1 tab PO DAILY 04/09/19 07/30/23 mg-lycopene 300 mcg-lutein 250 mcg tablet (Centrum Silver) omeprazole 20 mg capsule,delayed 20 mg PO BID 04/09/19 07/30/23 release diltiazem HCl 120 mg capsule,24 120 mg PO DAILY 10/23/22 07/30/23 hr,extended release famotidine 20 mg tablet 20 mg PO BEDTIME 10/23/22 07/30/23 hydralazine 25 mg tablet 25 mg PO DAILY 10/23/22 07/30/23 losartan 100 1 tab PO DAILY 10/23/22 07/30/23 mg-hydrochlorothiazide 25 mg tablet rosuvastatin 5 mg tablet (Crestor) 5 mg PO DAILY 10/23/22 12/11/22 Previous Rx's Medication Instructions Recorded meloxicam 7.5 mg tablet 7.5 mg PO BID PRN pain #10 tabs 08/14/23 codeine 10 mg-guaifenesin 200 mg/5 5 ml PO Q6H PRN cough #100 mL 09/23/23 mL oral liquid hydrocodone-homatropine 5 mg-1.5 5 ml PO Q6H PRN cough #100 mL 09/23/23 mg/5 mL (5 mL) oral syrup cyclobenzaprine 10 mg tablet 10 mg PO TID PRN muscle spasm #21 11/02/23 tabs hydrocodone 5 mg-acetaminophen 325 1 tab PO Q4-6H PRN pain #20 tabs 11/02/23 mg tablet prednisone 20 mg tablet 20 mg PO BID 7 days #14 tabs 11/02/23 Allergies Allergy/AdvReac Type Severity Reaction Status Date / Time dexamethasone Allergy Severe Rash Verified 08/14/23 08:01 felodipine Allergy Intermediate Verified 08/14/23 08:01 Sulfa (Sulfonamide AdvReac Severe Irritable Verified 08/14/23 08:01 Antibiotics) lisinopril AdvReac Cough Verified 08/14/23 08:01 bowel prep AdvReac Severe Vomiting Uncoded 08/14/23 08:01 Review of Systems Constitutional Constitutional: Reports system reviewed and no additional complaints, except as documented Gastrointestinal Gastrointestinal: Reports system reviewed and no additional complaints, except as documented Genitourinary Genitourinary: Reports system reviewed and no additional complaints, except as documented Musculoskeletal Musculoskeletal: Reports system reviewed and no additional complaints, except as documented Integumentary/Breasts Skin/Breast: Reports system reviewed and no additional complaints, except as documented Neurologic Neurologic: Reports system reviewed and no additional complaints, except as documented Patient History Medical History SVT (supraventricular tachycardia) Hypertension Social History household members: spouse Smoking Status: Never smoker alcohol intake: current Smoking Status: Never smoker alcohol intake frequency: holidays/special occasions only Substance Use Type: does not use Exam Initial Vital Signs Initial Vital Signs: Vital Signs Temperature 97.0 F L 11/02/23 10:00 Pulse Rate 97 H 11/02/23 10:00 Respiratory Rate 18 11/02/23 10:00 Blood Pressure 145/86 H 11/02/23 10:00 Pulse Oximetry 98 11/02/23 10:00 Oxygen Delivery Method Room Air 11/02/23 10:00 Resp Effort & Inspection: normal respiratory effort Cardio Rate: regular rate Back/Spine/Pelvis Other: Patient does have discomfort along the right SI joint in the right buttocks and laterally on the right hip. Skin General: no rashes or lesions noted Neuro Sensory Exam: no sensory deficits noted Extrem Other: Discomfort with palpation along the lateral hip. Right knee and right ankle unremarkable. Course Orders Ordered: ED Orders 11/02/23 10:16 Urine Microscopic Stat 11/02/23 10:19 XR hip w pel if done RT 2V Stat XR lumbar spine 2-3V Stat 11/02/23 11:23 Urine Culture Stat Discontinued Medications Hydromorphone HCl (Hydromorphone 1 Mg Inj) 1 mg IM NOW ONE Stop: 11/02/23 10:20 Last Admin: 11/02/23 10:55 Dose: 1 mg Documented By: KEVIN Ketorolac Tromethamine (Ketorolac 30 Mg/Ml Vial) 30 mg IM NOW ONE Stop: 11/02/23 10:20 Last Admin: 11/02/23 10:56 Dose: 30 mg Documented By: KEVIN Vital Signs Vital signs: Vital Signs - 8 hr 11/02/23 10:00 Temperature 97.0 F L Pulse Rate 97 H Respiratory Rate 18 Blood Pressure 145/86 H Pulse Oximetry 98 Oxygen Delivery Method Room Air Medical Decision Making Lab Data Lab results reviewed: Yes I reviewed the patient's lab results. Labs: Lab Results 11/02/23 Range/Units 10:16 Urine RBC 0-1/hpf (0-5/HPF) Urine WBC 5-10/hpf H (0-5/HPF) Ur Squamous Epith Cells 5-10 /hpf H (0-5/HPF) Urine Bacteria None seen (None) Ur Culture Indicated? Cult not indicated Vol Urine Centrifuged 10ml (spun) Urine Dip Bedside Urine Glucose Negative Bedside Urine Bilirubin - Negative Bedside Urine Ketone - Negative Urine Specific [place] 1.010 Bedside Urine Occult Blood +/- Bedside Urine pH 8.0 Bedside Urine Protein - Negative Bedside Urine Urobilinogen - Negative Bedside Urine Nitrite - Negative Bedside Urine Leukocytes ++ 125 Esterase Point of care testing: Urine Dip Bedside Urine Glucose Negative Bedside Urine Bilirubin - Negative Bedside Urine Ketone - Negative Urine Specific [place] 1.010 Bedside Urine Occult Blood +/- Bedside Urine pH 8.0 Bedside Urine Protein - Negative Bedside Urine Urobilinogen - Negative Bedside Urine Nitrite - Negative Bedside Urine Leukocytes ++ 125 Esterase Imaging Data XR hip: Radiologist's Impression: PROCEDURE: XR HIP W PEL IF DONE RT 2V INDICATIONS: R hip pain TECHNIQUE: AP pelvis with lateral view(s) of the right hip(s). COMPARISON: [facility], CR, XR PELVIS WITH BILATERAL LATERAL HIPS, 10/10/2023, 9:11. [facility], CT, CT ABDOMEN PELVIS W CON, 08/14/2023, 12:14. FINDINGS: Bones: No fractures or dislocations. Minimal degenerative change. Pelvic ring appears intact. No suspicious bony lesions. Soft tissues: The visualized bowel gas pattern is normal. No suspicious soft tissue calcifications. IMPRESSION: Minimal right hip DJD. XR lumbar: Radiologist's Impression: PROCEDURE: XR LUMBAR SPINE 2-3V INDICATIONS: LBP TECHNIQUE: 3 views of the lumbar spine were acquired. COMPARISON: [facility], CT, CT ABDOMEN PELVIS W CON, 08/14/2023, 12:14. FINDINGS: Bones: 5 [id number] vertebrae are present. There is normal bony alignment. Disc space height loss at L5-S1 and T11-T12. Vertebral body osteophytes. No vertebral body compression fractures. No suspicious bony lesions. Soft tissues: Overlying bowel gas pattern is normal. No suspicious soft tissue calcifications. IMPRESSION: Moderate to severe degenerative changes in the lumbar spine most pronounced at T11-T12 and L5-S1. Overall findings are similar. No compression fracture. MDM Narrative Medical decision making narrative: Low suspicion for cauda equina. X-ray shows no signs of fracture. No specific trauma that started her symptoms 3 days ago. Symptomatic treatment for now. She has had issues with steroids in the past so instead of a Medrol Dosepak we will send her home on prednisone that she can stop at any point if needed. She was given return precautions. She expressed understanding and agreement. Discharge Plan Departure Patient Disposition: Home Clinical Impression: Acute back pain with radiculopathy Instructions: DI for Low Back Pain Activity Restrictions/Additional Instructions: I do recommend that you try to stay as active as possible. You can continue with the conservative measures that you have been already doing at home. Keep all of your scheduled medical appointments. Return to the emergency department for new symptoms. Prescriptions: New hydrocodone-acetaminophen 5-325 mg tablet 1 tab PO Q4-6H PRN (Reason: pain) Qty: 20 0RF cyclobenzaprine 10 mg tablet 10 mg PO TID PRN (Reason: muscle spasm) Qty: 21 0RF prednisone 20 mg tablet 20 mg PO BID 7 Days Qty: 14 0RF No Action hydralazine 25 mg tablet 25 mg PO DAILY Patient Comments: Take 1 tablet by mouth twice a day losartan-hydrochlorothiazide 100-25 mg tablet 1 tab PO DAILY famotidine 20 mg tablet 20 mg PO BEDTIME Patient Comments: Take 1 tablet every night diltiazem HCl 120 mg capsule,extended release 24 hr 120 mg PO DAILY Patient Comments: twice a day rosuvastatin [Crestor] 5 mg tablet 5 mg PO DAILY Patient Comments: every evening meloxicam 7.5 mg tablet 7.5 mg PO BID PRN (Reason: pain) Qty: 10 0RF levothyroxine [Synthroid] 137 mcg Tablet 137 mcg PO DAILY omeprazole 20 mg Capsule,Delayed Release(Dr/Ec) 20 mg PO BID Centrum Silver 0.4-300-250 mg-mcg-mcg Tablet 1 tab PO DAILY hydrocodone-homatropine 5-1.5 mg/5 mL (5 mL) syrup 5 ml PO Q6H PRN (Reason: cough) Qty: 100 0RF codeine-guaifenesin 10-200 mg/5 mL liquid 5 ml PO Q6H PRN (Reason: cough) Qty: 100 0RF Referrals: Jose Manuel Winters MD [Primary Care Provider] - Stand Alone Forms: Patient Portal/API
[2023-11-02 10:00] VITALS: BP 145/86; PULSE 97; RESP 18; TEMP 36.1; O2SAT 98
--- NOTE | 2023-11-02 10:18 | PC.NURSE ---
Pt reports that she was seen by ortho this week and was told she eventually needed to have a hip replacement due to hip dysplasia. Pt came to the ED today because she has been having ongoing and worsening pain and numbness in her right lower extremity and lower back. Pt describes pain as tingling and numbness that radiates from her lower back and groin down her right leg. 10/10 pain. Pt denies any loss of bladder or bowel control. Pt states that she cannot find any comfortable position and nothing that she does brings her relief. Pt has been taking Tylenol and ibuprofen for pain, as instructed by the orthopedic surgeon and has not gotten any relief. Pt a&ox4.
--- NOTE | 2023-11-02 10:19 | DI.RAD.S_ITS ---
PROCEDURE: XR LUMBAR SPINE 2-3V INDICATIONS: LBP TECHNIQUE: 3 views of the lumbar spine were acquired. COMPARISON: [facility], CT, CT ABDOMEN PELVIS W CON, 08/14/2023, 12:14. FINDINGS: Bones: 5 [id number] vertebrae are present. There is normal bony alignment. Disc space height loss at L5-S1 and T11-T12. Vertebral body osteophytes. No vertebral body compression fractures. No suspicious bony lesions. Soft tissues: Overlying bowel gas pattern is normal. No suspicious soft tissue calcifications. IMPRESSION: Moderate to severe degenerative changes in the lumbar spine most pronounced at T11-T12 and L5-S1. Overall findings are similar. No compression fracture. Dictated by: Allan Herrera M.D. on 11/02/2023 at 11:26 Approved by: Allan Herrera M.D. on 11/02/2023 at 11:28
--- NOTE | 2023-11-02 10:19 | DI.RAD.S_ITS ---
PROCEDURE: XR HIP W PEL IF DONE RT 2V INDICATIONS: R hip pain TECHNIQUE: AP pelvis with lateral view(s) of the right hip(s). COMPARISON: [facility], CR, XR PELVIS WITH BILATERAL LATERAL HIPS, 10/10/2023, 9:11. [facility], CT, CT ABDOMEN PELVIS W CON, 08/14/2023, 12:14. FINDINGS: Bones: No fractures or dislocations. Minimal degenerative change. Pelvic ring appears intact. No suspicious bony lesions. Soft tissues: The visualized bowel gas pattern is normal. No suspicious soft tissue calcifications. IMPRESSION: Minimal right hip DJD. Dictated by: Allan Herrera M.D. on 11/02/2023 at 11:24 Approved by: Allan Herrera M.D. on 11/02/2023 at 11:26
[2023-11-02 10:34] LABS: Urine Volume 10mL (spun)
[2023-11-02] MEDS: HYDROMORPHONE 1 MG INJ IM (10:55)
[2023-11-02] MEDS: KETOROLAC 30 MG/ML VIAL IM (10:56)
[2023-11-02 11:04] LABS: Bacteria Urine None Seen; WBC Urine 5-10/HPF (0-5/HPF)
[2023-11-02 11:05] LABS: Culture Indicated Urine Cult Not Indicated; RBC Urine 0-1/HPF (0-5/HPF); Squamous Epithelial Cell Urine 5-10 /HPF (0-5/HPF)
--- NOTE | 2023-11-02 11:27 | PC.NURSE ---
Pt reports significant relief of pain and now rates pain as 5/10 after medication. Pt denies any nausea.
[2023-11-02 12:02] VITALS: BP 150/73; PULSE 74; RESP 20; TEMP 36.9; O2SAT 98
== END 2023-11-02 12:04 | disposition home or self-care (01) ==
PROVIDERS: Emergency Provider Emergency Medicine; Family Provider Family Medicine; PCP Internal Medicine
DX: M54.9 Dorsalgia, unspecified (principal); M54.16 Radiculopathy, lumbar region
CPT/HCPCS: 72100; 73502; 81003; 81015; 87086; 96372; 99284; J1170; J1885

== ENCOUNTER → 2023-11-06 16:01 | Outpatient (CLI) | payer MEDICARE, OTHER, SELFPAY ==
--- NOTE | 2023-11-06 | DI.MRI.S_ITS ---
PROCEDURE: MR HIP RT WO CON INDICATIONS: OSTEOARTHRITIS RIGHT HIP TECHNIQUE: Noncontrast coronal T1 spin echo and STIR through the bony pelvis. Coronal and axial T2 fast spin echo with fat saturation, sagittal T1 spin echo, and oblique axial T2 fast spin echo with fat saturation through the hip. COMPARISON: [facility], MR, MR HIP LT WO CON, 04/08/2023, 13:47. FINDINGS: Image quality: Excellent. Bones and joints: [id number]-lt-[id number] bilateral hip joint osteoarthritic changes are seen with superior joint space narrowing, subchondral sclerosis and small lateral marginal osteophyte formation slightly worse on the right side. No marrow edema. No intraosseous lesions or fractures. No avascular necrosis of the femoral heads. The visualized lower lumbar spine appears normally aligned. Tendons and ligaments: Tendinosis and low-grade partial-thickness tear involving distal gluteus medius tendon at its insertion on greater trochanter is seen extending to musculotendinous junction. Distal right gluteus minimus tendinosis is also noted. The nearby proximal iliotibial band also appears intact. The iliopsoas tendon appears intact, without adjacent bursal fluid collections or evidence for impingement syndrome. Tendinosis involving right hamstring tendon origins at ischial tuberosity is seen. Labrum and cartilage: Subtle fraying of superior anterior labrum with T2 hyperintense signal at 12 to 1 o'clock position is seen concerning for very subtle superior anterior right hip labral tear. Cartilage surface of the femoral head appears thinned. thickness. The alpha angle of the femur is within normal limits at less than 55 degrees. Soft tissues: Mild edema involving posterior and medial portion of obturator externus muscle is noted at the level of ischial tuberosity. Rest of the visualized muscles demonstrate normal bulk and internal signal. Quadratus femoris muscle demonstrates no internal edema to suggest ischiofemoral impingement. The proximal sciatic neurovascular bundle appears normal adjacent to the hamstring tendons. No free pelvic fluid. Bladder wall thickness is normal. Genitourinary structures and bowel loops appear normal where visualized. IMPRESSION: 1. Qyzj-nx-ketqibte bilateral hip joint osteoarthritis slightly worse on the right side. No pelvic or hip fracture. No evidence of avascular necrosis. 2. Low-grade partial-thickness tear involving distal gluteus medius tendon at its insertion on greater trochanter extending to musculotendinous junction. Distal right gluteus minimus tendinosis. Tendinosis involving right hamstring tendon origins at ischial tuberosity. Suggestion of strain/very low-grade intrasubstance partial-thickness tear involving posterior portion of the medial right obturator externus muscle. No other muscle or tendon signal abnormalities. 3. Finding may represent very subtle superior anterior right hip labral tear at 12 to 1 o'clock position. Dictated by: Destin Leyva M.D. on 11/07/2023 at 9:35 Approved by: Destin Leyva M.D. on 11/07/2023 at 9:38
== END ==
LOC: MRI 16:03
PROVIDERS: Family Provider Family Medicine; PCP Internal Medicine; Referring Provider Orthopaedic Surgery Adult Reconstructive Orthopaedic Surgery; Visit Provider Orthopaedic Surgery Adult Reconstructive Orthopaedic Surgery
DX: M16.0 Bilateral primary osteoarthritis of hip (principal); S76.011A Strain of muscle, fascia and tendon of right hip, initial encounter
CPT/HCPCS: 73721

== ENCOUNTER 2023-11-11 08:19 | Emergency (ER) | payer MEDICARE, OTHER, SELFPAY ==
[2023-11-11 08:27] VITALS: BP 155/98; PULSE 93; RESP 18; TEMP 36.7; O2SAT 97
[2023-11-11] MEDS: HYDROMORPHONE 1 MG INJ IM (08:41)
--- NOTE | 2023-11-11 08:42 | ED.BACK ---
HPI - Back Pain/Injury General Chief Complaint: Back Pain/Injury Stated Complaint: L/ back and R/Leg pain Time Seen by Provider: 11/11/23 08:27 Source: patient Mode of arrival: Ambulatory History of Present Illness HPI Narrative: Patient is a 60-year-old female. I evaluated her here in the emergency department last week for low back pain and right-sided radiculopathy. She was currently on anti-inflammatories, muscle relaxers and steroids. She did see an orthopedic surgeon on Sunday of last week who recommended an urgent MRI. She is here because of continued back discomfort. No improvement of symptoms with current treatment. No urinary symptoms or change in bowel habits or fevers. Related Data Home Medications Medication Instructions Recorded Confirmed levothyroxine 137 mcg tablet 137 mcg PO DAILY 04/09/19 07/30/23 (Synthroid) [id number] acid 0.4 1 tab PO DAILY 04/09/19 07/30/23 mg-lycopene 300 mcg-lutein 250 mcg tablet (Centrum Silver) omeprazole 20 mg capsule,delayed 20 mg PO BID 04/09/19 07/30/23 release diltiazem HCl 120 mg capsule,24 120 mg PO DAILY 10/23/22 07/30/23 hr,extended release famotidine 20 mg tablet 20 mg PO BEDTIME 10/23/22 07/30/23 hydralazine 25 mg tablet 25 mg PO DAILY 10/23/22 07/30/23 losartan 100 1 tab PO DAILY 10/23/22 07/30/23 mg-hydrochlorothiazide 25 mg tablet rosuvastatin 5 mg tablet (Crestor) 5 mg PO DAILY 10/23/22 12/11/22 Previous Rx's Medication Instructions Recorded meloxicam 7.5 mg tablet 7.5 mg PO BID PRN pain #10 tabs 08/14/23 codeine 10 mg-guaifenesin 200 mg/5 5 ml PO Q6H PRN cough #100 mL 09/23/23 mL oral liquid hydrocodone-homatropine 5 mg-1.5 5 ml PO Q6H PRN cough #100 mL 09/23/23 mg/5 mL (5 mL) oral syrup cyclobenzaprine 10 mg tablet 10 mg PO TID PRN muscle spasm #21 11/02/23 tabs hydrocodone 5 mg-acetaminophen 325 1 tab PO Q4-6H PRN pain #20 tabs 11/02/23 mg tablet hydrocodone 5 mg-acetaminophen 325 1 tab PO Q4-6H PRN pain #20 tabs 11/11/23 mg tablet Allergies Allergy/AdvReac Type Severity Reaction Status Date / Time dexamethasone Allergy Severe Rash Verified 08/14/23 08:01 felodipine Allergy Intermediate Verified 08/14/23 08:01 Sulfa (Sulfonamide AdvReac Severe Irritable Verified 08/14/23 08:01 Antibiotics) lisinopril AdvReac Cough Verified 08/14/23 08:01 bowel prep AdvReac Severe Vomiting Uncoded 08/14/23 08:01 Review of Systems Constitutional Constitutional: Reports system reviewed and no additional complaints, except as documented Musculoskeletal Musculoskeletal: Reports system reviewed and no additional complaints, except as documented Integumentary/Breasts Skin/Breast: Reports system reviewed and no additional complaints, except as documented Neurologic Neurologic: Reports system reviewed and no additional complaints, except as documented Patient History Medical History SVT (supraventricular tachycardia) Hypertension Social History household members: spouse Smoking Status: Never smoker alcohol intake: current Smoking Status: Never smoker alcohol intake frequency: holidays/special occasions only Substance Use Type: does not use Exam Initial Vital Signs Initial Vital Signs: Vital Signs Temperature 98.0 F 11/11/23 08:27 Pulse Rate 93 H 11/11/23 08:27 Respiratory Rate 18 11/11/23 08:27 Blood Pressure 155/98 H 11/11/23 08:27 Pulse Oximetry 97 11/11/23 08:27 Oxygen Delivery Method Room Air 11/11/23 08:27 Resp Effort & Inspection: normal respiratory effort Cardio Rate: tachycardic Back/Spine/Pelvis Other: Right-sided back discomfort with right-sided radiculopathy Neuro Other: Numbness and tingling to right leg Course Orders Ordered: ED Orders 11/11/23 09:07 MR lumbar spine wo con Stat Discontinued Medications Hydromorphone HCl (Hydromorphone 1 Mg Inj) 1 mg IM NOW ONE Stop: 11/11/23 08:34 Last Admin: 11/11/23 08:41 Dose: 1 mg Documented By: ALEKSANDR Vital Signs Vital signs: Vital Signs - 8 hr 11/11/23 08:27 11/11/23 08:57 11/11/23 10:26 Temperature 98.0 F Pulse Rate 93 H 89 79 Respiratory Rate 18 18 18 Blood Pressure 155/98 H 140/78 Pulse Oximetry 97 98 98 Oxygen Delivery Method Room Air Room Air Room Air MDM - Back Pain/Injury Imaging Data Lumbar MRI: Radiologist's Impression: PROCEDURE: MR LUMBAR SPINE WO CON INDICATIONS: LBP with R sided radiculopathy TECHNIQUE: Noncontrast sagittal T1 spin echo and T2 fast echo, sagittal STIR, and T2 fast spin echo through the lumbar spine. In cases with scoliosis, additional coronal T2 fast spin echo may be performed. COMPARISON: [facility], MR, MR LUMBAR SPINE WITHOUT CONTRAST, 09/03/2019, 9:27. [facility], CT, CT ABDOMEN PELVIS W CON, 08/14/2023, 12:14. [facility], MR, MR LUMBAR SPINE WITHOUT CONTRAST, 03/15/2018, 8:21. [facility], MR, MR LUMBAR SPINE WO CON, 03/18/2022, 9:04. [facility], CR, XR LUMBAR SPINE 2-3V, 11/02/2023, 10:22. FINDINGS: Image quality: Excellent. Alignment and Curvature: Mild dextroconvex scoliotic curvature is seen. Mild retrolisthesis can be seen at the L5-S1 level. Bone Marrow: Marrow is of normal overall signal. No acute vertebral body compression fractures. Spinal Cord: Conus medullaris terminates at the L1 level. Visualized cord demonstrates normal signal and size. Paraspinous Soft Tissues: No paravertebral masses. A 6 cm left renal cyst can be seen, which has grown over time. T11-T12: At least moderate loss of disc height and disc signal can be seen. Reactive marrow endplate changes are seen, which are hyperintense on T1-weighted and T2-weighted imaging and most consistent with fatty metaplasia (Modic type II changes). Mild to moderate disc bulge is seen. Mild facet joint hypertrophy is seen. There is mild right-sided and no left-sided neural foraminal narrowing. Minimal central canal narrowing is seen. T12-L1: Normal appearance. L1-L2: Normal appearance. L2-L3: The disc height and disk signal are relatively well-preserved. Mild disc bulge is seen, which is eccentric to the right. Mild to moderate facet hypertrophy is seen. No significant neural foraminal or central canal narrowing can be seen. When comparison is made with the prior images, these findings are similar. L3-L4: The disc height and disk signal are relatively well-preserved. Moderate generalized disc bulge is seen. There is a superimposed central disc protrusion. There is a focal annular fissure seen posteriorly. At least moderate facet hypertrophy is seen. Associated hypertrophy of the ligamentum flavum can be seen. Mild bilateral neural foraminal narrowing can be seen, left worse than right. Moderate central canal narrowing is seen. These imaging findings have progressed compared to the prior study. L4-L5: The disc height is well-preserved. Loss of disc signal is seen at this level. Mild generalized disc bulge is seen. There is a focal annular fissure seen posteriorly. Moderate facet joint hypertrophy is seen. Minimal bilateral neural foraminal narrowing can be seen. Mild central canal narrowing is seen. When comparison is made with the prior images, these findings are similar. L5-S1: At least moderate loss of disc height and disc signal can be seen. Reactive marrow endplate changes are seen which are hypointense on T1-weighted imaging and hyperintense on T2 weighted imaging, which is most consistent with edema (Modic type I changes). Moderate generalized disc bulge is seen, which is eccentric to the left. There is a superimposed central disc protrusion. There is a focal annular fissure seen posteriorly. Mild to moderate facet hypertrophy is seen. Moderate bilateral neural foraminal narrowing is seen. No significant central canal narrowing is seen. These degenerative changes are slightly progressed compared to 202. IMPRESSION: Lumbar spine degenerative changes are seen, which are progressed at L3-L4 and L5-S1 compared to the prior MRI. MDM Narrative Medical decision making narrative: Patient states she is having improvement of symptoms with pain medication here in the ER. MRI of the lumbar spine today shows multilevel degenerative disc disease but no signs of an acute surgical process. No indication for admission to the hospital. She has an appointment with physical therapy later this week. An appointment to have steroid injections in approximately 10 days. There was a plan with her orthopedic surgeon with regard to treatment. I will refill her pain medication and she understands this should be use very sparingly. She was given return precautions. She expressed understanding and agreement. Discharge Plan Departure Patient Disposition: Home Clinical Impression: Acute back pain with radiculopathy Instructions: DI for Degenerative Disc Disease Activity Restrictions/Additional Instructions: Recommend that you continue to take all of your medications as directed and keep all of your scheduled medical appointments. Return to the emergency department for new or worsening symptoms. Prescriptions: New hydrocodone-acetaminophen 5-325 mg tablet 1 tab PO Q4-6H PRN (Reason: pain) Qty: 20 0RF No Action hydralazine 25 mg tablet 25 mg PO DAILY Patient Comments: Take 1 tablet by mouth twice a day losartan-hydrochlorothiazide 100-25 mg tablet 1 tab PO DAILY famotidine 20 mg tablet 20 mg PO BEDTIME Patient Comments: Take 1 tablet every night diltiazem HCl 120 mg capsule,extended release 24 hr 120 mg PO DAILY Patient Comments: twice a day rosuvastatin [Crestor] 5 mg tablet 5 mg PO DAILY Patient Comments: every evening meloxicam 7.5 mg tablet 7.5 mg PO BID PRN (Reason: pain) Qty: 10 0RF levothyroxine [Synthroid] 137 mcg Tablet 137 mcg PO DAILY omeprazole 20 mg Capsule,Delayed Release(Dr/Ec) 20 mg PO BID Centrum Silver 0.4-300-250 mg-mcg-mcg Tablet 1 tab PO DAILY hydrocodone-homatropine 5-1.5 mg/5 mL (5 mL) syrup 5 ml PO Q6H PRN (Reason: cough) Qty: 100 0RF codeine-guaifenesin 10-200 mg/5 mL liquid 5 ml PO Q6H PRN (Reason: cough) Qty: 100 0RF hydrocodone-acetaminophen 5-325 mg tablet 1 tab PO Q4-6H PRN (Reason: pain) Qty: 20 0RF cyclobenzaprine 10 mg tablet 10 mg PO TID PRN (Reason: muscle spasm) Qty: 21 0RF Referrals: Jose Manuel Winters MD [Primary Care Provider] - Stand Alone Forms: Patient Portal/API
[2023-11-11 08:57] VITALS: PULSE 89; RESP 18; O2SAT 98
--- NOTE | 2023-11-11 09:07 | DI.MRI.S_ITS ---
PROCEDURE: MR LUMBAR SPINE WO CON INDICATIONS: LBP with R sided radiculopathy TECHNIQUE: Noncontrast sagittal T1 spin echo and T2 fast echo, sagittal STIR, and T2 fast spin echo through the lumbar spine. In cases with scoliosis, additional coronal T2 fast spin echo may be performed. COMPARISON: [facility], MR, MR LUMBAR SPINE WITHOUT CONTRAST, 09/03/2019, 9:27. [facility], CT, CT ABDOMEN PELVIS W CON, 08/14/2023, 12:14. [facility], MR, MR LUMBAR SPINE WITHOUT CONTRAST, 03/15/2018, 8:21. [facility], MR, MR LUMBAR SPINE WO CON, 03/18/2022, 9:04. [facility], CR, XR LUMBAR SPINE 2-3V, 11/02/2023, 10:22. FINDINGS: Image quality: Excellent. Alignment and Curvature: Mild dextroconvex scoliotic curvature is seen. Mild retrolisthesis can be seen at the L5-S1 level. Bone Marrow: Marrow is of normal overall signal. No acute vertebral body compression fractures. Spinal Cord: Conus medullaris terminates at the L1 level. Visualized cord demonstrates normal signal and size. Paraspinous Soft Tissues: No paravertebral masses. A 6 cm left renal cyst can be seen, which has grown over time. T11-T12: At least moderate loss of disc height and disc signal can be seen. Reactive marrow endplate changes are seen, which are hyperintense on T1-weighted and T2-weighted imaging and most consistent with fatty metaplasia (Modic type II changes). Mild to moderate disc bulge is seen. Mild facet joint hypertrophy is seen. There is mild right-sided and no left-sided neural foraminal narrowing. Minimal central canal narrowing is seen. T12-L1: Normal appearance. L1-L2: Normal appearance. L2-L3: The disc height and disk signal are relatively well-preserved. Mild disc bulge is seen, which is eccentric to the right. Mild to moderate facet hypertrophy is seen. No significant neural foraminal or central canal narrowing can be seen. When comparison is made with the prior images, these findings are similar. L3-L4: The disc height and disk signal are relatively well-preserved. Moderate generalized disc bulge is seen. There is a superimposed central disc protrusion. There is a focal annular fissure seen posteriorly. At least moderate facet hypertrophy is seen. Associated hypertrophy of the ligamentum flavum can be seen. Mild bilateral neural foraminal narrowing can be seen, left worse than right. Moderate central canal narrowing is seen. These imaging findings have progressed compared to the prior study. L4-L5: The disc height is well-preserved. Loss of disc signal is seen at this level. Mild generalized disc bulge is seen. There is a focal annular fissure seen posteriorly. Moderate facet joint hypertrophy is seen. Minimal bilateral neural foraminal narrowing can be seen. Mild central canal narrowing is seen. When comparison is made with the prior images, these findings are similar. L5-S1: At least moderate loss of disc height and disc signal can be seen. Reactive marrow endplate changes are seen which are hypointense on T1-weighted imaging and hyperintense on T2 weighted imaging, which is most consistent with edema (Modic type I changes). Moderate generalized disc bulge is seen, which is eccentric to the left. There is a superimposed central disc protrusion. There is a focal annular fissure seen posteriorly. Mild to moderate facet hypertrophy is seen. Moderate bilateral neural foraminal narrowing is seen. No significant central canal narrowing is seen. These degenerative changes are slightly progressed compared to 2022. IMPRESSION: Lumbar spine degenerative changes are seen, which are progressed at L3-L4 and L5-S1 compared to the prior MRI. Dictated by: Jean Johnson M.D. on 11/11/2023 at 8:41 Approved by: Jean Johnson M.D. on 11/11/2023 at 8:48
[2023-11-11 10:26] VITALS: BP 140/78; PULSE 79; RESP 18; O2SAT 98
== END 2023-11-11 10:46 | disposition home or self-care (01) ==
PROVIDERS: Emergency Provider Emergency Medicine; Family Provider Family Medicine; PCP Internal Medicine
DX: M54.16 Radiculopathy, lumbar region (principal)
CPT/HCPCS: 72148; 96372; 99283; 99284; J1170

== ENCOUNTER 2023-11-15 05:38 | Emergency (ER) | payer MEDICARE, OTHER, SELFPAY ==
[2023-11-15 05:44] VITALS: PULSE 101; O2SAT 99
[2023-11-15 05:48] VITALS: BP 163/87; PULSE 101; RESP 22; TEMP 36.5; O2SAT 99
[2023-11-15 06:00] VITALS: BP 163/87; PULSE 71; RESP 21; O2SAT 97
--- NOTE | 2023-11-15 06:11 | ED_ITS ---
HPI - Back Pain/Injury General Chief Complaint: Back Pain/Injury Stated Complaint: lower back pain down to rt side leg Time Seen by Provider: 11/15/23 05:45 Source: patient Mode of arrival: Ambulatory History of Present Illness HPI Narrative: patient is a 68-year-old female. I have evaluated here in the emergency department 2 times in the past. Last 1 being earlier this week where we were able to obtain a lumbar spine MRI. It does show degenerative disc disease but no sign of an acute surgical issue such as cauda equina. She took her last dose of prednisone yesterday. She has hydrocodone and meloxicam and cyclobenzaprine. She thinks that the cyclobenzaprine actually has not been helping all that much. She takes the pain medication 1 tablet every 4 hours. She feels like it does help her symptoms somewhat but not completely. She has an appointment next Sunday with a specialist to discuss having steroid injections. She did have a bowel movement yesterday. States that last evening the discomfort was just getting worse and the pain medication was not working for her. She describes no new symptoms. Related Data Home Medications Medication Instructions Recorded Confirmed levothyroxine 137 mcg tablet 137 mcg PO DAILY 04/09/19 07/30/23 (Synthroid) aedxtdeo-kjq-zythn acid 0.4 1 tab PO DAILY 04/09/19 07/30/23 mg-lycopene 300 mcg-lutein 250 mcg tablet (Centrum Silver) omeprazole 20 mg capsule,delayed 20 mg PO BID 04/09/19 07/30/23 release diltiazem HCl 120 mg capsule,24 120 mg PO DAILY 10/23/22 07/30/23 hr,extended release famotidine 20 mg tablet 20 mg PO BEDTIME 10/23/22 07/30/23 hydralazine 25 mg tablet 25 mg PO DAILY 10/23/22 07/30/23 losartan 100 1 tab PO DAILY 10/23/22 07/30/23 mg-hydrochlorothiazide 25 mg tablet rosuvastatin 5 mg tablet (Crestor) 5 mg PO DAILY 10/23/22 12/11/22 Previous Rx's Medication Instructions Recorded meloxicam 7.5 mg tablet 7.5 mg PO BID PRN pain #10 tabs 08/14/23 codeine 10 mg-guaifenesin 200 mg/5 5 ml PO Q6H PRN cough #100 mL 09/23/23 mL oral liquid hydrocodone-homatropine 5 mg-1.5 5 ml PO Q6H PRN cough #100 mL 09/23/23 mg/5 mL (5 mL) oral syrup cyclobenzaprine 10 mg tablet 10 mg PO TID PRN muscle spasm #21 11/02/23 tabs hydrocodone 5 mg-acetaminophen 325 1 tab PO Q4-6H PRN pain #20 tabs 11/02/23 mg tablet hydrocodone 5 mg-acetaminophen 325 1 tab PO Q4-6H PRN pain #20 tabs 11/11/23 mg tablet docusate sodium 100 mg capsule 100 mg PO DAILY #30 caps 11/15/23 (Colace) hydrocodone 10 mg-acetaminophen 1 tab PO Q4-6H PRN pain #20 tabs 11/15/23 325 mg tablet hydromorphone 2 mg tablet 2 mg PO Q8H PRN pain #6 tabs 11/15/23 (Dilaudid) Allergies Allergy/AdvReac Type Severity Reaction Status Date / Time dexamethasone Allergy Severe Rash Verified 08/14/23 08:01 felodipine Allergy Intermediate Verified 08/14/23 08:01 Sulfa (Sulfonamide AdvReac Severe Irritable Verified 08/14/23 08:01 Antibiotics) lisinopril AdvReac Cough Verified 08/14/23 08:01 bowel prep AdvReac Severe Vomiting Uncoded 08/14/23 08:01 Review of Systems Constitutional Constitutional: Reports system reviewed and no additional complaints, except as documented Genitourinary Genitourinary: Reports system reviewed and no additional complaints, except as documented Musculoskeletal Musculoskeletal: Reports system reviewed and no additional complaints, except as documented Integumentary/Breasts Skin/Breast: Reports system reviewed and no additional complaints, except as documented Patient History Medical History SVT (supraventricular tachycardia) Hypertension Social History household members: spouse Smoking Status: Never smoker alcohol intake: current Smoking Status: Never smoker alcohol intake frequency: holidays/special occasions only Substance Use Type: does not use Exam Initial Vital Signs Initial Vital Signs: Vital Signs Pulse Rate 101 H 11/15/23 05:44 Pulse Oximetry 99 11/15/23 05:44 HENNC Head: normal to inspection and normocephalic Resp Effort & Inspection: normal respiratory effort Cardio Rate: regular rate Neuro General: patient alert and patient awake Extrem General: capillary refill normal Course Orders Ordered: Discontinued Medications Hydromorphone HCl (Hydromorphone 1 Mg Inj) 1 mg IM NOW ONE Stop: 11/15/23 06:11 Last Admin: 11/15/23 06:18 Dose: 1 mg Ketorolac Tromethamine (Ketorolac 30 Mg/Ml Vial) 30 mg IM NOW ONE Stop: 11/15/23 06:11 Last Admin: 11/15/23 06:18 Dose: 30 mg Vital Signs Vital signs: Vital Signs - 8 hr 11/15/23 05:44 11/15/23 05:48 11/15/23 06:00 Temperature 97.7 F Pulse Rate 101 H 101 H 71 Respiratory Rate 22 21 Blood Pressure 163/87 H 163/87 H Pulse Oximetry 99 99 97 Oxygen Delivery Method Room Air Room Air 11/15/23 06:30 Temperature Pulse Rate 70 Respiratory Rate 20 Blood Pressure 163/87 H Pulse Oximetry 97 Oxygen Delivery Method Room Air MDM - Back Pain/Injury MDM Narrative Medical decision making narrative: Patient is obviously struggling to keep her symptoms under relative control. She states that the hydrocodone that she has been taking does seem to help but is only for short period of time and does not take the pain completely away. She states that it takes it down to a 6/10. Plan will be is to increase this from 5/325-10/325. She also has a occasional breakthrough pain which the last 2 times that I have seen her was why she came here in the emergency department. I will also provide a prescription for oral Dilaudid. She understands that this is for very limited use and should be for breakthrough pain. We discussed the importance of a good bowel regimen. Will have her keep her appointment with the patient financial services specialist that she was seeing on Sunday of next week. She was given return precautions. She did report improvement of symptoms after medications here in the ER. Discharge Plan Departure Patient Disposition: Home Clinical Impression: Lumbar back pain Instructions: DI for Low Back Pain Activity Restrictions/Additional Instructions: I would recommend that you stop taking the cyclobenzaprine/Flexeril. This is the muscle relaxer. I doubt that is actually providing you any benefit. Continue to take the meloxicam. A new prescription for the hydrocodone was sent to [facility]. You were also given a prescription for a stronger pain medication that should only be reserved for breakthrough pain. It is also important that you are on a good bowel regimen to include fiber/stool softener/laxatives. I sent a prescription for a stool softener to [facility] as well. Keep all of your scheduled medical appointments. Return to the emergency department for new symptoms. Prescriptions: New hydrocodone-acetaminophen 10-325 mg tablet 1 tab PO Q4-6H PRN (Reason: pain) Qty: 20 0RF hydromorphone [Dilaudid] 2 mg tablet 2 mg PO Q8H PRN (Reason: pain) Qty: 6 0RF docusate sodium [Colace] 100 mg capsule 100 mg PO DAILY Qty: 30 0RF No Action hydralazine 25 mg tablet 25 mg PO DAILY Patient Comments: Take 1 tablet by mouth twice a day losartan-hydrochlorothiazide 100-25 mg tablet 1 tab PO DAILY famotidine 20 mg tablet 20 mg PO BEDTIME Patient Comments: Take 1 tablet every night diltiazem HCl 120 mg capsule,extended release 24 hr 120 mg PO DAILY Patient Comments: twice a day rosuvastatin [Crestor] 5 mg tablet 5 mg PO DAILY Patient Comments: every evening meloxicam 7.5 mg tablet 7.5 mg PO BID PRN (Reason: pain) Qty: 10 0RF levothyroxine [Synthroid] 137 mcg Tablet 137 mcg PO DAILY omeprazole 20 mg Capsule,Delayed Release(Dr/Ec) 20 mg PO BID Centrum Silver 0.4-300-250 mg-mcg-mcg Tablet 1 tab PO DAILY hydrocodone-homatropine 5-1.5 mg/5 mL (5 mL) syrup 5 ml PO Q6H PRN (Reason: cough) Qty: 100 0RF codeine-guaifenesin 10-200 mg/5 mL liquid 5 ml PO Q6H PRN (Reason: cough) Qty: 100 0RF hydrocodone-acetaminophen 5-325 mg tablet 1 tab PO Q4-6H PRN (Reason: pain) Qty: 20 0RF cyclobenzaprine 10 mg tablet 10 mg PO TID PRN (Reason: muscle spasm) Qty: 21 0RF hydrocodone-acetaminophen 5-325 mg tablet 1 tab PO Q4-6H PRN (Reason: pain) Qty: 20 0RF Referrals: Jose Manuel Winters MD [Primary Care Provider] - Stand Alone Forms: Patient Portal/API
[2023-11-15] MEDS: KETOROLAC 30 MG/ML VIAL IM (06:18)
[2023-11-15] MEDS: HYDROMORPHONE 1 MG INJ IM (06:18)
[2023-11-15 06:30] VITALS: BP 163/87; PULSE 70; RESP 20; O2SAT 97
== END 2023-11-15 06:58 | disposition home or self-care (01) ==
PROVIDERS: Emergency Provider Emergency Medicine; Family Provider Family Medicine; PCP Internal Medicine
DX: M54.50 Low back pain, unspecified (principal)
CPT/HCPCS: 96372; 99283; J1170; J1885

== ENCOUNTER → 2023-12-18 09:56 | Outpatient (CLI) | payer MEDICARE, OTHER, SELFPAY ==
[2023-12-18 10:53] LABS: Add Manual Diff / Slide Review NO; Basophils Absolute Auto 0 /uL (0-100); Basophils Percent Auto 0.7 % (0-2); Eosinophils Absolute Auto 200 /uL (0-450); Hematocrit 33.6 % (36-46); Hemoglobin 11.4 g/dL (12.0-16.0); Lymphocytes Absolute Auto 900 /uL (1100-4500); Lymphocytes Percent Auto 15.1 % (25-40); Mean Corpuscular HGB Conc 34.1 % (30-36); Mean Corpuscular Hemoglobin 29.3 PG (26-34); Mean Corpuscular Volume 86.1 fL (80-100); Monocytes Absolute Auto 700 /uL (0-900); Neutrophils Absolute Auto 3900 /uL (1500-7000); Neutrophils Percent Auto 68.2 % (50-75); Platelet Count 380 X10^3/uL (150-400); Red Cell Distribution Width 14.9 % (11.6-14.8); White Blood Cell Count 5.6 X10^3/uL (4.5-11.0)
[2023-12-18 11:16] LABS: Blood Urea Nitrogen 22 mg/dL (7-17); Calcium 8.6 mg/dL (8.4-10.2); Carbon Dioxide 31 mmol/L (22-32); Chloride 102 mmol/L (98-107); Estimated Glomerular Filt Rate 58 mL/min (>60); Glucose 95 mg/dL (80-110); HEMOLYSIS < 15 (0-50); Potassium 3.2 mmol/L (3.4-5.1); Sodium 139 mmol/L (137-145)
== END ==
LOC: LAB 10:00
PROVIDERS: Family Provider Family Medicine; PCP Internal Medicine; Referring Provider Orthopaedic Surgery Orthopaedic Surgery of the Spine; Visit Provider Orthopaedic Surgery Orthopaedic Surgery of the Spine
DX: Z01.818 Encounter for other preprocedural examination (principal); Z01.812 Encounter for preprocedural laboratory examination
CPT/HCPCS: 36415; 80048; 85025; 93005; 93010

== ENCOUNTER 2024-01-14 06:09 | Day surgery (SDC) | payer MEDICARE, OTHER, SELFPAY ==
[2024-01-07 08:16] VITALS: BMI 29.6
[2024-01-14] VITALS (9 sets, daily range): BP systolic 120–142; BP diastolic 67–88; PULSE 13–102; RESP 13–89; TEMP 36.2; O2SAT 96–100; BMI 29.6
[2024-01-14] MEDS: LACTATED RINGERS 1,000 ML 100 ML IV (07:04)
--- NOTE | 2024-01-14 07:51 | PM.PREOP ---
Pre-operative Note Interval Note History & Physical reviewed/Exam performed by Physician: Yes Changes to H&P: No
[2024-01-14] MEDS: SCOPOLAMINE 1 PATCH TOP (07:52)
--- NOTE | 2024-01-14 08:00 | SUR.PREOP ---
PT VOIDED AFTER DR VISIT
[2024-01-14] MEDS: CEFAZOLIN 2 GM/100 ML PREMIX 100 ML IV (08:12)
--- NOTE | 2024-01-14 08:23 | SUR.OPER ---
Prone on spine table, head in foam head support, padded chest and pelvic supports, gel pad at knees, lower legs supported by pillows; nipples, genitalia and toes free of pressure, arms secured on foam padded arm boards at <90 degrees abduction. Tape over blanket at thigh secured to table.
[2024-01-14] MEDS: BUPIVACAINE 0.25% (PF) 30 ML, EPINEPHrine 0.15 MG INJ (08:26)
--- NOTE | 2024-01-14 08:40 | DI.RAD.S_ITS ---
PROCEDURE: XR LUMBAR SPINE 2-3V INDICATIONS: L3-4 MICRODISCECTOMY TECHNIQUE: 2 fluoroscopic views of the lumbar spine were acquired. COMPARISON: [facility], RF, LUMBAR TRANSFORAMINAL MATTIE, 11/28/2023, 14:14. [facility], CR, XR LUMBAR SPINE 2-3V, 11/02/2023, 10:22. FINDINGS: Localization device at the L3-L4 level. Disc space height loss at L5-S1. IMPRESSION: Intraoperative guidance provided. Dictated by: Allan Herrera M.D. on 01/14/2024 at 10:20 Approved by: Allan Herrera M.D. on 01/14/2024 at 10:21
--- NOTE | 2024-01-14 09:01 | PM.OP.1 ---
Operative Date/Time/Diagnoses Date of procedure: 01/14/24 Time of procedure: 07:40 Pre-op diagnosis: 1. L3-4 spinal stenosis 2. Lumbar radiculopathy Post-op diagnosis: same Procedure & Clinicians Procedure: 1. L3-4 right hemilaminectomy with partial facetecomy 2. Utilization of microsurgical technique and operating microscope Same procedure as scheduled: Yes Indications: Patient has been having chronic back pain and worsening lumbar radiculopathy. Patient has MRI showing significant central stenosis with lateral recess stenosis due to both central disc herniation and bilateral facet hypertrophy at L3-4 level correlating with her symptoms. Patient failed multiple conservative management with worsening pain weakness and numbness in her lower extremity. Patient has been having difficulty performing activity of daily living. After discussing risks benefits of treatment options, patient elected proceed with surgery. Surgeon: Gordy Zhou Non Destructive Evaluation Technician: Debbie Johnson Click Yes if Unassisted: No Anesthesia Type: General Operative Notes Closure Type: primary Estimated Blood Loss (mL): 5 Blood products transfused: none Procedure in detail: Patient was seen in the preoperative area. Risks and benefits of the surgery was discussed with the patient. Informed consent was obtained from the patient and placed in the chart. Surgical site was marked. Patient was taken to the operative room. General anesthesia was administered. Prophylactic antibiotic was given to the patient less than 30 min before the incision was made. Patient was placed into a prone position on the Ryley table. Patient's back was then prepped and draped in the sterile fashion. Time-out was performed at this time. Using AP and lateral C-arm imaging the interval between L3-4 was identified and marked on patient's back. A 1 inch incision 1 in from midline was made on the right side. The fascia was incised in line with skin incision. Globus MARS retractors was placed inside the incision and docked onto the L3 lamina. Using microsurgical technique and operating microscope, a L3-4 hemilaminectomy was performed using a Kerrison rongeur. Liagamentum flavum was resected at the site of the ulices-laminectomy. Either side of the dura was exposed. Bilateral partial facetcomies was performed to further decompress the lateral recess. There was also significant amount of epidural lipomatosis in epidural space after the lamina was removed. The lipomas were also resected to further decompress the epidural space. After the ulices laminectomy was completed, the area medial lateral superior and inferior to the area of the ulices was inspected and explored using a micro curette. No other impinging structure was identified. The wound was then irrigated with sterile normal saline. 40 mg Depo-Medrol was placed into the epidural space. The deep fascia was closed with 1-0 Vicryl. The subcutaneous tissue was closed with 2-0 Vicryl. The skin was closed with skin horace. Patient tolerated the procedure well. There were no complications. Patient was transferred recovery room in stable condition. Complications: none Post-operative Condition: stable Disposition: PACU Plan for aftercare: Discharge to home
[2024-01-14] MEDS: OXYCODONE/ACETAMINOPHEN 5/325 TABLET 1 TAB PO ×2 (09:23→09:55)
[2024-01-14] MEDS: hydrOXYzine 50 MG/ML INJ 25 MG IM (09:57)
== END 2024-01-14 10:00 | disposition home or self-care (01) ==
PROVIDERS: Family Provider Family Medicine; PCP Internal Medicine; Referring Provider Orthopaedic Surgery Orthopaedic Surgery of the Spine; Visit Provider Orthopaedic Surgery Orthopaedic Surgery of the Spine
PROC: (CPT 63030; principal; 2024-01-14 07:45)
DX: M51.26 Other intervertebral disc displacement, lumbar region (principal); M48.07 Spinal stenosis, lumbosacral region; M54.16 Radiculopathy, lumbar region; D17.79 Benign lipomatous neoplasm of other sites
CPT/HCPCS: 63030; 72100; 76000; J0171; J0330; J0690; J2405; J2704; J2920; J3010; J3410

== ENCOUNTER 2024-02-25 19:22 | Emergency (ER) | payer MEDICARE, OTHER, SELFPAY ==
[2024-02-25] VITALS (9 sets, daily range): BP systolic 154–183; BP diastolic 72–89; PULSE 79–97; RESP 20; TEMP 36.2; O2SAT 95–98; BMI 28.3
--- NOTE | 2024-02-25 19:31 | DI.CT.S_ITS ---
PROCEDURE: CT FACIAL BONES WO CON INDICATIONS: fall onto face, significant bruising TECHNIQUE: Noncontrast 2.5 mm thick axial images acquired from the mandible through the frontal sinuses, with coronal and sagittal reformatting. For radiation dose reduction, the following was used: automated exposure control, adjustment of mA and/or kV according to patient size. COMPARISON: None. FINDINGS: Image quality: Excellent. Bones and teeth: Orbital yan are intact. Sinus yan show no fracture or deformity. Nasal bones and septum are intact. Visualized portions of the mandible demonstrate no fractures or subluxation. Zygomatic arches are intact. Pterygoid plates are intact. Visualized portions of the skull base and auditory canals are intact. Sinuses: Small mucocele at the base of the left maxillary sinus. Paranasal sinuses are otherwise aerated, without fluid levels, mucosal thickening, or other mucoceles. Mastoid air cells are aerated. Soft tissues: There is mild hyperdense subcutaneous soft tissue thickening inferior to the right orbit. No radiodense foreign body or underlying fracture. No edema, masses, or fluid collections. No enlarged lymph nodes. No soft tissue lacerations or debris. Vascular: Visualized vascular structures appear normal in the absence of contrast. Bony vascular foramina and canals are intact. IMPRESSION: No facial bone fractures. No radiodense foreign bodies in the tissue. Swelling under the right eye without evidence of laceration. Dictated by: Kristi Gentile M.D. on 02/25/2024 at 20:39 Approved by: Kristi Gentile M.D. on 02/25/2024 at 20:42
--- NOTE | 2024-02-25 20:51 | ED_ITS ---
HPI - Fall General Chief Complaint: Fall Stated Complaint: Right side face injury, GLF, NO thinners Time Seen by Provider: 02/25/24 20:51 Source: patient and family Mode of arrival: Ambulatory History of Present Illness HPI Narrative: 68-year-old female was walking her dog, who crossed in front of her in her home cement patio outside, she felt to the right, struck the right side of her face on the cement patio, bruising and swelling to right side of the face, no loss of consciousness, no nausea or vomiting, no weakness or numbness. She had low back surgery approximately 6 weeks ago, and had increased right-sided back pain, radiating to her right buttock. No numbness or weakness to her legs. She had scraped to her nose, which bled, and seems to have stopped. Has bruising to the right lateral and inferior periorbital region, no visual changes, no loss of vision. Related Data Home Medications Medication Instructions Recorded Confirmed levothyroxine 137 mcg tablet 137 mcg PO DAILY 04/09/19 07/30/23 (Synthroid) omeprazole 20 mg capsule,delayed 20 mg PO BID 04/09/19 01/14/24 release diltiazem HCl 120 mg capsule,24 120 mg PO DAILY 10/23/22 01/14/24 hr,extended release famotidine 20 mg tablet 20 mg PO BEDTIME 10/23/22 01/14/24 hydralazine 25 mg tablet 25 mg PO DAILY 10/23/22 01/14/24 losartan 100 1 tab PO DAILY 10/23/22 07/30/23 mg-hydrochlorothiazide 25 mg tablet rosuvastatin 5 mg tablet (Crestor) 5 mg PO DAILY 10/23/22 01/14/24 fluticasone propionate 50 1 spray intranasal BID 01/14/24 01/14/24 mcg/actuation nasal spray,suspension Previous Rx's Medication Instructions Recorded meloxicam 7.5 mg tablet 7.5 mg PO BID PRN pain #10 tabs 08/14/23 hydrocodone-homatropine 5 mg-1.5 5 ml PO Q6H PRN cough #100 mL 09/23/23 mg/5 mL (5 mL) oral syrup docusate sodium 100 mg capsule 100 mg PO DAILY #30 caps 11/15/23 (Colace) hydromorphone 2 mg tablet 2 mg PO Q8H PRN pain #6 tabs 11/15/23 (Dilaudid) Allergies Allergy/AdvReac Type Severity Reaction Status Date / Time felodipine Allergy Intermediate Verified 01/14/24 07:09 dexamethasone AdvReac Severe Rash Verified 02/25/24 19:23 Sulfa (Sulfonamide AdvReac Severe Irritable Verified 01/14/24 07:09 Antibiotics) lisinopril AdvReac Cough Verified 01/14/24 07:09 bowel prep AdvReac Severe Vomiting Uncoded 01/14/24 07:09 Patient History Medical History (Updated 02/25/24 @ 22:26 by Kirby Cosby MD) Allergic rhinitis CAD (coronary artery disease) GERD (gastroesophageal reflux disease) Atrial flutter HLD (hyperlipidemia) Chronic bundle branch block SVT (supraventricular tachycardia) Hypertension Surgical History (Updated 01/07/24 @ 08:32 by Diana Garrett RN) Hx of thyroidectomy History of hysterectomy History of cardiac cath Social History household members: spouse Smoking Status: Never smoker alcohol intake: current Smoking Status: Never smoker alcohol intake frequency: holidays/special occasions only Substance Use Type: does not use Exam Narrative Exam Narrative: GENERAL: Well-developed patient, in mild distress. HEAD/face: No scalp lesions or tenderness, she has right periorbital swelling lateral and inferior, no crepitance, she has good conjugate gaze, no diplopia. No tenderness along zygoma. Some tenderness swelling to right upper lip, no dental fracture teeth, no mucosal lacerations, EYES: Pupils equal round and reactive. Extraocular motions intact. No scleral icterus. No injection or drainage. ENT: Nose without bleeding, purulent drainage. Throat without erythema, tonsillar hypertrophy or exudate. Airway patent. Scratches and scabs to her anterior nose without bridge tenderness. NECK: Trachea midline. Non tender CARDIOVASCULAR: Regular rate and rhythm without murmurs, gallops, or rubs. RESPIRATORY: Clear to auscultation. Breath sounds equal bilaterally. No wheezes, rales, or rhonchi. GASTROINTESTINAL: Abdomen soft, non-tender, nondistended. EXTREMITIES: No edema or joint tenderness. BACK: Nontender without deformity or crepitance. No flank tenderness. Some tenderness right paraspinal low lumbar area, no midline tenderness. NEURO: AOx3. SKIN: No rash or erythema of visible areas Initial Vital Signs Initial Vital Signs: Vital Signs Temperature 97.1 F L 02/25/24 19:23 Pulse Rate 97 H 02/25/24 19:23 Respiratory Rate 20 02/25/24 19:23 Blood Pressure 183/89 H 02/25/24 19:23 Pulse Oximetry 98 02/25/24 19:23 Oxygen Delivery Method Room Air 02/25/24 19:23 Course Orders Ordered: ED Orders 02/25/24 19:31 CT facial bones wo con Stat 02/25/24 21:05 CT lumbar spine wo con Stat Discontinued Medications Bacitracin (Bacitracin Oint 0.9 Gm Pckt) 1 applic TOP NOW ONE Stop: 02/25/24 21:15 Last Admin: 02/25/24 21:38 Dose: 1 applic Documented By: OSWALD Vital Signs Vital signs: Vital Signs - 8 hr 02/25/24 20:30 02/25/24 20:42 02/25/24 20:42 Pulse Rate 82 90 Blood Pressure 170/74 H Pulse Oximetry 96 98 02/25/24 21:00 02/25/24 21:30 02/25/24 21:38 Pulse Rate 86 82 Blood Pressure 154/72 H Pulse Oximetry 98 96 02/25/24 21:38 02/25/24 22:00 02/25/24 22:00 Pulse Rate 79 82 Blood Pressure 154/75 H Pulse Oximetry 97 95 MDM - Fall Imaging Data CT Face: Radiologist's Impression: [address] [address] [address] Scan Report Signed Patient: Kajal Sumner MR#: [id number] : 1955 Acct:[id number] Age/Sex: 68 / F Date of Service: 02/25/24 Loc: ED Accession Number: [id number] Procedure: CT facial bones wo con Ordering Provider: Kirby Cosby MD PROCEDURE: CT FACIAL BONES WO CON INDICATIONS: fall onto face, significant bruising TECHNIQUE: Noncontrast 2.5 mm thick axial images acquired from the mandible through the frontal sinuses, with coronal and sagittal reformatting. For radiation dose reduction, the following was used: automated exposure control, adjustment of mA and/or kV according to patient size. COMPARISON: None. FINDINGS: Image quality: Excellent. Bones and teeth: Orbital yan are intact. Sinus yan show no fracture or deformity. Nasal bones and septum are intact. Visualized portions of the mandible demonstrate no fractures or subluxation. Zygomatic arches are intact. Pterygoid plates are intact. Visualized portions of the skull base and auditory canals are intact. Sinuses: Small mucocele at the base of the left maxillary sinus. Paranasal sinuses are otherwise aerated, without fluid levels, mucosal thickening, or other mucoceles. Mastoid air cells are aerated. Soft tissues: There is mild hyperdense subcutaneous soft tissue thickening inferior to the right orbit. No radiodense foreign body or underlying fracture. No edema, masses, or fluid collections. No enlarged lymph nodes. No soft tissue lacerations or debris. Vascular: Visualized vascular structures appear normal in the absence of contrast. Bony vascular foramina and canals are intact. IMPRESSION: No facial bone fractures. No radiodense foreign bodies in the tissue. Swelling under the right eye without evidence of laceration. Dictated by: Kristi Gentile M.D. on 02/25/2024 at 20:39 Approved by: Kristi Gentile M.D. on 02/25/2024 at 20:42 CT Lumbar Spine: Radiologist's Impression: [place] [address] CT Scan Report Signed Patient: Kajal Sumner MR#: [id number] : 1955 Acct:[id number] Age/Sex: 68 / F Date of Service: 02/25/24 Loc: ED Accession Number: [id number] Procedure: CT lumbar spine wo con Ordering Provider: Kirby Cosby MD PROCEDURE: CT LUMBAR SPINE WO CON INDICATIONS: GLF, back surgery 6wks ago, low back pain right TECHNIQUE: Noncontrast 3 mm thick sections acquired from the T12 level to the sacrum. Sagittal and coronal reformats were constructed. For radiation dose reduction, the following was used: automated exposure control. COMPARISON: None. FINDINGS: Image quality: Excellent. Bones: There is stable bone alignment demonstrating trace retrolisthesis L5-S1. There is severe near complete disc height loss at T11-12 with anterior endplate spurring and endplate sclerosis. No acute vertebral body compression fractures. No harley spicious lytic or blastic bony lesions. No pars defects. There is right ulices laminectomy change at the L3-4 level on the right. T12-L1: No significant central canal or foraminal stenosis. L1-L2: No significant central canal or foraminal stenosis. L2-L3: Mild circumferential disc bulge and mild central canal stenosis. L3-L4: Moderate circumferential disc bulge. There is facet and ligamentum flavum hypertrophy as well as a decompressive laminotomy on the right. Moderate central canal stenosis appears similar, less well seen on CT than MRI. No significant foraminal stenosis. L4-L5: Moderate circumferential disc bulge, facet and ligamentum flavum arthropathy causing moderate central canal stenosis which seems slightly worse compared to the MRI. L5-S1: Chronic posterior disc osteophyte and facet arthropathy. Moderate left foraminal stenosis without significant change compared to prior. Soft tissues: No retroperitoneal masses or hematomas. Visualized aorta is normal in caliber. Prominent left renal parapelvic cyst. IMPRESSION: There may have been interval progression of L4-5 diffuse disc bulge causing moderate central canal stenosis. Recommend correlation with MRI. L3-4 laminectomy with persistent moderate central canal stenosis by CT. Again, comparison with MRI would be more sensitive. No acute fractures. Dictated by: Kristi Gentile M.D. on 02/25/2024 at 21:54 Approved by: Kristi Gentile M.D. on 02/25/2024 at 22:02 [facility] Narrative Medical decision making narrative: 68-year-old with mechanical fall, tripped at home outside patio by her dog, right facial contusions periorbital, no visual disturbance, no diplopia, no neck pain or upper extremity paresthesias. No blood thinners taken. No loss of consciousness. She had low back surgery 6 weeks ago, has increased pain to the right back after her fall, is worried about the surgical repair site. No numbness or weakness to her legs. No incontinence of urine or stool. CT facial bones showed no bony fractures. Wound cleansing [address] lumbar spine results pending CT lumbar spine shows L4-L5 disc bulging, perhaps progression from before. Consider follow up MRI. Patient is actually scheduled tomorrow with her orthopedic signs surgeon Dr. Zhou. She was able to ambulate to the bathroom. She had wound cleansing antibiotic ointment to facial abrasions. She would like to go home. Home with . Follow up with orthopedic spine surgeon tomorrow as planned Critical Care Time Critical Care Time Critical Care Time: No Discharge Plan Departure Patient Disposition: Home Clinical Impression: Contusion of face, Abrasion of face, Low back pain, Fall from ground level Instructions: How to Prevent Falls Activity Restrictions/Additional Instructions: Ground level fall tripped by a dog at backyard home patio, with bruising to the right face, no loss of consciousness, no neck pain. Approximately 6 weeks after lumbar surgery, increased back pain, no numbness or weakness to legs, no incontinence of urine or stool, no tingling. CT facial imaging showed no bony injury patterns. CT lumbar spine showed L4-L5 disc bulging, no acute traumatic changes to bony structures. You happen to have follow up with your spinal orthopedic surgeon tomorrow Dr. Leyva. Keep that appointment. We did discuss muscle relaxant or other therapies, we wanted to avoid sedation for now. Take Tylenol and Motrin as needed for discomfort. Antibiotic ointment applied to facial abrasions after cleansing. Use antibiotic ointment once or twice daily. Watch for signs of infection. Follow up with your orthopedic spine surgeon tomorrow as planned. Prescriptions: No Action hydralazine 25 mg tablet 25 mg PO DAILY Patient Comments: Take 1 tablet by mouth twice a day losartan-hydrochlorothiazide 100-25 mg tablet 1 tab PO DAILY famotidine 20 mg tablet 20 mg PO BEDTIME Patient Comments: Take 1 tablet every night diltiazem HCl 120 mg capsule,extended release 24 hr 120 mg PO DAILY Patient Comments: twice a day rosuvastatin [Crestor] 5 mg tablet 5 mg PO DAILY Patient Comments: every evening meloxicam 7.5 mg tablet 7.5 mg PO BID PRN (Reason: pain) Qty: 10 0RF hydromorphone [Dilaudid] 2 mg tablet 2 mg PO Q8H PRN (Reason: pain) Qty: 6 0RF docusate sodium [Colace] 100 mg capsule 100 mg PO DAILY Qty: 30 0RF levothyroxine [Synthroid] 137 mcg Tablet 137 mcg PO DAILY omeprazole 20 mg Capsule,Delayed Release(Dr/Ec) 20 mg PO BID hydrocodone-homatropine 5-1.5 mg/5 mL (5 mL) syrup 5 ml PO Q6H PRN (Reason: cough) Qty: 100 0RF fluticasone propionate 50 mcg/actuation spray,suspension 1 spray intranasal BID Referrals: Jose Manuel Winters MD [Primary Care Provider] - Stand Alone Forms: Patient Portal/API
--- NOTE | 2024-02-25 21:05 | DI.CT.S_ITS ---
PROCEDURE: CT LUMBAR SPINE WO CON INDICATIONS: GLF, back surgery 6wks ago, low back pain right TECHNIQUE: Noncontrast 3 mm thick sections acquired from the T12 level to the sacrum. Sagittal and coronal reformats were constructed. For radiation dose reduction, the following was used: automated exposure control. COMPARISON: None. FINDINGS: Image quality: Excellent. Bones: There is stable bone alignment demonstrating trace retrolisthesis L5-S1. There is severe near complete disc height loss at T11-12 with anterior endplate spurring and endplate sclerosis. No acute vertebral body compression fractures. No suspicious lytic or blastic bony lesions. No pars defects. There is right ulices laminectomy change at the L3-4 level on the right. T12-L1: No significant central canal or foraminal stenosis. L1-L2: No significant central canal or foraminal stenosis. L2-L3: Mild circumferential disc bulge and mild central canal stenosis. L3-L4: Moderate circumferential disc bulge. There is facet and ligamentum flavum hypertrophy as well as a decompressive laminotomy on the right. Moderate central canal stenosis appears similar, less well seen on CT than MRI. No significant foraminal stenosis. L4-L5: Moderate circumferential disc bulge, facet and ligamentum flavum arthropathy causing moderate central canal stenosis which seems slightly worse compared to the MRI. L5-S1: Chronic posterior disc osteophyte and facet arthropathy. Moderate left foraminal stenosis without significant change compared to prior. Soft tissues: No retroperitoneal masses or hematomas. Visualized aorta is normal in caliber. Prominent left renal parapelvic cyst. IMPRESSION: There may have been interval progression of L4-5 diffuse disc bulge causing moderate central canal stenosis. Recommend correlation with MRI. L3-4 laminectomy with persistent moderate central canal stenosis by CT. Again, comparison with MRI would be more sensitive. No acute fractures. Dictated by: Kristi Gentile M.D. on 02/25/2024 at 21:54 Approved by: Kristi Gentile M.D. on 02/25/2024 at 22:02
[2024-02-25] MEDS: BACITRACIN OINT 0.9 GM PCKT 1 APPLIC TOP (21:38)
== END 2024-02-25 22:32 | disposition home or self-care (01) ==
PROVIDERS: Emergency Provider Emergency Medicine; Family Provider Family Medicine; PCP Internal Medicine
DX: S00.83XA Contusion of other part of head, initial encounter (principal); S00.31XA Abrasion of nose, initial encounter; M54.50 Low back pain, unspecified; W01.0XXA Fall on same level from slipping, tripping and stumbling without subsequent striking against object, initial encounter
CPT/HCPCS: 70486; 72131; 99283

== ENCOUNTER 2024-03-30 07:48 | Emergency (ER) | payer MEDICARE, OTHER, SELFPAY ==
[2024-03-30 07:53] VITALS: BP 136/87; PULSE 91; O2SAT 95
[2024-03-30 07:56] VITALS: BP 136/87; PULSE 86; RESP 20; TEMP 36.4; O2SAT 99; BMI 29.2
--- NOTE | 2024-03-30 08:19 | ED_ITS ---
HPI - Recheck/Abnormal Lab/Rx General Chief Complaint: Recheck/Abnormal Lab/Rx Stated Complaint: GLF head injury, no thinners Time Seen by Provider: 03/30/24 08:03 Source: patient Mode of arrival: Ambulatory History of Present Illness HPI narrative: Patient is a 69-year-old female who presents today with ongoing headache and nausea. She reports that she fell 4 days ago while in [place]. She was walking looking at signs not paying attention when she tripped fell hit her head. She had a laceration she says there is a lot of blood. She went to the ED in [place] where she reports she had head CT and it was negative and she was discharged home. Since then she has had persistent headache that Tylenol is not helping with. She actually was seen evaluated here on February 24 for mechanical fall. Her dog tripped her she fell and hit her face. At that time she had a head CT cervical spine CT and face CT and ultimately discharged home. Today she denies any numbness tingling or weakness. She does report some right shoulder and right hip pain from when she fell. But she is able to ambulate and bear weight without any sort of difficulty. She did have some kind of numbness in her right hand and shoulder but that has since resolved. Related Data Home Medications Medication Instructions Recorded Confirmed levothyroxine 137 mcg tablet 137 mcg PO DAILY 04/09/19 07/30/23 (Synthroid) omeprazole 20 mg capsule,delayed 20 mg PO BID 04/09/19 01/14/24 release diltiazem HCl 120 mg capsule,24 120 mg PO DAILY 10/23/22 01/14/24 hr,extended release famotidine 20 mg tablet 20 mg PO BEDTIME 10/23/22 01/14/24 hydralazine 25 mg tablet 25 mg PO DAILY 10/23/22 01/14/24 losartan 100 1 tab PO DAILY 10/23/22 07/30/23 mg-hydrochlorothiazide 25 mg tablet rosuvastatin 5 mg tablet (Crestor) 5 mg PO DAILY 10/23/22 01/14/24 fluticasone propionate 50 1 spray intranasal BID 01/14/24 01/14/24 mcg/actuation nasal spray,suspension Previous Rx's Medication Instructions Recorded meloxicam 7.5 mg tablet 7.5 mg PO BID PRN pain #10 tabs 08/14/23 hydrocodone-homatropine 5 mg-1.5 5 ml PO Q6H PRN cough #100 mL 09/23/23 mg/5 mL (5 mL) oral syrup docusate sodium 100 mg capsule 100 mg PO DAILY #30 caps 11/15/23 (Colace) hydromorphone 2 mg tablet 2 mg PO Q8H PRN pain #6 tabs 11/15/23 (Dilaudid) hydrocodone 5 mg-acetaminophen 325 1 tab PO Q6H PRN pain #10 tabs 03/30/24 mg tablet ondansetron 4 mg disintegrating 4 mg PO Q8H PRN nausea and 03/30/24 tablet vomiting #10 tabs Allergies Allergy/AdvReac Type Severity Reaction Status Date / Time felodipine Allergy Intermediate Verified 01/14/24 07:09 dexamethasone AdvReac Severe Rash Verified 02/25/24 19:23 Sulfa (Sulfonamide AdvReac Severe Irritable Verified 01/14/24 07:09 Antibiotics) lisinopril AdvReac Cough Verified 01/14/24 07:09 bowel prep AdvReac Severe Vomiting Uncoded 01/14/24 07:09 Patient History Medical History Allergic rhinitis CAD (coronary artery disease) GERD (gastroesophageal reflux disease) Atrial flutter HLD (hyperlipidemia) Chronic bundle branch block SVT (supraventricular tachycardia) Hypertension Surgical History Hx of thyroidectomy History of hysterectomy History of cardiac cath Social History household members: spouse Smoking Status: Never smoker alcohol intake: current Smoking Status: Never smoker alcohol intake frequency: holidays/special occasions only Substance Use Type: does not use Exam Initial Vital Signs Initial Vital Signs: Vital Signs Pulse Rate 91 H 03/30/24 07:53 Blood Pressure 136/87 03/30/24 07:53 Pulse Oximetry 95 03/30/24 07:53 GENERAL: [Well-appearing, well-nourished] and in [no acute] distress. HEENT: Head atraumatic,EOMI, pupils reactive, face symmetric, [moist] mucous membranes NECK: No vertebral tenderness no step-off CARDIOVASCULAR: Regular rate and rhythm without murmurs, rubs or gallops. RESPIRATORY: Breath sounds equal bilaterally, no wheezes rales or rhonchi. ABDOMEN: Soft, nontender. Normoactive bowel sounds all 4 quadrants. No guarding or rebound. EXTREMITIES: Normal range of motion, no clubbing or edema. Neurovascularly intact NEUROLOGICAL: Alert and oriented x4.Normal gait and speech. Cranial nerves II through XII grossly intact. Door Assembler strength equal bilaterally SKIN: Warm, dry, no laceration, no petechiae, no rashes or lesions. Course Orders Ordered: ED Orders 03/30/24 08:26 CT head/brain wo con Stat 03/30/24 08:45 CBC Auto Diff [Complete Blood Count AUTO DIFF] Stat CMP [Comprehensive Metabolic Panel] Stat 03/30/24 09:58 EKG-12 Lead Stat Discontinued Medications Sodium Chloride (Normal Saline 0.9%) 1,000 mls @ 1,000 mls/hr IV BOLUS ONE Stop: 03/30/24 09:25 Last Infusion: 03/30/24 09:54 Dose: Infused Documented By: Admin: 03/30/24 08:48 Dose: 1,000 mls/hr Documented By: KEVIN Ketorolac Tromethamine (Ketorolac 30 Mg/Ml Vial) 15 mg IV NOW ONE Stop: 03/30/24 08:27 Last Admin: 03/30/24 08:49 Dose: 15 mg Documented By: KEVIN Ondansetron HCl (Ondansetron 4 Mg/2 Ml Inj) 4 mg IV NOW ONE Stop: 03/30/24 08:27 Last Admin: 03/30/24 08:49 Dose: 4 mg Documented By: KEVIN Vital Signs Vital signs: Vital Signs - 8 hr 03/30/24 07:53 03/30/24 07:53 03/30/24 07:56 Temperature 97.6 F Pulse Rate 91 H 86 Respiratory Rate 20 Blood Pressure 136/87 136/87 Pulse Oximetry 95 99 Oxygen Delivery Method Room Air 03/30/24 09:51 03/30/24 09:52 03/30/24 09:52 Temperature Pulse Rate 80 Respiratory Rate Blood Pressure 163/85 H Pulse Oximetry 99 98 Oxygen Delivery Method 03/30/24 10:00 Temperature Pulse Rate 71 Respiratory Rate Blood Pressure Pulse Oximetry 98 Oxygen Delivery Method MDM - Recheck/Abnormal Lab/Rx Lab Data 03/30/24 08:45 03/30/24 08:45 Labs: Lab Results 03/30/24 Range/Units 08:45 WBC 8.7 (4.5-11.0) X10^3/uL RBC 4.10 (4.0-5.2) X10^6/uL Hgb 12.1 (12.0-16.0) g/dL Hct 35.9 L (36-46) % MCV 87.5 (80-100) fL MCH 29.4 (26-34) PG MCHC 33.6 (30-36) % RDW 13.3 (11.6-14.8) % Plt Count 388 (150-400) X10^3/uL Neut % (Auto) 77.9 H (50-75) % Lymph % (Auto) 11.6 L (25-40) % [place] % (Auto) 6.7 (3-14) % Eos % (Auto) 3.1 (2-4) % Baso % (Auto) 0.7 (0-2) % Neut # (Auto) 6800 (7981-7193) /uL Lymph # (Auto) 1000 L (3866-3443) /uL [place] # (Auto) 600 (0-900) /uL Eos # (Auto) 300 (0-450) /uL Baso # (Auto) 100 (0-100) /uL Sodium 139 (137-145) mmol/L Potassium 3.6 (3.4-5.1) mmol/L Chloride 105 (98-107) mmol/L Carbon Dioxide 27 (22-32) mmol/L BUN 20 H (7-17) mg/dL Creatinine 0.89 (0.52-1.04) mg/dL Estimated GFR > 60 (>60) mL/min BUN/Creatinine Ratio 22.5 H (6-22) Glucose 101 (80-110) mg/dL Calcium 8.3 L (8.4-10.2) mg/dL Total Bilirubin 0.5 (0.2-1.3) mg/dL AST 29 (14-36) IU/L ALT 24 (<35) IU/L Alkaline Phosphatase 72 (38-126) U/L Total Protein 7.2 (6.3-8.2) g/dL Albumin 4.1 (3.5-5.0) g/dL Globulin 3.1 (1.7-4.1) g/dL Albumin/Globulin Ratio 1.3 (1.0-2.8) Urine Dip Bedside Urine Glucose Negative Bedside Urine Bilirubin - Negative Bedside Urine Ketone - Negative Urine Specific [place] 1.010 Bedside Urine Occult Blood - Negative Bedside Urine pH 7.5 Bedside Urine Protein - Negative Bedside Urine Urobilinogen - Negative Bedside Urine Nitrite - Negative Bedside Urine Leukocytes - Negative Esterase Imaging Data CT scan - head: Radiologist's Impression: PROCEDURE: CT HEAD/BRAIN WO CON INDICATIONS: fall 4 days ago headache nausea TECHNIQUE: Noncontrast 4.5 mm thick angled axial sections acquired from the foramen magnum to the vertex, with coronal and sagittal reformats. For radiation dose reduction, the following was used: automated exposure control, adjustment of mA and/or kV according to patient size. COMPARISON: None. FINDINGS: Image quality: Diagnostic. CSF spaces: Basal cisterns are patent. No extra-axial fluid collections. The ventricles are symmetric in size and shape. Brain: No acute intracranial hemorrhage or mass effect. There is mild cerebral volume loss for age, with resultant ventricular and sulcal prominence. There are mild periventricular and deep white matter chronic small vessel ischemic changes. There is intracranial internal carotid artery atherosclerosis. Skull and face: Calvarium and visualized facial bones appear intact, without suspicious lesions. Sinuses: Visualized sinuses and mastoids are clear. IMPRESSION: No acute intracranial pathology. Approved by: Rosalio Hernandez M.D. on 03/30/2024 at 9:04 MDM Narrative Medical decision making narrative: Patient 69-year-old female presents today with headache nausea vomiting. She would closed head injury about 4 days ago sounds like she had a small laceration and head CT and candidate. She continues to have symptoms today. This is her 2nd closed head injury within 1 month. She initially had a mechanical fall while walking her dog and sounds like a 2nd mechanical fall today. Repeat head CT today is negative for any fracture intracranial hemorrhage. Blood work today is overall reassuring without leukocytosis anemia or electrolyte abnormality or NIMO. Urinalysis is negative for UTI. Patient received IV fluids and Toradol along with Zofran and is overall feeling a bit better. We discussed at length concussion syndrome and repeat head injury. Strongly encouraged her gradual return to activities and follow-up with PCP. She is unable to take NSAIDs due to her stomach. She did receive Toradol and started having some acid like pain in her chest. EKG was done and does not show any evidence of acute coronary syndrome. I think this is directly related to some acid reflux not CAD Discharge Plan Departure Patient Disposition: Home Clinical Impression: Concussion syndrome Instructions: Postconcussion Syndrome Activity Restrictions/Additional Instructions: *You have been diagnosed with concussion syndrome *What to do: At this time blood work and head CT are overall reassuring. I suspect that you have concussion syndrome. Please talk to your provider. Limit screen time and stimulus this can make headaches worse *Continue to take medications as directed Zofran 4 mg every 8 hours for nausea or vomiting [place] 1 tablet every 6 hours only if needed for severe pain Tylenol 650 mg every 4-6 hours if needed for kcii-sj-eakvvero pain (please limit Tylenol to 4000 mg in 24 hours) *Follow up with your primary care provider in 2-3 days or call [phone] *Return to ER if you should have persistent vomiting worsening had a, weakness confused [or] any new, worsening or concerning symptoms CONTROLLED SUBSTANCE DISCHARGE (Narcotoic/benzodiazepine/Flexeril/Phenergan) 1. You have been prescribed narcotic medications, it does have acetaminophen/Tylenol/paracetamol in it, DO NOT TAKE MORE THAN 4,00mg in 24 hours of Tylenol. TRAMADOL DOES NOT CONTAIN TYLENOL 2. Please understand that we cannot provide further refills of narcotics, benzodiazepines or controlled substances through the ED and her pain management will need to be through your provider. 3. While on these medications you cannot drive or operate heavy machinery. 4. You cannot sign legal documents or perform any duties such as this. 5. As long as you're taking opiate pain medications he should also be taking a stool softener such as Colace, Dulcolax, MiraLAX or prune juice, to help avoid constipation. Prescriptions: New hydrocodone-acetaminophen 5-325 mg tablet 1 tab PO Q6H PRN (Reason: pain) Qty: 10 0RF ondansetron 4 mg tablet,disintegrating 4 mg PO Q8H PRN (Reason: nausea and vomiting) Qty: 10 0RF No Action hydralazine 25 mg tablet 25 mg PO DAILY Patient Comments: Take 1 tablet by mouth twice a day losartan-hydrochlorothiazide 100-25 mg tablet 1 tab PO DAILY famotidine 20 mg tablet 20 mg PO BEDTIME Patient Comments: Take 1 tablet every night diltiazem HCl 120 mg capsule,extended release 24 hr 120 mg PO DAILY Patient Comments: twice a day rosuvastatin [Crestor] 5 mg tablet 5 mg PO DAILY Patient Comments: every evening meloxicam 7.5 mg tablet 7.5 mg PO BID PRN (Reason: pain) Qty: 10 0RF hydromorphone [Dilaudid] 2 mg tablet 2 mg PO Q8H PRN (Reason: pain) Qty: 6 0RF docusate sodium [Colace] 100 mg capsule 100 mg PO DAILY Qty: 30 0RF levothyroxine [Synthroid] 137 mcg Tablet 137 mcg PO DAILY omeprazole 20 mg Capsule,Delayed Release(Dr/Ec) 20 mg PO BID hydrocodone-homatropine 5-1.5 mg/5 mL (5 mL) syrup 5 ml PO Q6H PRN (Reason: cough) Qty: 100 0RF fluticasone propionate 50 mcg/actuation spray,suspension 1 spray intranasal BID Referrals: Jose Manuel Winters MD [Primary Care Provider] - Stand Alone Forms: Patient Portal/API
--- NOTE | 2024-03-30 08:26 | DI.CT.S_ITS ---
PROCEDURE: CT HEAD/BRAIN WO CON INDICATIONS: fall 4 days ago headache nausea TECHNIQUE: Noncontrast 4.5 mm thick angled axial sections acquired from the foramen magnum to the vertex, with coronal and sagittal reformats. For radiation dose reduction, the following was used: automated exposure control, adjustment of mA and/or kV according to patient size. COMPARISON: None. FINDINGS: Image quality: Diagnostic. CSF spaces: Basal cisterns are patent. No extra-axial fluid collections. The ventricles are symmetric in size and shape. Brain: No acute intracranial hemorrhage or mass effect. There is mild cerebral volume loss for age, with resultant ventricular and sulcal prominence. There are mild periventricular and deep white matter chronic small vessel ischemic changes. There is intracranial internal carotid artery atherosclerosis. Skull and face: Calvarium and visualized facial bones appear intact, without suspicious lesions. Sinuses: Visualized sinuses and mastoids are clear. IMPRESSION: No acute intracranial pathology. Approved by: Rosalio Hernandez M.D. on 03/30/2024 at 9:04
[2024-03-30] MEDS: SODIUM CHLORIDE 0.9% 1,000 ML 1000 ML IV (08:48)
[2024-03-30] MEDS: KETOROLAC 30 MG/ML VIAL 15 MG IV (08:49)
[2024-03-30] MEDS: ONDANSETRON 4 MG/2 ML INJ IV (08:49)
[2024-03-30 08:54] LABS: Add Manual Diff / Slide Review NO; Basophils Absolute Auto 100 /uL (0-100); Basophils Percent Auto 0.7 % (0-2); Eosinophils Absolute Auto 300 /uL (0-450); Eosinophils Percent Auto 3.1 % (2-4); Hematocrit 35.9 % (36-46); Hemoglobin 12.1 g/dL (12.0-16.0); Lymphocytes Absolute Auto 1000 /uL (1100-4500); Lymphocytes Percent Auto 11.6 % (25-40); Mean Corpuscular HGB Conc 33.6 % (30-36); Mean Corpuscular Hemoglobin 29.4 PG (26-34); Mean Corpuscular Volume 87.5 fL (80-100); Monocytes Absolute Auto 600 /uL (0-900); Monocytes Percent Auto 6.7 % (3-14); Neutrophils Absolute Auto 6800 /uL (1500-7000); Neutrophils Percent Auto 77.9 % (50-75); Platelet Count 388 X10^3/uL (150-400); Red Cell Distribution Width 13.3 % (11.6-14.8); White Blood Cell Count 8.7 X10^3/uL (4.5-11.0)
[2024-03-30 09:19] LABS: Alanine Aminotransferase 24 IU/L (<35); Albumin 4.1 g/dL (3.5-5.0); Albumin Globulin Ratio 1.3 (1.0-2.8); Alkaline Phosphatase 72 U/L (38-126); Aspartate Aminotransferase 29 IU/L (14-36); BUN Creatinine Ratio 22.5 (6-22); Bilirubin Total 0.5 mg/dL (0.2-1.3); Blood Urea Nitrogen 20 mg/dL (7-17); Calcium 8.3 mg/dL (8.4-10.2); Carbon Dioxide 27 mmol/L (22-32); Chloride 105 mmol/L (98-107); Estimated Glomerular Filt Rate > 60 mL/min (>60); Globulin 3.1 g/dL (1.7-4.1); Glucose 101 mg/dL (80-110); HEMOLYSIS 21 (0-50); Potassium 3.6 mmol/L (3.4-5.1); Sodium 139 mmol/L (137-145); Total Protein 7.2 g/dL (6.3-8.2)
[2024-03-30 09:51] VITALS: O2SAT 99
[2024-03-30 09:52] VITALS: BP 163/85; PULSE 80; O2SAT 98
--- NOTE | 2024-03-30 09:56 | PC.NURSE ---
Pt ambulated to bathroom and reports that after returning to room, she started to experiencing what feels like chest pressure and burping a lot. Dr Green notified and ordered EKG. VS WNL
[2024-03-30 10:00] VITALS: PULSE 71; O2SAT 98
--- NOTE | 2024-03-30 10:03 | EKG_ITS ---
[place] [address] [address] [place] [id number] Test Date: 2024-03-30 Pat Name: Kajal Sumner Department: [facility] Room: Gender: Female Enrollment Counselor: RASHIDA : 1955 Requested By: Order Number: [id number] Reading MD: Joe Swanson Measurements Intervals [place] Rate: 63 P: 22 DE: 150 QRS: 46 QRSD: 136 T: 3 QT: 466 QTc: 476 Interpretive Statements Normal sinus rhythm Left bundle branch block Electronically Signed On 03-31-2024 16:35:28 PDT by Joe Swanson
== END 2024-03-30 10:21 | disposition home or self-care (01) ==
PROVIDERS: Emergency Provider Emergency Medicine; Family Provider Family Medicine; PCP Internal Medicine
DX: F07.81 Postconcussional syndrome (principal); R07.9 Chest pain, unspecified; W01.0XXA Fall on same level from slipping, tripping and stumbling without subsequent striking against object, initial encounter
CPT/HCPCS: 36415; 70450; 80053; 81003; 85025; 93005; 96361; 96374; 96375; 99284; J1885; J2405

== ENCOUNTER → 2024-05-06 17:26 | Outpatient (CLI) | payer MEDICARE, OTHER, SELFPAY ==
--- NOTE | 2024-05-06 17:28 | DI.MG.S_ITS ---
BILATERAL DIGITAL SCREENING MAMMOGRAM 3D/2D WITH CAD: 05/06/2024 CLINICAL: Routine screening. Comparison is made to exams dated: 05/06/2024 mammogram, 03/02/2023 mammogram, 02/09/2022 mammogram, and 02/02/2021 mammogram - [facility], 08/27/2015 mammogram - [facility]. Both breasts are heterogeneously dense, which may obscure small masses (category c / 51-75% glandular tissue). Current study was also evaluated with a Computer Aided Detection (CAD) system. No significant masses, calcifications, or other findings are seen in either breast. There has been no significant interval change. IMPRESSION: NEGATIVE There is no mammographic evidence of malignancy. A 1 year screening mammogram is recommended. Based on the Tyrer Cuzick model (a risk assessment model) the patient's lifetime risk is 6.1% and her 10 year risk is 3.6%. According to the ACR, ACS, and NCCN guidelines, an annual breast MRI exam along with mammogram is recommended if the patient's lifetime risk is 20% or greater. This exam was interpreted at Station ID: [id number]. NOTE: For mammograms, a report in lay terms will be sent to the patient. Approximately 15% of breast malignancies will not be visualized mammographically. In the management of a palpable breast mass, a negative mammogram must not discourage biopsy of a clinically suspicious lesion. Electronically Signed By: Allan Herrera M.D. slc/:05/07/2024 08:31:58 letter sent: Normal Exam ACR BI-RADS Category 1: Negative 3341F
== END ==
LOC: MAMMO 17:27
PROVIDERS: Family Provider Family Medicine; PCP Internal Medicine; Referring Provider Internal Medicine; Visit Provider Internal Medicine
DX: Z12.31 Encounter for screening mammogram for malignant neoplasm of breast (principal); R92.333 Mammographic heterogeneous density, bilateral breasts
CPT/HCPCS: 77063; 77067

== ENCOUNTER → 2024-06-22 08:29 | Outpatient (CLI) | payer MEDICARE, OTHER, SELFPAY ==
--- NOTE | 2024-06-22 08:32 | DI.MRI.S_ITS ---
PROCEDURE: MR LUMBAR SPINE WO CON INDICATIONS: TROCHANTERIC BURSITIS,RT HIP/SPINAL STENOSIS TECHNIQUE: Noncontrast sagittal T1 spin echo and T2 fast echo, sagittal STIR, and T2 fast spin echo through the lumbar spine. In cases with scoliosis, additional coronal T2 fast spin echo may be performed. COMPARISON: [facility], , MR LUMBAR SPINE WO CON, 11/11/2023, 8:54. FINDINGS: Image quality: Excellent. Alignment and Curvature: There is normal bony alignment. Bone Marrow: There is no marrow edema. No acute vertebral body compression fractures. Spinal Cord: Conus medullaris terminates at the L1 level. Visualized cord demonstrates normal signal and size. Paraspinous Soft Tissues: No paravertebral masses. T12-L1: Normal appearance. L1-L2: Loss of disc signal. No significant disc bulge, canal stenosis or neural foraminal narrowing. L2-L3: Loss of disc signal. Bilateral facet arthrosis is noted. No significant disc bulge, canal stenosis or neural foraminal narrowing. L3-L4: Loss of disc signal and disc height. Diffuse disc bulge and bilateral facet arthrosis is seen causing moderate central canal stenosis and severe L4-L5: Loss of disc signal. Broad-based disc bulge and bilateral facet arthrosis with hypertrophy of ligamentum flavum causing yxad-ph-[id number] central canal stenosis, moderate to severe right-sided neural foraminal narrowing and zhov-oh-vicxtkcf left-sided neural foraminal narrowing. L5-S1: Loss of disc height and disc signal. Broad-based disc bulge and bilateral facet arthrosis with mild central canal stenosis, and moderate to severe bilateral neural foraminal narrowing. There is likely compression of bilateral L5 nerve roots. IMPRESSION: 1. Degenerative disc bulge and bilateral facet arthrosis throughout lumbar spine causing various degrees of central canal stenosis and bilateral neural foraminal narrowing as described above. 2. No marrow edema. No acute compression fracture or significant spondylolisthesis. Dictated by: Destin Leyva M.D. on 06/23/2024 at 14:31 Approved by: Destin Leyva M.D. on 06/23/2024 at 14:36
--- NOTE | 2024-06-22 08:32 | DI.MRI.S_ITS ---
PROCEDURE: MR HIP RT WO CON INDICATIONS: TROCHANTERIC BURSITIS, RT HIP / SPINAL STENOSIS TECHNIQUE: Noncontrast coronal T1 spin echo and STIR through the bony pelvis. Coronal and axial T2 fast spin echo with fat saturation, sagittal T1 spin echo, and oblique axial T2 fast spin echo with fat saturation through the hip. COMPARISON: [facility], MR, MR HIP RT WO CON, 11/06/2023, 16:28. FINDINGS: Image quality: Excellent. Bones and joints: No MR evidence of fracture or dislocation. Dukn-lc-gcrhoeyl degenerative changes of the bilateral hips are again noted with joint space narrowing and marginal osteophytes unchanged. Tendons and ligaments: There is increased T2 weighted signal in the right trochanteric bursa which has the appearance of bursitis mildly increased. Increased T2 weighted signal with muscular injury/strain, edema in the gluteus minimus, gluteus medius, tensor fascia lj, vastus lateralis, and in the distal aspect of the iliotibial band increased. Mild increased T2 weighted signal of the distal biceps tendon at the ischial tuberosity unchanged. The iliopsoas tendon appears intact, without adjacent bursal fluid collections or evidence for impingement syndrome. The straight and reflected heads of the rectus femoris muscle origin appear intact. Labrum and cartilage: Suspected labral tear superior-anterior is again noted with moderate degenerate changes of the labrum with thinning and irregularity mildly progressed. Soft tissues: New approximately 2 cm area of soft tissue edema (axial series 5, image 32) lateral to the trochanteric bursa may be artifact related to prior injection sites, ecchymosis, hematoma, other soft tissue edema. Mild soft tissue edema is noted in the subcutaneous fat lateral to the greater trochanter as well. No focal loculated fluid collection to suggest abscess. No MR evidence of abnormal increased signal in the sciatic nerve bundle. IMPRESSION: Increased right trochanteric bursitis is suspected. Mildly increased muscular injury/strain in the gluteus minimus, gluteus medius, tensor fascia lj, vastus lateralis, and in the distal aspect of the iliotibial band. Mild edema of the distal biceps tendon at the ischial tuberosity unchanged. Suspected labral tear superior-anterior is again noted with moderate degenerate changes of the labrum mildly progressed. New 2 cm area of soft tissue edema lateral to the trochanteric bursa. Mild soft tissue edema is noted in the subcutaneous fat lateral to the greater trochanter. Continued follow-up suggested. Dictated by: Lavon Khan M.D. on 06/23/2024 at 9:03 Approved by: Lavon Khan M.D. on 06/23/2024 at 9:49
== END ==
LOC: MRI 08:30
PROVIDERS: Family Provider Family Medicine; PCP Internal Medicine; Referring Provider Physical Medicine & Rehabilitation; Visit Provider Physical Medicine & Rehabilitation
DX: M70.61 Trochanteric bursitis, right hip (principal); S76.011A Strain of muscle, fascia and tendon of right hip, initial encounter; M48.062 Spinal stenosis, lumbar region with neurogenic claudication; M48.07 Spinal stenosis, lumbosacral region; M51.36 Other intervertebral disc degeneration, lumbar region; M51.37 Other intervertebral disc degeneration, lumbosacral region; M47.816 Spondylosis without myelopathy or radiculopathy, lumbar region; M47.817 Spondylosis without myelopathy or radiculopathy, lumbosacral region; R60.0 Localized edema
CPT/HCPCS: 72148; 73721

== ENCOUNTER → 2024-11-09 15:22 | Outpatient (CLI) | payer MEDICARE, OTHER, SELFPAY | PROVIDERS: Family Provider Family Medicine; PCP Internal Medicine; Visit Provider Nurse Practitioner Family | DX: R35.0 Frequency of micturition (principal) | CPT/HCPCS: 87086 ==

== ENCOUNTER → 2024-11-28 09:43 | Outpatient (CLI) | payer MEDICARE, OTHER, SELFPAY ==
--- NOTE | 2024-11-28 09:44 | DI.US.S_ITS ---
PROCEDURE: US PERIPH VENOUS LOW EXTREM LT INDICATIONS: POSTERIOR KNEE PAIN TECHNIQUE: Real-time imaging, as well as color and pulse Doppler interrogation, were performed of the lower extremity deep veins from the inguinal ligament to the popliteal fossa, with documentation of the visualized calf veins. COMPARISON: None. FINDINGS: The common femoral, femoral, popliteal, and the visualized calf veins are normally compressible, and free of intraluminal thrombus. Color and pulse Doppler demonstrate normal phasic intraluminal flow. There is normal augmentation response to distal compression maneuver. A complex, hypoechoic fluid collection can be seen within the medial/posterior aspect of the left knee, measuring 5.6 x 2.2 x 2.6 cm. No abnormal vascularity can be seen. IMPRESSION: No findings of lower extremity deep venous thrombosis. Complex hypoechoic fluid collection seen at the site of clinical concern, without abnormal vascularity. Hematoma is suspected. Dictated by: Jean Johnson M.D. on 11/28/2024 at 9:17 Approved by: Jean Johnson M.D. on 11/28/2024 at 9:18
== END ==
PROVIDERS: Family Provider Family Medicine; PCP Internal Medicine; Referring Provider Nurse Practitioner Family; Visit Provider Nurse Practitioner Family
DX: M25.562 Pain in left knee (principal)
CPT/HCPCS: 93971

== ENCOUNTER → 2024-12-14 12:46 | Outpatient (CLI) | payer MEDICARE, OTHER, SELFPAY ==
[2024-12-14 13:32] LABS: Influenza A - CEPHEID Flu A NEGATIVE (NEGATIVE); Influenza B - CEPHEID Flu B NEGATIVE (NEGATIVE); Respiratory Syncytial Virus Negative (Negative)
[2024-12-14 13:33] LABS: COVID-19 CEPHEID 4-PLEX PCR Negative (Negative)
== END ==
PROVIDERS: Family Provider Family Medicine; PCP Internal Medicine; Visit Provider Nurse Practitioner Family
DX: R05.1 Acute cough (principal)
CPT/HCPCS: 0241U

== ENCOUNTER 2024-12-14 13:12 | Observation (INO) | payer MEDICARE, OTHER, SELFPAY ==
[2024-12-14] VITALS (12 sets, daily range): BP systolic 127–172; BP diastolic 63–93; PULSE 64–99; RESP 12–20; TEMP 36.2–36.3; O2SAT 96–99; BMI 30.2
--- NOTE | 2024-12-14 13:22 | DI.RAD.S_ITS ---
PROCEDURE: XR CHEST 1V INDICATIONS: chest pain TECHNIQUE: One view of the chest was acquired. COMPARISON: [facility], CR, XR CHEST 2V, 09/23/2023, 8:20. [facility], CR, XR CHEST 1V, 06/22/2023, 18:27. FINDINGS: Surgical changes and devices: None. Lungs and pleura: Lungs are clear. No pleural effusions or pneumothorax. Mediastinum: Mediastinal contours appear normal. Heart size is normal. Bones and chest wall: No suspicious bony lesions. Overlying soft tissues appear unremarkable. IMPRESSION: No acute cardiopulmonary abnormality is seen. Dictated by: Jen Hirsch M.D. on 12/14/2024 at 13:04 Approved by: Jen Hirsch M.D. on 12/14/2024 at 13:05
--- NOTE | 2024-12-14 13:23 | EKG_ITS ---
[place] [id number] [place] [id number] Test Date: 2024-12-14 Pat Name: Kajal Sumner Department: [facility] Room: Gender: Female Ultrasound Technologist Sonographer: RADHA : 1955 Requested By: Order Number: [id number] Reading MD: Jose Miguel Rudd Measurements Intervals [place] Rate: 72 P: 42 MT: 146 QRS: 64 QRSD: 134 T: 2 QT: 452 QTc: 494 Interpretive Statements Normal sinus rhythm Nonspecific intraventricular block Cannot rule out Inferior infarct , age undetermined Cannot rule out Anteroseptal infarct , age undetermined Electronically Signed On 12-15-2024 8:46:36 PDT by Jose Miguel Rudd
[2024-12-14] MEDS: ASPIRIN 81 MG CHEW TAB 324 MG PO (13:34)
[2024-12-14 13:46] LABS: Add Manual Diff / Slide Review NO; Basophils Absolute Auto 100 /uL (0-100); Basophils Percent Auto 1.1 % (0-2); Eosinophils Absolute Auto 400 /uL (0-450); Eosinophils Percent Auto 4.7 % (2-4); Hemoglobin 9.4 g/dL (12.0-16.0); INR 0.9 (0.9-1.3); Lymphocytes Absolute Auto 1100 /uL (1100-4500); Lymphocytes Percent Auto 12.9 % (25-40); Mean Corpuscular HGB Conc 32.5 % (30-36); Mean Corpuscular Hemoglobin 23.6 PG (26-34); Mean Corpuscular Volume 72.5 fL (80-100); Monocytes Absolute Auto 600 /uL (0-900); Monocytes Percent Auto 7.5 % (3-14); Neutrophils Absolute Auto 6200 /uL (1500-7000); Neutrophils Percent Auto 73.8 % (50-75); Platelet Count 525 X10^3/uL (150-400); Prothrombin Time 10.6 SECONDS (9.4-12.5); Red Cell Distribution Width 16.8 % (11.6-14.8); White Blood Cell Count 8.4 X10^3/uL (4.5-11.0)
[2024-12-14 13:50] LABS: Alanine Aminotransferase 37 IU/L (<35); Albumin 4.2 g/dL (3.5-5.0); Albumin Globulin Ratio 1.3 (1.0-2.8); Alkaline Phosphatase 88 U/L (38-126); Aspartate Aminotransferase 35 IU/L (14-36); BUN Creatinine Ratio 21.7 (6-22); Bilirubin Total 0.5 mg/dL (0.2-1.3); Blood Urea Nitrogen 25 mg/dL (7-17); Calcium 8.6 mg/dL (8.4-10.2); Carbon Dioxide 28 mmol/L (22-32); Chloride 98 mmol/L (98-107); Creatine Kinase 146 U/L (30-135); Estimated Glomerular Filt Rate 52 mL/min (>60); Globulin 3.2 g/dL (1.7-4.1); Glucose 100 mg/dL (80-110); HEMOLYSIS < 15 (0-50); Lipase 118 U/L (23-300); Magnesium 2.7 mg/dL (1.6-2.3); Potassium 3.9 mmol/L (3.4-5.1); Sodium 135 mmol/L (137-145); Total Protein 7.4 g/dL (6.3-8.2)
[2024-12-14 13:58] LABS: PTT Partial Thromboplastin Tim 34 SECONDS (25.1-36.5)
[2024-12-14 14:02] LABS: NT-proBNP (BNP-Adult 18+) 145 pg/mL (<125); Troponin I < 0.012 ng/mL (0.01-0.034)
[2024-12-14 16:12] LABS: Troponin I < 0.012 ng/mL (0.01-0.034)
--- NOTE | 2024-12-14 17:01 | ED_ITS ---
HPI - Chest Pain General Chief Complaint: Chest Pain Stated Complaint: WIC; SoB, Heaviness in my chest Time Seen by Provider: 12/14/24 16:53 Source: patient Mode of arrival: Ambulatory History of Present Illness HPI narrative: Patient 69-year-old female history of atrial fibrillation with ablation taking diltiazem hypothyroid hyperlipidemia presenting today with chest heaviness. She reports that she was having chest heaviness and shortness of breath with exertion. She noticed it last week while she was cleaning around the house she to stop and rest and symptoms subsided. She then was able to finish doing her chores. Today while she was making the bed she again got some chest heaviness and shortness of breath. She denies any radiation of pain. She just describes pressure in the center of her chest. She has no known history of coronary artery disease. She reports that she was followed by cardiology Dr. Rascon and says it some point she had a stress test but I do not see it in her records here. She currently not having a lot of pain. She has no upper respiratory illness no lower extremity edema no history of travel or pulmonary embolism Related Data Home Medications Medication Instructions Recorded Confirmed omeprazole 20 mg capsule,delayed 20 mg PO BID 04/09/19 12/14/24 release famotidine 20 mg tablet 20 mg PO BEDTIME 10/23/22 12/14/24 hydralazine 25 mg tablet 25 mg PO DAILY 10/23/22 12/14/24 losartan 100 1 tab PO DAILY 10/23/22 12/14/24 mg-hydrochlorothiazide 25 mg tablet rosuvastatin 5 mg tablet (Crestor) 5 mg PO DAILY 10/23/22 12/14/24 fluticasone propionate 50 1 spray intranasal BID 01/14/24 12/14/24 mcg/actuation nasal spray,suspension diltiazem HCl 120 mg mg PO DAILY 11/28/24 12/14/24 capsule,extended release 24 hr levothyroxine 112 mcg tablet mcg PO DAILY 11/28/24 12/14/24 (Synthroid) Allergies Allergy/AdvReac Type Severity Reaction Status Date / Time felodipine Allergy Intermediate Feet Verified 12/14/24 13:16 swelling dexamethasone AdvReac Severe Rash Verified 12/14/24 13:16 Sulfa (Sulfonamide AdvReac Severe Irritable Verified 12/14/24 13:16 Antibiotics) lisinopril AdvReac Cough Verified 12/14/24 13:16 bowel prep AdvReac Severe Vomiting Uncoded 12/14/24 12:49 Patient History Medical History Allergic rhinitis Atrial flutter CAD (coronary artery disease) Chronic bundle branch block GERD (gastroesophageal reflux disease) HLD (hyperlipidemia) Hypertension SVT (supraventricular tachycardia) Surgical History History of cardiac cath History of hysterectomy Hx of thyroidectomy Social History household members: spouse Smoking Status: Never smoker alcohol intake: current Smoking Status: Never smoker alcohol intake frequency: holidays/special occasions only Exam Initial Vital Signs Initial Vital Signs: Vital Signs Temperature 97.4 F L 12/14/24 13:16 Pulse Rate 77 12/14/24 13:16 Respiratory Rate 18 12/14/24 13:16 Blood Pressure 169/79 H 12/14/24 13:16 Pulse Oximetry 97 12/14/24 13:16 Oxygen Delivery Method Room Air 12/14/24 13:16 GENERAL: Alert pleasant 69-year-old female and in no acute distress. HEENT: Head atraumatic,EOMI, pupils reactive, face symmetric, moist mucous membranes CARDIOVASCULAR: Regular rate and rhythm without murmurs, rubs or gallops. RESPIRATORY: Breath sounds equal bilaterally, no wheezes rales or rhonchi. ABDOMEN: Soft, nontender. Normoactive bowel sounds all 4 quadrants. No guarding or rebound. EXTREMITIES: Normal range of motion, no clubbing or edema. Neurovascularly intact NEUROLOGICAL: Alert and oriented x4.Normal gait and speech. SKIN: Warm, dry, no laceration, no petechiae, no rashes or lesions. Scores HEART Score Heart Score history: Highly Suspicious Heart Score EKG: Normal Heart Score Age: > or = 65 years old Heart Score risk factors: 1-2 risk factors Heart Score troponin: < or = to normal limit Heart Score Total: 5 Course Orders Ordered: ED Orders 12/14/24 13:22 XR chest 1V Stat EKG-12 Lead Stat 12/14/24 13:31 Complete Blood Count AUTO DIFF Stat Comprehensive Metabolic Panel Stat Lipase Stat Magnesium Stat NT-proBNP (BNP-Adult 18+) Stat PTT Partial Thromboplastin Cristian Stat Prothrombin Time INR Stat Troponin & CK Cardiac Panel Stat 12/14/24 15:35 Trop I [Troponin I] Stat Acetaminophen (Acetaminophen 325 Mg Tablet) 650 mg PO Q6H PRN PRN Reason: Fever/Mild Pain (1-3) Aspirin (Aspirin Ec 325 Mg Tablet) 325 mg PO DAILY [facility] Atorvastatin Calcium (Atorvastatin 20 Mg Tablet) 10 mg PO DAILY [facility] Diltiazem HCl (Diltiazem Cd 120 Mg Cap) 120 mg PO DAILY [facility] Famotidine (Famotidine 20 Mg Tablet) 20 mg PO BEDTIME [facility] Fluticasone Propionate (Fluticasone 120 [place]/16 Gm [place].Susp) 1 spray NASAL BID [facility] Hydralazine HCl (Hydralazine 25 Mg Tablet) 25 mg PO DAILY [facility] Hydrochlorothiazide (Hydrochlorothiazide 25 Mg Tablet) 25 mg PO DAILY [facility] Levothyroxine Sodium (Levothyroxine 112 Mcg Tablet) 112 mcg PO DAILY [facility] Losartan Potassium (Losartan 50 Mg Tablet) 100 mg PO DAILY [facility] Morphine Sulfate (Morphine 2 Mg/Ml Inj) 2 mg IV Q5MIN PRN PRN Reason: Chest Pain Naloxone HCl (Naloxone 0.4 Mg/Ml Vial) 0.2 mg IV Q2MIN PRN PRN Reason: Opiate Reversal Nitroglycerin (Nitroglycerin 0.4 Mg Sl Tab) 0.4 mg SL [id number] PRN PRN Reason: Chest Pain Pantoprazole Sodium (Pantoprazole Dr 20 Mg Tablet) 20 mg PO 0600 [facility] Discontinued Medications Aspirin (Aspirin 81 Mg Chew Tab) 324 mg PO NOW ONE Stop: 12/14/24 13:23 Last Admin: 12/14/24 13:34 Dose: 324 mg Documented By: RL Nitroglycerin (Nitroglycerin 0.4 Mg Sl Tab) 0.4 mg SL NOW ONE Stop: 12/14/24 17:29 Last Admin: 12/14/24 17:44 Dose: 0.4 mg Documented By: CTS Non-Formulary Medication (Losartan-Hydrochlorothiazide) 1 tab PO DAILY ALE Non-Formulary Medication (Omeprazole) 20 mg PO BID ALE Non-Formulary Medication (Rosuvastatin [Crestor]) 5 mg PO DAILY [facility] Vital Signs Vital signs: Vital Signs - 8 hr 12/14/24 13:16 12/14/24 15:22 12/14/24 15:22 Temperature 97.4 F L Pulse Rate 77 78 Respiratory Rate 18 Blood Pressure 169/79 H 140/66 Pulse Oximetry 97 99 Oxygen Delivery Method Room Air 12/14/24 15:30 12/14/24 15:30 12/14/24 16:00 Temperature Pulse Rate 68 70 Respiratory Rate 17 13 Blood Pressure 146/73 H Pulse Oximetry 97 97 Oxygen Delivery Method Room Air 12/14/24 16:00 12/14/24 16:30 12/14/24 16:30 Temperature Pulse Rate 79 Respiratory Rate 12 Blood Pressure 163/77 H 170/75 H Pulse Oximetry 98 Oxygen Delivery Method 12/14/24 17:00 12/14/24 17:00 12/14/24 17:30 Temperature Pulse Rate 74 78 Respiratory Rate 14 20 Blood Pressure 154/73 H Pulse Oximetry 99 96 Oxygen Delivery Method Room Air 12/14/24 17:30 12/14/24 17:44 12/14/24 17:44 Temperature Pulse Rate 74 Respiratory Rate Blood Pressure 154/80 H 172/84 H 172/84 H Pulse Oximetry Oxygen Delivery Method 12/14/24 17:44 Temperature Pulse Rate 75 Respiratory Rate 14 Blood Pressure Pulse Oximetry 98 Oxygen Delivery Method MDM - Chest Pain Lab Data 12/14/24 13:31 12/14/24 13:31 Labs: Lab Results 12/14/24 12/14/24 Range/Units 13:31 15:35 WBC 8.4 (4.5-11.0) X10^3/uL RBC 4.00 (4.0-5.2) X10^6/uL Hgb 9.4 L (12.0-16.0) g/dL Hct 29.0 L (36-46) % MCV 72.5 L (80-100) fL MCH 23.6 L (26-34) PG MCHC 32.5 (30-36) % RDW 16.8 H (11.6-14.8) % Plt Count 525 H (150-400) X10^3/uL Neut % (Auto) 73.8 (50-75) % Lymph % (Auto) 12.9 L (25-40) % [place] % (Auto) 7.5 (3-14) % Eos % (Auto) 4.7 H (2-4) % Baso % (Auto) 1.1 (0-2) % Neut # (Auto) 6200 (6837-1933) /uL Lymph # (Auto) 1100 (4741-5810) /uL [place] # (Auto) 600 (0-900) /uL Eos # (Auto) 400 (0-450) /uL Baso # (Auto) 100 (0-100) /uL PT 10.6 (9.4-12.5) SECONDS INR 0.9 (0.9-1.3) APTT 34 (25.1-36.5) SECONDS Sodium 135 L (137-145) mmol/L Potassium 3.9 (3.4-5.1) mmol/L Chloride 98 (98-107) mmol/L Carbon Dioxide 28 (22-32) mmol/L BUN 25 H (7-17) mg/dL Creatinine 1.15 H (0.52-1.04) mg/dL Estimated GFR 52 L (>60) mL/min BUN/Creatinine Ratio 21.7 (6-22) Glucose 100 (80-110) mg/dL Calcium 8.6 (8.4-10.2) mg/dL Magnesium 2.7 H (1.6-2.3) mg/dL Total Bilirubin 0.5 (0.2-1.3) mg/dL AST 35 (14-36) IU/L ALT 37 H (<35) IU/L Alkaline Phosphatase 88 (38-126) U/L Total Creatine Kinase 146 H (30-135) U/L Troponin I < 0.012 < 0.012 (0.01-0.034) ng/mL NT-Pro-B Natriuret Pep 145 H (<125) pg/mL Total Protein 7.4 (6.3-8.2) g/dL Albumin 4.2 (3.5-5.0) g/dL Globulin 3.2 (1.7-4.1) g/dL Albumin/Globulin Ratio 1.3 (1.0-2.8) Lipase 118 (23-300) U/L Imaging Data Chest x-ray: Radiologist's Impression: PROCEDURE: XR CHEST 1V INDICATIONS: chest pain TECHNIQUE: One view of the chest was acquired. COMPARISON: [facility], CR, XR CHEST 2V, 09/23/2023, 8:20. [facility], CR, XR CHEST 1V, 06/22/2023, 18:27. FINDINGS: Surgical changes and devices: None. Lungs and pleura: Lungs are clear. No pleural effusions or pneumothorax. Mediastinum: Mediastinal contours appear normal. Heart size is normal. Bones and chest wall: No suspicious bony lesions. Overlying soft tissues appear unremarkable. IMPRESSION: No acute cardiopulmonary abnormality is seen. Dictated by: Jen Hirsch M.D. on 12/14/2024 at 13:04 ECG Data Attestation: I personally reviewed and interpreted this ECG as follows: Prior ECG tracings: available for review Interpretation: Normal sinus rhythm rate 72 CA interval 146 QRS 134 QTC 494 left bundle-branch block noted similar to prior EKGs no acute ST changes MDM Narrative Medical decision making narrative: Patient is 69-year-old female history of atrial fibrillation with ablation hypertension hyperlipidemia presenting today with chest heaviness and shortness of breath with exertion. Symptoms sound as though she was stable angina. She has no known history of coronary artery disease. She reports having a stress test but I do not see record of here. She has no acute EKGs changes. Troponin negative. Heart score of 5 Chest x-ray reviewed no acute cardiopulmonary process Blood work reviewed she does some mild anemia hemoglobin 9.4 hematocrit 29.0 platelets 525 Electrolytes within normal limits creatinine slightly elevated 1.15 previously 0.89 EKGs reviewed show left bundle-branch block no acute ischemia similar to prior patient ambulated to the restroom reports that she did have some chest heaviness and symptoms again with exertion and again resolving and subsiding with rest. symptoms are certainly concerning for stable angina no record stress test. Dr. Valles updated patient's symptoms test results and accepts patient Discharge Plan Departure Patient Disposition: Admitted as Observation Admit Date/Time: 12/14/24 17:56 Admit Provider: Deuce Valles V
--- NOTE | 2024-12-14 17:34 | EKG_ITS ---
[address] [address] [address] [address] Test Date: 2024-12-14 Pat Name: Kajal Sumner Department: Room: 225 Gender: Female Diving Fisher: ABHILASH : 1955 Requested By: Order Number: [id number] Reading MD: JoseM iguel Rudd Measurements Intervals [place] Rate: 72 P: 37 MA: 154 QRS: 21 QRSD: 142 T: 22 QT: 458 QTc: 501 Interpretive Statements Normal sinus rhythm Left bundle branch block Electronically Signed On 12-15-2024 8:47:24 PDT by Jose Miguel Rudd
[2024-12-14] MEDS: NITROGLYCERIN 0.4 MG SL TAB SL (17:44)
--- NOTE | 2024-12-14 18:02 | DI.ECHO.S_ITS ---
[facility]+ [facility] : : [address] : : [place] : : [id number] : : Phone: [phone] Echocardiogram Report + + :Name: CHANI LLOYD Study Date: 12/15/2024 Height: 62 in : :[facility] ReadingLocation: Weight: 165 lb : : Gender: Female BSA: 1.8 m2 : :: 1955 Age: 69 yrs BP: 142/76 mmHg: :Reason For Study: CHEST PAIN : :Ordering Physician: BECKIE, : :MIKE Performed By: Gina Ruiz : :Referring: MIKE BUTTS : + + Interpretation Summary Borderline concentric left ventricular hypertrophy with ejection fraction 60- 65%. Diastolic parameters suggest a relaxation abnormality of the left ventricle, consistent with probable normal filling pressures. The aortic valve is slightly calcified. Comparison is made with the echocardiogram of 10/31/2021, no significant change. Procedure: A two-dimensional transthoracic echocardiogram with color flow and Doppler was performed. The study quality was technically adequate. Comparison is made with the echocardiogram of 10/31/2021. The patient was in sinus rhythm with heart rates between 68-80 bpm during the exam. Left Ventricle: The left ventricle is normal in size. There is borderline concentric left ventricular hypertrophy. The ejection fraction is estimated to be 60-65%. There are no focal wall motion abnormalities. Diastolic parameters suggest a relaxation abnormality of the left ventricle, consistent with probable normal filling pressures. Right Ventricle: The right ventricle is normal in size and function. Atria: The left atrial size is normal. Right atrial size is normal. There is no Doppler evidence for an interatrial shunt. Mitral Valve: The mitral valve leaflets appear to open well. There is trace mitral regurgitation. Aortic Valve: The aortic valve is not well visualized. The aortic valve is slightly calcified. There is no aortic valve stenosis. No aortic regurgitation is present. Tricuspid Valve: The tricuspid valve leaflets are thin and pliable. No tricuspid regurgitation. Pulmonary artery pressures cannot be estimated because of the lack of a measurable TR jet velocity. Pulmonic Valve: The pulmonic valve is not well visualized. There is no pulmonic valvular regurgitation. Great Vessels: The aortic root is normal size. The dimensions of the ascending aorta are normal. The IVC is of normal diameter and collapses greater than 50% with a sniff. This suggests a low right atrial pressure of 3 mm Hg. Pericardium/ Pleura There is no pericardial effusion. There is no pleural effusion. MMode/2D Measurements & Calculations LVIDd: 4.6 cm LVOT diam: 2.0 cm LVIDs: 3.1 cm Ao root diam: 3.0 cm FS: 31.7 % asc Aorta Diam: 3.1 cm EPSS: 0.89 cm Ao Arch Diam (Prox Trans): 2.9 cm IVSd: 1.1 cm LVPWd: 1.00 cm LV greene. diameter/BSA (cm/m^2): 2.6 LV sys. diameter/BSA (cm/m^2): 1.8 LA A2 area: 18.0 cm2 RA long axis: 4.4 cm LA A4 area: 14.9 cm2 RA area: 12.0 cm2 LA length (vol): 4.4 cm RA vol: 27.7 ml LA vol: 51.7 ml RA : 15.7 ml/m2 LA vol index: 29.4 ml/m2 IVC diam: 1.4 cm RVD1 (basal): 3.3 cm RVD2 (mid): 2.9 cm TAPSE: 2.5 cm Doppler Measurements & Calculations Ao V2 max: 144.2 cm/sec LVOT Max Saud: 89.1 cm/sec Ao V2 mean: 105.2 cm/sec LV V1 max P.2 mmHg Ao max P.3 mmHg LV V1 VTI: 16.8 cm Ao mean P.8 mmHg LOTTIE(I,D): 1.8 cm2 Ao V2 VTI: 29.8 cm LOTTIE(V,D): 2.0 cm2 sev ratio: 0.56 LOTTIE indexed to BSA (cm^2/m^2): 1.0 MV E max saud: 45.8 cm/sec PA V2 max: 84.7 cm/sec MV A max saud: 95.4 cm/sec PA V2 mean: 58.6 cm/sec MV E/A: 0.48 PA mean P.6 mmHg Med Peak E' Saud: 3.8 cm/sec PA pr(Accel): 28.9 mmHg E/E' med: 12.1 Lat Peak E' Saud: 4.6 cm/sec E/E' lat: 10.0 E/e' average: 11.0 MV dec time: 0.24 sec SV(LVOT): 54.9 ml Electronically signed by: Gato Greer on Reading Physician:12/15/2024 08:25 AM
--- NOTE | 2024-12-14 18:06 | PM.HP.IH.1 ---
History of Present Illness History of Present Illness Date Patient Seen: 12/14/24 Time Patient Seen: 17:45 Chief complaint: WIC; SoB, Heaviness in my chest Narrative: 69-year-old woman with history of hypertension hyperlipidemia and paroxysmal atrial flutter status post ablation developed onset of exertional chest pressure last week, progressively more frequent over the past week, particularly with walking up stairs but developing with lower levels of activity, such as making her bed today. She was seen in the walk-in clinic initially directed to the ER. She has previously been seen by Dr. Marshall and Dr. Peres of [facility]. She denies nausea, vomiting, diaphoresis, radiation, abdominal pain, reflux symptoms, lightheadedness, syncope, or history of thromboembolism. She had an emergency department evaluation notable for mild anemia but otherwise nonischemic EKG and cardiac enzymes is admitted for further management and evaluation. She notes her father had an DE at age 49 and her mother later in life. She was also seen in walk-in clinic 2 weeks ago with left leg pain and found to have a left popliteal fluid collection, consistent with hematoma. She was previously under the care of Dr. Jose Manuel Winters but since his departure has not seen a new provider. [facility] Medical History Allergic rhinitis Atrial flutter CAD (coronary artery disease) Chronic bundle branch block GERD (gastroesophageal reflux disease) HLD (hyperlipidemia) Hypertension SVT (supraventricular tachycardia) Surgical History History of cardiac cath History of hysterectomy Hx of thyroidectomy Social History household members: spouse Smoking Status: Never smoker alcohol intake: current Meds Home Medications and Allergies Home Medications Medication Instructions Recorded Confirmed Type omeprazole 20 mg capsule,delayed 20 mg PO BID 04/09/19 12/14/24 History release famotidine 20 mg tablet 20 mg PO BEDTIME 10/23/22 12/14/24 History hydralazine 25 mg tablet 25 mg PO DAILY 10/23/22 12/14/24 History losartan 100 1 tab PO DAILY 10/23/22 12/14/24 History mg-hydrochlorothiazide 25 mg tablet rosuvastatin 5 mg tablet (Crestor) 5 mg PO DAILY 10/23/22 12/14/24 History fluticasone propionate 50 1 spray intranasal BID 01/14/24 12/14/24 History mcg/actuation nasal spray,suspension diltiazem HCl 120 mg mg PO DAILY 11/28/24 12/14/24 History capsule,extended release 24 hr levothyroxine 112 mcg tablet mcg PO DAILY 11/28/24 12/14/24 History (Synthroid) Allergies Allergy/AdvReac Type Severity Reaction Status Date / Time felodipine Allergy Intermediate Feet Verified 12/14/24 13:16 swelling dexamethasone AdvReac Severe Rash Verified 12/14/24 13:16 Sulfa (Sulfonamide AdvReac Severe Irritable Verified 12/14/24 13:16 Antibiotics) lisinopril AdvReac Cough Verified 12/14/24 13:16 bowel prep AdvReac Severe Vomiting Uncoded 12/14/24 12:49 Review of Systems Review of Systems ROS: Yes All systems reviewed with the patient and are negative except as otherwise documented Exam Vital Signs (past 8 hours): - 12/14/24 13:16 12/14/24 15:22 12/14/24 15:22 Temperature 97.4 F L Pulse Rate 77 78 Respiratory Rate 18 Blood Pressure 169/79 H 140/66 Pulse Oximetry 97 99 Oxygen Delivery Method Room Air 12/14/24 15:30 12/14/24 15:30 12/14/24 16:00 Temperature Pulse Rate 68 70 Respiratory Rate 17 13 Blood Pressure 146/73 H Pulse Oximetry 97 97 Oxygen Delivery Method Room Air 12/14/24 16:00 12/14/24 16:30 12/14/24 16:30 Temperature Pulse Rate 79 Respiratory Rate 12 Blood Pressure 163/77 H 170/75 H Pulse Oximetry 98 Oxygen Delivery Method 12/14/24 17:00 12/14/24 17:00 12/14/24 17:30 Temperature Pulse Rate 74 78 Respiratory Rate 14 20 Blood Pressure 154/73 H Pulse Oximetry 99 96 Oxygen Delivery Method Room Air 12/14/24 17:30 12/14/24 17:44 12/14/24 17:44 Temperature Pulse Rate 74 Respiratory Rate Blood Pressure 154/80 H 172/84 H 172/84 H Pulse Oximetry Oxygen Delivery Method 12/14/24 17:44 12/14/24 18:00 12/14/24 18:00 Temperature Pulse Rate 75 77 Respiratory Rate 14 17 Blood Pressure 144/68 H Pulse Oximetry 98 96 Oxygen Delivery Method Oxygen Delivery Method Room Air Narrative Exam Narrative: GENERAL: This is a well-nourished, well-developed patient, in no apparent distress. HEAD: Atraumatic. Normocephalic. No temporal or scalp tenderness. EYES: Pupils equal round and reactive. Extraocular motions intact. No scleral icterus. No injection or drainage. ENT: Mucous membranes pink and moist. NECK: Trachea midline. No JVD, bruits or lymphadenopathy. Supple, nontender, no meningeal signs. CARDIOVASCULAR: Regular rate and rhythm without murmurs, gallops, or rubs. RESPIRATORY: Clear to auscultation. GASTROINTESTINAL: Abdomen soft, non-tender, nondistended. EXTREMITIES: No clubbing, cyanosis, or edema. BACK: Nontender without deformity or crepitance. No flank tenderness. NEUROLOGIC: Alert, oriented, speech fluent, full upper and lower motor strength, no focal deficits evident. DERMATOLOGIC: No rashes or skin lesions. Objective ECG Impression: Normal sinus rhythm at 72 beats per minute Nonspecific intraventricular block Cannot rule out Inferior infarct , age undetermined Cannot rule out Anteroseptal infarct , age undetermined Imaging Chest x-ray: Radiologist's impression: No acute cardiopulmonary abnormality is seen. Lower extremity venous Dopplers 11/28/2024:: Radiologist's impression: No findings of lower extremity deep venous thrombosis. Complex hypoechoic fluid collection seen at the site of clinical concern, without abnormal vascularity. Hematoma is suspected. A complex, hypoechoic fluid collection can be seen within the medial/posterior aspect of the left knee, measuring 5.6 x 2.2 x 2.6 cm. No abnormal vascularity can be seen. Labs 12/14/24 13:31 12/14/24 13:31 Labs: Laboratory Results - last 24 hr 12/14/24 12/14/24 13:31 15:35 WBC 8.4 RBC 4.00 Hgb 9.4 L Hct 29.0 L MCV 72.5 L MCH 23.6 L MCHC 32.5 RDW 16.8 H Plt Count 525 H Neut % (Auto) 73.8 Lymph % (Auto) 12.9 L [place] % (Auto) 7.5 Eos % (Auto) 4.7 H Baso % (Auto) 1.1 Neut # (Auto) 6200 Lymph # (Auto) 1100 [place] # (Auto) 600 Eos # (Auto) 400 Baso # (Auto) 100 PT 10.6 INR 0.9 APTT 34 Sodium 135 L Potassium 3.9 Chloride 98 Carbon Dioxide 28 BUN 25 H Creatinine 1.15 H Estimated GFR 52 L BUN/Creatinine Ratio 21.7 Glucose 100 Calcium 8.6 Magnesium 2.7 H Total Bilirubin 0.5 AST 35 ALT 37 H Alkaline Phosphatase 88 Total Creatine Kinase 146 H Troponin I < 0.012 < 0.012 NT-Pro-B Natriuret Pep 145 H Total Protein 7.4 Albumin 4.2 Globulin 3.2 Albumin/Globulin Ratio 1.3 Lipase 118 Assessment & Plan Assessment & Plan narrative: 1. Exertional chest pain. Rule out ischemic cardiomyopathy. Admit to telemetry, monitor serial cardiac enzymes, and if otherwise unremarkable of clean echocardiogram and nuclear medicine stress testing tomorrow. Consider Cardiology consultation as indicated. Consider possible gastrointestinal source given anemia. 2. Microcytic anemia. Obtain iron studies, monitor stool guaiacs. Treat with PPI. 3. History of paroxysmal atrial flutter, status post ablation. Continue diltiazem. 4. Hypertension. Continue routine medication. 5. Hyperlipidemia. Continue routine statin therapy. Check lipids. 6. Hypothyroidism. Continue routine medication. Check TSH. 7. Code status: Full code. This is reviewed on admission. Her is her surrogate decision maker. Plan: -observation telemetry status -serial cardiac enzymes -echocardiogram -nuclear medicine stress testing -anemia workup -PPI Quality MIPS - Admit I confirm the patient?s Advance Care Plan is present, Code status is documented, Surrogate decision maker is in patient?s record [If Yes, STOP here]: Yes [facility] - Meds 'Current medications' to include all prescriptions, [id number] products, herbals, cannabis/cannabidiol products, and vitamin/mineral/dietary (nutritional) supplements. I have utilized all available resources to obtain, update, or review the patient?s current medications. [If Yes, STOP here]: Yes [employer] Document charge(s): No Charge Codes Initial inpatient/observation care: [id number]
[2024-12-14 18:37] LABS: Cholesterol 190 mg/dL (140-199); HDL Cholesterol 67 mg/dL (40-60); LDL Cholesterol Calculated 108 mg/dL (<100); Triglycerides 77 mg/dL (35-150)
[2024-12-14 18:45] LABS: HEMOLYSIS < 15 (0-50); Iron 35 ug/dL (37-170)
[2024-12-14 18:50] LABS: Troponin I < 0.012 ng/mL (0.01-0.034)
[2024-12-14 18:55] LABS: Percent Iron Saturation 10 % (15-50); Total Iron Binding Capacity 336 ug/dL (265-497); Transferrin 316 mg/dL (206-381)
[2024-12-14 19:20] LABS: Ferritin 6 ng/mL (11-264)
[2024-12-14] MEDS: HYDRALAZINE 25 MG TABLET PO (20:07)
[2024-12-14] MEDS: FAMOTIDINE 20 MG TABLET PO (20:07)
[2024-12-15] VITALS: BP 117/61; PULSE 83; RESP 16; TEMP 36.3; O2SAT 97
[2024-12-15 02:45] LABS: Troponin I < 0.012 ng/mL (0.01-0.034)
[2024-12-15 04:00] VITALS: BP 142/76; PULSE 72; RESP 12; TEMP 36.4; O2SAT 97
[2024-12-15] MEDS: ACETAMINOPHEN 325 MG TABLET 650 MG PO (07:57)
[2024-12-15] MEDS: PANTOPRAZOLE DR 20 MG TABLET PO (07:58)
[2024-12-15 08:00] VITALS: BP 153/85; PULSE 78; RESP 14; TEMP 36.2; O2SAT 97
[2024-12-15] MEDS: ASPIRIN EC 325 MG TABLET PO (08:06)
[2024-12-15] MEDS: LOSARTAN 50 MG TABLET 100 MG PO (08:06)
[2024-12-15] MEDS: HYDRALAZINE 25 MG TABLET PO (08:06)
[2024-12-15] MEDS: hydroCHLOROthiazide 25 MG TABLET PO (08:06)
[2024-12-15] MEDS: LEVOTHYROXINE 112 MCG TABLET PO (08:06)
[2024-12-15 12:00] VITALS: BP 144/80; PULSE 94; RESP 17; TEMP 36.1; O2SAT 98
--- NOTE | 2024-12-15 13:45 | P.DS_ITS ---
History of Present Illness History of Present Illness Chief complaint: WIC; SoB, Heaviness in my chest Narrative: From H&P: 69-year-old woman with history of hypertension hyperlipidemia and paroxysmal atrial flutter status post ablation developed onset of exertional chest pressure last week, progressively more frequent over the past week, particularly with walking up stairs but developing with lower levels of activity, such as making her bed today. She was seen in the walk-in clinic initially directed to the ER. She has previously been seen by Dr. Marshall and Dr. Peres of [facility] Cardiology. She denies nausea, vomiting, diaphoresis, radiation, abdominal pain, reflux symptoms, lightheadedness, syncope, or history of thromboembolism. She had an emergency department evaluation notable for mild anemia but otherwise nonischemic EKG and cardiac enzymes is admitted for further management and evaluation. She notes her father had an NH at age 49 and her mother later in life. She was also seen in walk-in clinic 2 weeks ago with left leg pain and found to have a left popliteal fluid collection, consistent with hematoma. She was previously under the care of Dr. Jose Manuel Winters but since his departure has not seen a new provider. Discharge Providers Provider Date of admission: 12/14/24 17:56 Discharge Date: 12/15/24 Primary care physician: Jose Manuel Winters MD Consults: None. Discharge provider: Jose Miguel Rudd MD Summary Hospital Course Discharge Diagnosis: 1. Exertional chest pain. Present on admission and resolved. She did have a low risk stress test. Her LVEF was normal on that study. 2. Microcytic anemia. Obtain iron studies, monitor stool guaiacs. Hemoglobin 9.4. 3. History of paroxysmal atrial flutter, status post ablation. Present on admission and stable. 4. Hypertension. Present on admission and stable. 5. Hyperlipidemia. Present on admission and stable. 6. Hypothyroidism. Present on admission and stable. Hospital Course: She was evaluated with serial negative troponins and then underwent a stress test on December 15. This was read as normal, with a inferior attenuation artifact. The patient does have a history of atrial fibrillation, flutter. She underwent ablation several years ago. She describes episodes of dyspnea with chest pressure which are not clearly highly exertional in trigger. The question of paroxysmal tachycardia from atrial flutter is also considered. She was treated by Dr. Peres for her SVT in his cell by Dr. Marshall. We will message both of them to see if they want to set her up with some type of short term rental coordinator. Status at Discharge Cognitive/behavioral status at discharge: oriented Functional status at discharge: independent ambulation Overall status at discharge: patient is back to baseline Time Spent with Patient Time spent: Greater than 30 minutes Exam Vital Signs (past 8 hours): - 12/15/24 08:00 12/15/24 08:00 12/15/24 12:00 Temperature 97.1 F L 96.9 F L Pulse Rate 78 94 H Respiratory Rate 14 17 Blood Pressure 153/85 H 144/80 H Pulse Oximetry 97 98 Oxygen Delivery Method Room Air Oxygen Flow Rate 0 0 Oxygen Delivery Method Room Air Oxygen Flow Rate 0 Narrative Exam Narrative: NAD, alert and oriented. Fluent speech. Lungs are clear, normal rate and effort. Heart is regular, no murmur gallop or rub. Abdomen is soft, non distended. Extremities are free of edema. Objective ECG Impression: Normal sinus rhythm Left bundle branch block Imaging Chest x-ray: Radiologist's impression: No acute cardiopulmonary abnormality is seen. Venous US: Radiologist's impression: No findings of lower extremity deep venous thrombosis. Complex hypoechoic fluid collection seen at the site of clinical concern, without abnormal vascularity. Hematoma is suspected. A complex, hypoechoic fluid collection can be seen within the medial/posterior aspect of the left knee, measuring 5.6 x 2.2 x 2.6 cm. No abnormal vascularity can be seen. Labs 12/14/24 13:31 12/14/24 13:31 Labs: Laboratory Results - last 24 hr 12/14/24 12/14/24 12/14/24 13:31 15:35 18:19 WBC 8.4 RBC 4.00 Hgb 9.4 L Hct 29.0 L MCV 72.5 L MCH 23.6 L MCHC 32.5 RDW 16.8 H Plt Count 525 H Neut % (Auto) 73.8 Lymph % (Auto) 12.9 L Sutton % (Auto) 7.5 Eos % (Auto) 4.7 H Baso % (Auto) 1.1 Neut # (Auto) 6200 Lymph # (Auto) 1100 Sutton # (Auto) 600 Eos # (Auto) 400 Baso # (Auto) 100 PT 10.6 INR 0.9 APTT 34 Sodium 135 L Potassium 3.9 Chloride 98 Carbon Dioxide 28 BUN 25 H Creatinine 1.15 H Estimated GFR 52 L BUN/Creatinine Ratio 21.7 Glucose 100 Calcium 8.6 Magnesium 2.7 H Iron 35 L TIBC 336 % Saturation 10 L Transferrin 316 Ferritin 6 L Total Bilirubin 0.5 AST 35 ALT 37 H Alkaline Phosphatase 88 Total Creatine Kinase 146 H Troponin I < 0.012 < 0.012 < 0.012 NT-Pro-B Natriuret Pep 145 H Total Protein 7.4 Albumin 4.2 Globulin 3.2 Albumin/Globulin Ratio 1.3 Triglycerides 77 Cholesterol 190 LDL Cholesterol, Calc 108 H HDL Cholesterol 67 H Lipase 118 12/15/24 02:14 WBC RBC Hgb Hct MCV MCH MCHC RDW Plt Count Neut % (Auto) Lymph % (Auto) Sutton % (Auto) Eos % (Auto) Baso % (Auto) Neut # (Auto) Lymph # (Auto) Sutton # (Auto) Eos # (Auto) Baso # (Auto) PT INR APTT Sodium Potassium Chloride Carbon Dioxide BUN Creatinine Estimated GFR BUN/Creatinine Ratio Glucose Calcium Magnesium Iron TIBC % Saturation Transferrin Ferritin Total Bilirubin AST ALT Alkaline Phosphatase Total Creatine Kinase Troponin I < 0.012 NT-Pro-B Natriuret Pep Total Protein Albumin Globulin Albumin/Globulin Ratio Triglycerides Cholesterol LDL Cholesterol, Calc HDL Cholesterol Lipase [facility] Medical History Allergic rhinitis CAD (coronary artery disease) GERD (gastroesophageal reflux disease) Atrial flutter HLD (hyperlipidemia) Chronic bundle branch block SVT (supraventricular tachycardia) Hypertension Surgical History Hx of thyroidectomy History of hysterectomy History of cardiac cath Social History household members: spouse Smoking Status: Never smoker alcohol intake: never Discharge Assessment & Plan Assessment and Plan Assessment: 1. Exertional chest pain. Present on admission and resolved. She did have a low risk stress test. Her LVEF was normal on that study. 2. Microcytic anemia. Obtain iron studies, monitor stool guaiacs. Hemoglobin 9.4. 3. History of paroxysmal atrial flutter, status post ablation. Present on admission and stable. 4. Hypertension. Present on admission and stable. 5. Hyperlipidemia. Present on admission and stable. 6. Hypothyroidism. Present on admission and stable. Plan of Treatment: Low risk stress test, stable for discharge. Close follow up with PCP, monitor hemoglobin and consider iron studies. I also sent electronic message to doctors Joanna and Larisa of Cardiology at [facility] to see if they want to do a Zio patch Holter monitor to rule out intermittent PAF. Discharge Plan Discharge Plan Patient Disposition: Home Provider Discharge Comment: Stable for discharge home, recommended close cardiology follow up with Dr. Marshall. Discharge orders & Medications Prescriptions: Continued diltiazem HCl 120 mg capsule,extended release 24hr 120 mg PO BEDTIME hydralazine 25 mg tablet 25 mg PO TID Patient Comments: Take 1 tablet by mouth twice a day losartan-hydrochlorothiazide 100-25 mg tablet 1 tab PO DAILY famotidine 20 mg tablet 20 mg PO BEDTIME Patient Comments: Take 1 tablet every night rosuvastatin [Crestor] 5 mg tablet 5 mg PO BEDTIME Patient Comments: every evening omeprazole 20 mg Capsule,Delayed Release(Dr/Ec) 20 mg PO BID levothyroxine [Synthroid] 112 mcg tablet 112 mcg PO DAILY Rx Instructions: can't substitute with generic Follow up/Referrals: Jose Manuel Winters MD [Primary Care Provider] - Diet/Activity/Treatments Diet: Regular Activity: As toerated. Visit Report/Discharge Packet Instructions: DI for Atrial Flutter, DI for Atypical Chest Pain Stand Alone Forms: Patient Portal/API Discharge Data Primary Care Provider: Jose Manuel Winters Attending Provider: Deuce Valles V Admit Date/Time: 12/14/24 17:56 Quality VTE Deep Vein Thrombosis/Pulmonary Embolism Present on Admission: No
--- NOTE | 2024-12-15 17:31 | DI.NM.S_ITS ---
DATE OF SERVICE: 12/14/2024 NUCLEAR CARDIOLOGY MYOCARDIAL PERFUSION STUDY PROCEDURE PERFORMED: Pharmacologic vasodilator stress and rest myocardial perfusion imaging with gating to assess ejection fraction and regional wall motion. ORDERING PROVIDER: Deuce Valles MD. INDICATIONS: The patient is a 69-year-old female admitted with escalating exertional chest discomfort and anemia. CARDIAC STRESS: Per protocol, 0.4 mg of regadenoson was infused with a normal hemodynamic response with an accentuated increase in her heart rate with a resting heart rate of 77 bpm increasing to a maximum of 130 bpm (86% of her predicted maximum). She had no chest discomfort but reported mild dyspnea and abdominal pain. Her resting ECG shows right axis deviation with a nonspecific intraventricular conduction delay with associated ST-segment abnormalities. With stress, the ST-segment abnormalities become accentuated but remain nonspecific because of the baseline abnormality. There were no arrhythmias. Per protocol, 24.5 millicuries of technetium-99m Myoview was injected and she was imaged 10 minutes later using a gated SPECT acquisition protocol. Earlier in the day while at rest, she had been injected with 10.4 millicuries of technetium-99m Myoview and was imaged 35 minutes later, again using a gated SPECT acquisition protocol. FINDINGS: 1. Raw data. There is fair myocardial tracer uptake with prominent breast shadows that clearly produce significant attenuation artifact. While the lung/heart ratio is elevated at 0.53, which can be a sign of pulmonary congestion, it is not evident visually and clinical correlation is recommended. The TID ratio is normal at 0.90. 2. Quantitated gated SPECT: Post-stress ejection fraction is 81% without any focal wall motion abnormality, and specifically the distal inferior wall has brisk contractility. The end-diastolic volume is normal at 84 mL. The resting gated images were unable to be obtained. 3. Myocardial perfusion imaging: Post-stress supine images show a fairly normal myocardial perfusion pattern except for a mild defect in the very distal inferior wall and apex in a pattern consistent with breast attenuation artifact. Unfortunately, the patient was unable to lie prone to assess for this. The resting images show an identical perfusion pattern without any improvement in the inferoapical defect. IMPRESSION: 1. Probable normal myocardial perfusion study for ischemia. 2. Subtle, fixed distal inferior and apical defect, likely breast attenuation artifact. While a previous nontransmural infarction cannot be entirely excluded, the absence of any wall motion abnormality mitigates against this. There is no evidence for any significant myocardial ischemia. 3. Normal left ventricular systolic function without any focal wall motion abnormality on the post-stress images. While the lung/heart ratio is elevated, which can be a sign of pulmonary congestion, this is not evident visually and clinical correlation is needed. 4. No angina with pharmacologic dilator stress. Her resting ECG shows a right axis deviation with a nonspecific intraventricular conduction delay with accentuation of baseline ST-segment abnormalities with stress, but is nonspecific for ischemia. She had a robust heart rate response to stress but here were no arrhythmias. Kajal Sumner - RS/fn/SKB doc#: [id number]/job#: [id number] dd: 12/15/2024 12:57:00 dt: 12/15/2024 13:13:00 DICTATING /COPIES TO: Heladio Menchaca MD; Deuce Valles MD COPIES MNE: JUSTEN;
== END 2024-12-15 14:22 | disposition home or self-care (01) ==
LOC: ED 16:53 → AC 17:56
PROVIDERS: Admitting Provider Internal Medicine; Emergency Provider Emergency Medicine; Family Provider Family Medicine; PCP Internal Medicine; Referring Provider Emergency Medicine; Visit Provider Internal Medicine
DX: R07.9 Chest pain, unspecified (principal); R06.02 Shortness of breath; E03.9 Hypothyroidism, unspecified; E78.5 Hyperlipidemia, unspecified; D50.9 Iron deficiency anemia, unspecified; I10 Essential (primary) hypertension; R05.1 Acute cough
CPT/HCPCS: 0241U; 36415; 71045; 78452; 80053; 80061; 82550; 82728; 83540; 83550; 83690; 83735; 83880; 84484; 85025; 85610; 85730; 93005; 93017; 93306; 99284; G0378; A9270; A9502; J2785

== ENCOUNTER → 2025-01-17 08:16 | Outpatient (CLI) | payer MEDICARE, OTHER, SELFPAY ==
[2024-12-14 18:00] VITALS: BMI 30.2
--- NOTE | 2025-01-17 08:21 | DI.RAD.S_ITS ---
PROCEDURE: XR CERVICAL SPINE 2V OR 3V INDICATIONS: Pain TECHNIQUE: 3 view(s) of the cervical spine were acquired. COMPARISON: None. FINDINGS: Bones: No fractures or dislocations to the T1 level. The lateral masses of C1 appear intact on the odontoid view. No suspicious bony lesions. Focal degenerative change is seen involving the C1-C2 interface anteriorly. There is moderate disc space narrowing at C4-C5, with moderate to severe disc space narrowing at C5-C6 and C6-C7. Endplate irregularity and sclerosis can be seen, which are worst at C5-C6. Partially bridging anterior osteophytes are seen inferiorly, which are worst at C6-C7. Soft tissues: No prevertebral soft tissue swelling. Atherosclerotic calcification of the aortic arch is noted. The visualized lung demonstrates an unremarkable appearance. IMPRESSION: Cervical spine degenerative changes are seen by plain film, which are worst at C6-C7. If it would be helpful for clinical management decision making, please consider a dedicated cervical spine MRI for further evaluation (assuming that there is no contraindication). Dictated by: Jean Johnson M.D. on 01/17/2025 at 8:00 Approved by: Jean Johnson M.D. on 01/17/2025 at 8:01
== END ==
LOC: RAD 08:20
PROVIDERS: Family Provider Family Medicine; PCP Internal Medicine; Referring Provider Physician Assistant; Visit Provider Physician Assistant
DX: M47.22 Other spondylosis with radiculopathy, cervical region (principal)
CPT/HCPCS: 72040

== ENCOUNTER 2025-01-22 07:01 | Emergency (ER) | payer MEDICARE, OTHER, SELFPAY ==
[2024-12-14 18:00] VITALS: BMI 30.2
[2025-01-22] VITALS (7 sets, daily range): BP systolic 149–190; BP diastolic 72–87; PULSE 67–95; RESP 16–18; TEMP 36.6; O2SAT 98–100; BMI 30.2
--- NOTE | 2025-01-22 07:16 | ED_ITS ---
HPI - Headache General Chief Complaint: Headache Stated Complaint: Neck and Head pain Time Seen by Provider: 01/22/25 07:15 History of Present Illness HPI Narrative: 69-year-old female with a past medical history of AFib status post ablation taking diltiazem, hypothyroidism, hyperlipidemia, comes into the ED from home for evaluation of headache and neck pain. She states that this has been ongoing and persistent since November 2024. She states that this all started when she fell and hit her head in October and was diagnosed with a concussion. She states that her headache is always worse at night whenever she lays down, she states it is to the right side of her head. She describes it is sharp and shooting as well as a pressure, she denies any visual changes. She denies any other symptoms such as chest pain shortness of breath fever chills nausea vomiting abdominal pain or any other GI/ symptoms time. She states that she went to the walk-in clinic a few days ago had a injection of Toradol which helped a little bit but had persistent symptoms therefore decided come into the ED for further evaluation treatment. On exam patient without any focal deficits NIH of 0 Related Data Home Medications Medication Instructions Recorded Confirmed omeprazole 20 mg capsule,delayed 20 mg PO BID 04/09/19 12/14/24 release famotidine 20 mg tablet 20 mg PO BEDTIME 10/23/22 12/14/24 hydralazine 25 mg tablet 25 mg PO TID 10/23/22 12/14/24 losartan 100 1 tab PO DAILY 10/23/22 12/14/24 mg-hydrochlorothiazide 25 mg tablet rosuvastatin 5 mg tablet (Crestor) 5 mg PO BEDTIME 10/23/22 12/14/24 diltiazem HCl 120 mg 120 mg PO BEDTIME 11/28/24 12/14/24 capsule,extended release 24 hr levothyroxine 112 mcg tablet 112 mcg PO DAILY 12/14/24 12/14/24 (Synthroid) Previous Rx's Medication Instructions Recorded cyclobenzaprine 10 mg tablet 10 mg PO BEDTIME #30 tabs 01/17/25 diazepam 2 mg tablet (Valium) 2 mg PO BEDTIME PRN muscle spasm 5 01/22/25 days #5 tabs methylprednisolone 4 mg tablets in See Rx Instructions PO .COMPLEX 01/22/25 a dose pack (Medrol (Kaleb)) #21 ea Allergies Allergy/AdvReac Type Severity Reaction Status Date / Time felodipine Allergy Intermediate Feet Verified 01/17/25 07:53 swelling dexamethasone AdvReac Severe Rash Verified 01/17/25 07:53 Sulfa (Sulfonamide AdvReac Severe Irritable Verified 01/17/25 07:53 Antibiotics) lisinopril AdvReac Cough Verified 01/17/25 07:53 bowel prep AdvReac Severe Vomiting Uncoded 01/17/25 07:53 Review of Systems Review of Systems Narrative: General: Denies fever, chills, weight loss HEENT: Positive right-sided neck pain and headache, denied eye drainage, eye irritation, head trauma, sore throat, voice change Cardiovascular: Denies any chest pain, palpitations, tachycardia Respiratory: Denies any shortness of breath, cough, wheeze, stridor GI/: Denies any abdominal pain, nausea, vomiting, diarrhea, bright red blood per rectum, melanotic stools, urinary frequency, urinary retention, dysuria, hematuria MSK: Denies any joint pain, muscle pains, swelling Skin: Denies any rashes, lesions, discoloration Neuro: Denies any headache, lightheadedness, dizziness, fainting, weakness Psych: Denies SI/HI Patient History Medical History (Updated 01/22/25 @ 07:26 by Joe Carbajal DO) Cervical radiculitis Allergic rhinitis CAD (coronary artery disease) GERD (gastroesophageal reflux disease) Atrial flutter HLD (hyperlipidemia) Chronic bundle branch block SVT (supraventricular tachycardia) Hypertension Surgical History Hx of thyroidectomy History of hysterectomy History of cardiac cath Social History household members: spouse alcohol intake: never alcohol intake frequency: holidays/special occasions only Exam Narrative Exam Narrative: General: Cooperative, well-developed, not in acute distress HEENT: Normocephalic, atraumatic, PERRLA, normal sclera, eyelids normal, Neck: Active full range of motion, atraumatic, there is tenderness to palpation of the paraspinal muscles of the right side of the neck, Chest: Normal to inspection, negative crepitus, no overlying erythema ecchymosis Respiratory: Normal respiratory effort, not in acute respiratory distress, clear to auscultation bilaterally negative cough, wheeze, tachypnea, rhonchi, rales Cardiology: Regular rate rhythm negative gallop, murmur, rubs GI/: No tenderness to palpation, soft, non rigid, normal to inspection, exam deferred MSK: Full active range of motion in all 4 extremities, atraumatic, no tenderness to palpation of any bony prominences Skin: No rashes or lesions noted Neuro: Alert awake oriented x3, moves all 4 extremities spontaneously, cranial nerves intact, able to answer all questions appropriately follows commands appropriately Psych: Cooperative, negative suicidal or homicidal ideations Initial Vital Signs Initial Vital Signs: Vital Signs Pulse Rate 95 H 01/22/25 07:05 Blood Pressure 190/87 H 01/22/25 07:05 Pulse Oximetry 99 01/22/25 07:05 Course Orders Ordered: ED Orders 01/22/25 07:19 CT cervical spine wo con Stat 01/22/25 07:21 CT head/brain wo con Stat Discontinued Medications Acetaminophen (Acetaminophen 325 Mg Tablet) 650 mg PO NOW ONE Stop: 01/22/25 07:20 Last Admin: 01/22/25 07:39 Dose: 650 mg Diazepam (Diazepam 2 Mg Tablet) 2 mg PO NOW ONE Stop: 01/22/25 07:20 Last Admin: 01/22/25 07:38 Dose: 2 mg Diphenhydramine HCl (Diphenhydramine 25 Mg Tablet) 25 mg PO NOW ONE Stop: 01/22/25 07:20 Last Admin: 01/22/25 07:38 Dose: 25 mg Vital Signs Vital signs: Vital Signs - 8 hr 01/22/25 07:05 01/22/25 07:05 01/22/25 07:09 Temperature 97.8 F Pulse Rate 95 H 74 Respiratory Rate 18 Blood Pressure 190/87 H 190/87 H Pulse Oximetry 99 100 Oxygen Delivery Method Room Air 01/22/25 07:30 01/22/25 07:31 01/22/25 07:31 Temperature Pulse Rate 75 72 Respiratory Rate Blood Pressure 150/72 H Pulse Oximetry 98 99 Oxygen Delivery Method 01/22/25 07:44 01/22/25 07:44 Temperature Pulse Rate 91 H Respiratory Rate Blood Pressure 177/75 H Pulse Oximetry 99 Oxygen Delivery Method MDM - Headache Differential Diagnosis Differential diagnosis: Likely migraine, tension headache, subarachnoid hemorrhage, headache and other (Cervical neck strain) Imaging Data CT scan - head: Radiologist's Impression: [address] [address] [address] Scan Report Signed Patient: Kajal Sumner MR#: [id number] : 1955 Acct:[id number] Age/Sex: 69 / F Date of Service: 01/22/25 Loc: ED Accession Number: [id number] Procedure: CT head/brain wo con Ordering Provider: Joe Carbajal D.O. PROCEDURE: CT HEAD/BRAIN WO CON INDICATIONS: right sided headache TECHNIQUE: Noncontrast 4.5 mm thick angled axial sections acquired from the foramen magnum to the vertex, with coronal and sagittal reformats. For radiation dose reduction, the following was used: automated exposure control, adjustment of mA and/or kV according to patient size. COMPARISON: [facility], CT, CT HEAD/BRAIN WO CON, 03/30/2024, 8:34. FINDINGS: Image quality: Diagnostic. CSF spaces: Basal cisterns are patent. No extra-axial fluid collections. The ventricles are symmetric in size and shape. Brain: No intracranial bleeds or mass effect. There is cerebral volume loss, with resultant ventricular and sulcal prominence. There are periventricular and deep white matter chronic small vessel ischemic changes. There is intracranial internal carotid artery atherosclerosis. Skull and face: Calvarium and visualized facial bones appear intact, without suspicious lesions. Sinuses: Visualized sinuses and mastoids are clear. IMPRESSION: No acute intracranial pathology. CT - cervical spine: Radiologist's Impression: [address] [address] [address] Scan Report Signed Patient: Kajal Sumner MR#: [id number] : 1955 Acct:[id number] Age/Sex: 69 / F Date of Service: 01/22/25 Loc: ED Accession Number: [id number] Procedure: CT cervical spine wo con Ordering Provider: Joe Carbajal D.O. PROCEDURE: CT CERVICAL SPINE WO CON INDICATIONS: right sided neck pain TECHNIQUE: Noncontrast 3 mm thick sections acquired from the skull base to the T4 level. Sagittal and coronal reformats were then constructed. For radiation dose reduction, the following was used: automated exposure control, adjustment of mA and/or kV according to patient size. COMPARISON: None. FINDINGS: Image quality: Excellent. Bones: No fractures or dislocations. Visualized superior ribs are intact. Soft tissues: Prevertebral soft tissues are normal in thickness. No paravertebral hematomas. No apical pneumothoraces. IMPRESSION: No displaced fracture or traumatic subluxation. MDM Narrative Medical decision making narrative: 69-year-old female with a past medical history of AFib status post ablation on Cardizem, hypothyroidism, hyperlipidemia, comes into the ED from home for evaluation of headache for right-sided along with right-sided neck pain, she states this has been ongoing since November of 2024 after she fell and hit her head in October of 2024. She states that she has been having these intermittent sharp shooting and dull headaches of the right side of her head and neck, states that she gets mild relief with [id number] medication but due to persistent symptoms decided come into the ED for further evaluation treatment. On exam patient with tenderness to palpation of the paraspinal muscles on the right side of the neck but no tenderness to palpation of midline cervical spine, she has neurovascularly intact bilateral upper and lower extremities. There is no gross deformities on the scalp or head. She is NIH of [address]. Patient had CT scan of her head and neck performed here in the emergency department which did not show any signs of acute traumatic or intracranial abnormalities. Patient was given symptomatic relief with Valium, Benadryl, Tylenol. She will be sent home with symptomatic relief of her symptoms and instructed follow up with her primary care doctor in outpatient setting, she verbalized understanding and was given strict return precautions patient will be sent home with follow up with primary care. Patient states that she has tolerated prednisone in the past. Discharge Plan Departure Patient Disposition: Home Clinical Impression: Headache, Neck muscle strain Instructions: DI for Headache Activity Restrictions/Additional Instructions: Please follow up with your primary care doctor Please read the discharge instructions sheet carefully and bring all papers to all doctor follow-up visits, as it may contain information that your doctor may want to see. Disease processes change and evolve, if your symptoms worsen or if you develop any new symptoms that are concerning to you please return for evaluation. Your evaluation today does not show any evidence of any life- threatening/serious illnesses requiring admission to the hospital or surgery. Please follow-up with your doctor for re-evaluation in approximately 1 day. Seek immediate medical attention for any worrisome symptoms. *If you do not have a primary care provider please contact the [facility] Resource line at [phone]. They will ask some questions about your medical history and help get you set up with a doctor in the community. Prescriptions: New diazepam [Valium] 2 mg tablet 2 mg PO BEDTIME PRN (Reason: muscle spasm) 5 Days Qty: 5 0RF methylprednisolone [Medrol (Kaleb)] 4 mg tablets,dose pack See Rx Instructions .ROUTE .COMPLEX Qty: 21 0RF Rx Instructions: for 6 days No Action diltiazem HCl 120 mg capsule,extended release 24hr 120 mg PO BEDTIME cyclobenzaprine 10 mg tablet 10 mg PO BEDTIME Qty: 30 0RF hydralazine 25 mg tablet 25 mg PO TID Patient Comments: Take 1 tablet by mouth twice a day losartan-hydrochlorothiazide 100-25 mg tablet 1 tab PO DAILY famotidine 20 mg tablet 20 mg PO BEDTIME Patient Comments: Take 1 tablet every night rosuvastatin [Crestor] 5 mg tablet 5 mg PO BEDTIME Patient Comments: every evening omeprazole 20 mg Capsule,Delayed Release(Dr/Ec) 20 mg PO BID levothyroxine [Synthroid] 112 mcg tablet 112 mcg PO DAILY Rx Instructions: can't substitute with generic Referrals: Jose Manuel Winters MD [Primary Care Provider] - Stand Alone Forms: Patient Portal/API/Survey
--- NOTE | 2025-01-22 07:19 | DI.CT.S_ITS ---
PROCEDURE: CT CERVICAL SPINE WO CON INDICATIONS: right sided neck pain TECHNIQUE: Noncontrast 3 mm thick sections acquired from the skull base to the T4 level. Sagittal and coronal reformats were then constructed. For radiation dose reduction, the following was used: automated exposure control, adjustment of mA and/or kV according to patient size. COMPARISON: None. FINDINGS: Image quality: Excellent. Bones: No fractures or dislocations. Visualized superior ribs are intact. Soft tissues: Prevertebral soft tissues are normal in thickness. No paravertebral hematomas. No apical pneumothoraces. IMPRESSION: No displaced fracture or traumatic subluxation. Dictated by: Andrey Melvin M.D. on 01/22/2025 at 7:53 Approved by: Andrey Melvin M.D. on 01/22/2025 at 7:57
--- NOTE | 2025-01-22 07:21 | DI.CT.S_ITS ---
PROCEDURE: CT HEAD/BRAIN WO CON INDICATIONS: right sided headache TECHNIQUE: Noncontrast 4.5 mm thick angled axial sections acquired from the foramen magnum to the vertex, with coronal and sagittal reformats. For radiation dose reduction, the following was used: automated exposure control, adjustment of mA and/or kV according to patient size. COMPARISON: [facility], CT, CT HEAD/BRAIN WO CON, 03/30/2024, 8:34. FINDINGS: Image quality: Diagnostic. CSF spaces: Basal cisterns are patent. No extra-axial fluid collections. The ventricles are symmetric in size and shape. Brain: No intracranial bleeds or mass effect. There is cerebral volume loss, with resultant ventricular and sulcal prominence. There are periventricular and deep white matter chronic small vessel ischemic changes. There is intracranial internal carotid artery atherosclerosis. Skull and face: Calvarium and visualized facial bones appear intact, without suspicious lesions. Sinuses: Visualized sinuses and mastoids are clear. IMPRESSION: No acute intracranial pathology. Dictated by: Andrey Melvni M.D. on 01/22/2025 at 7:59 Approved by: Andrey Melvin M.D. on 01/22/2025 at 8:02
[2025-01-22] MEDS: diphenhydrAMINE 25 MG TABLET PO (07:38)
[2025-01-22] MEDS: diazePAM 2 MG TABLET PO (07:38)
[2025-01-22] MEDS: ACETAMINOPHEN 325 MG TABLET 650 MG PO (07:39)
== END 2025-01-22 08:23 | disposition home or self-care (01) ==
PROVIDERS: Emergency Provider Student in an Organized Health Care Education/Training Program; Family Provider Family Medicine; PCP Internal Medicine
DX: R51.9 Headache, unspecified (principal); S16.1XXA Strain of muscle, fascia and tendon at neck level, initial encounter
CPT/HCPCS: 70450; 72125; 99283; 99284

== ENCOUNTER → 2025-03-16 19:12 | Outpatient (CLI) | payer MEDICARE, OTHER, SELFPAY ==
[2024-12-14 18:00] VITALS: BMI 30.2
--- NOTE | 2025-03-16 20:00 | DI.MRI.S_ITS ---
PROCEDURE: MR HEAD/BRAIN WO CON INDICATIONS: Chronic headaches TECHNIQUE: Non-contrast axial T1 spin echo, axial T2 fast spin echo, sagittal and axial FLAIR, coronal T2 fast spin echo, axial gradient echo, axial diffusion and ADC through the brain. COMPARISON: None. FINDINGS: Image quality: Excellent. CSF spaces: Ventricles appear symmetric in size and shape. Basal cisterns are patent. No extra-axial fluid collections. Brain: No intracranial bleeds or mass effects. There is cerebral volume loss for age. There are periventricular and deep white matter chronic small vessel ischemic changes. Brainstem appears normal. Diffusion-weighted images show no acute infarct. No chronic ischemic insults. Normal intravascular flow voids are present. Skull and face: Calvarial bone marrow is normal in signal. Orbits are normal. Sinuses: Sinuses and mastoids are clear. IMPRESSION: No imaging explanation is found for this patient's presenting symptoms. To the limits of this noncontrast study, no findings of intracranial masses or mass effect can be seen. Dictated by: Jean Johnson M.D. on 03/17/2025 at 10:34 Approved by: Jean Johnson M.D. on 03/17/2025 at 10:35
== END ==
LOC: MRI 19:15
PROVIDERS: PCP Family Medicine; Referring Provider Family Medicine; Visit Provider Family Medicine
DX: R51.9 Headache, unspecified (principal); G89.29 Other chronic pain
CPT/HCPCS: 70551

== ENCOUNTER → 2025-03-20 16:37 | Outpatient (CLI) | payer MEDICARE, OTHER, SELFPAY ==
[2024-12-14 18:00] VITALS: BMI 30.2
--- NOTE | 2025-03-20 16:38 | DI.MRI.S_ITS ---
PROCEDURE: MR CERVICAL SPINE WO CON INDICATIONS: HYPERREFLEXIA TECHNIQUE: Noncontrast sagittal T1 spin echo and T2 fast spin echo, sagittal STIR, foraminal oblique sagittal T2 fast spin echo, and axial gradient echo or T2 fast spin echo through the cervical spine. COMPARISON: [facility], MR, MR CERVICAL SPINE WITHOUT CONTRAST, 10/26/2017, 8:38. [facility], CT, CT CERVICAL SPINE WO CON, 01/22/2025, 7:42. FINDINGS: Image quality: Excellent. Alignment and Curvature: There is trace retrolisthesis of C4 on C5, C5 on C6 as well as trace anterolisthesis of C7 on T1, T2 on T3. Bone Marrow: Marrow demonstrates normal overall signal. Spinal Cord: Visualized spinal cord has normal size and signal. No cerebellar tonsillar herniation. Paraspinous Soft Tissues: No paravertebral masses. Prevertebral soft tissues are normal in thickness. Discs: Multilevel moderate to severe disc desiccation most severe at C5-6, C6-7. C2-C3: No disc bulge, spinal stenosis or foraminal narrowing. No interval change. C3-C4: Mild disc bulge with posterior central protrusion. Moderate to severe spinal stenosis, slightly progressive. Moderate bilateral foraminal narrowing, left greater than right, progressive with uncovertebral hypertrophy. C4-C5: Mild disc bulge with moderate spinal stenosis slightly progressive. Mild bilateral foraminal narrowing with uncovertebral hypertrophy, stable. C5-C6: Mild disc bulge with moderate spinal stenosis. Moderate to severe left and [id number] right foraminal narrowing slightly progressive with uncovertebral hypertrophy. C6-C7: Mild disc bulge with avmq-lk-prsfkqqd spinal stenosis. Moderate to severe left and [id number] right foraminal narrowing with uncovertebral hypertrophy, progressive. C7-T1: Mild disc bulge without spinal stenosis. No foraminal narrowing. IMPRESSION: Disc bulges, spinal stenosis and foraminal narrowing demonstrating interval progression as above. Dictated by: Rina Beavers M.D. on 03/23/2025 at 16:03 Approved by: Rina Beavers M.D. on 03/23/2025 at 16:07
== END ==
LOC: MRI 16:38
PROVIDERS: PCP Family Medicine; Referring Provider Family Medicine; Visit Provider Anesthesiology
DX: M50.31 Other cervical disc degeneration, high cervical region (principal); M48.02 Spinal stenosis, cervical region; R29.2 Abnormal reflex
CPT/HCPCS: 72141

== ENCOUNTER 2025-03-24 18:48 | Emergency (ER) | payer MEDICARE, OTHER, SELFPAY ==
[2024-12-14 18:00] VITALS: BMI 30.2
[2025-03-24 19:57] VITALS: BP 151/82; PULSE 83; RESP 17; TEMP 36.6; O2SAT 97; BMI 30.2
--- NOTE | 2025-03-24 20:02 | DI.RAD.S_ITS ---
PROCEDURE: XR KNEE LT 3V INDICATIONS: twisted last week, tenderess medial to patella, nonweightbea TECHNIQUE: 3 views of the knee were acquired. COMPARISON: None. FINDINGS: Bones: No fractures or dislocations. No suspicious bony lesions. Mild tricompartmental degenerative changes. Soft tissues: Large joint effusion. No suspicious soft tissue calcifications. IMPRESSION: No acute osseous abnormalities. Mild tricompartmental degenerative changes. Large joint effusion. If there is high clinical concern for internal soft tissue derangement, consider further evaluation with nonemergent/outpatient MRI. Dictated by: De Saleh M.D. on 03/24/2025 at 20:41 Approved by: De Saleh M.D. on 03/24/2025 at 20:42
[2025-03-24 22:24] VITALS: BP 152/77; PULSE 64; RESP 14; O2SAT 98
--- NOTE | 2025-03-25 01:10 | ED.LOWEXIN ---
HPI - Extremity Injury (Lower) General Chief Complaint: Extremity Injury, Lower Stated Complaint: pain going down left knee Time Seen by Provider: 03/25/25 00:43 Source: patient Mode of arrival: Wheelchair History of Present Illness HPI Narrative: 70-year-old woman with a history of arthritis, back pain with chronic right hip and right knee pain, hypertension, reflux, hypothyroidism, hyperlipidemia was walking and favoring her right side as she has been for quite awhile ended up landing on her left knee planted firmly with a slight twist and has had increased pain and swelling in the left the. Pain is getting significantly worse and today when she stepped on the left knee almost felt that it seemed to give out on her. She comes in for further evaluation. Related Data Home Medications ?Medication ?Instructions ?Recorded ?Confirmed omeprazole 20 mg capsule,delayed 20 mg PO BID 04/09/19 03/12/25 release famotidine 20 mg tablet 20 mg PO BEDTIME 10/23/22 03/12/25 hydralazine 25 mg tablet 25 mg PO TID 10/23/22 03/12/25 losartan 100 1 tab PO DAILY 10/23/22 03/12/25 mg-hydrochlorothiazide 25 mg tablet rosuvastatin 5 mg tablet (Crestor) 5 mg PO BEDTIME 10/23/22 03/12/25 levothyroxine 112 mcg tablet 112 mcg PO DAILY 12/14/24 03/12/25 (Synthroid) ferrous sulfate 325 mg (65 mg 325 mg PO BID 03/12/25 03/12/25 iron) tablet Previous Rx's ?Medication ?Instructions ?Recorded cyclobenzaprine 10 mg tablet 10 mg PO BEDTIME #30 tabs 01/17/25 diltiazem HCl 180 mg 180 mg PO DAILY #30 caps 03/12/25 capsule,extended release 24 hr (Cardizem CD) fluticasone propionate 50 1 spray intranasal DAILY #16 grams 03/12/25 mcg/actuation nasal spray,suspension (Flonase Allergy Relief) Allergies Allergy/AdvReac Type Severity Reaction Status Date / Time felodipine Allergy Intermediate Feet Verified 03/12/25 15:49 swelling dexamethasone AdvReac Severe Rash Verified 03/12/25 15:49 Sulfa (Sulfonamide AdvReac Severe Irritable Verified 03/12/25 15:49 Antibiotics) lisinopril AdvReac Cough Verified 03/12/25 15:49 Review of Systems Review of Systems Narrative: Pertinent positive and negative findings as per HPI Patient History Medical History (Updated 03/25/25 @ 01:18 by Arianne Aguilar MD) Cervical radiculitis Allergic rhinitis CAD (coronary artery disease) GERD (gastroesophageal reflux disease) Atrial flutter HLD (hyperlipidemia) Chronic bundle branch block SVT (supraventricular tachycardia) Hypertension Surgical History Hx of thyroidectomy History of hysterectomy History of cardiac cath Social History household members: spouse alcohol intake: never alcohol intake frequency: holidays/special occasions only Exam Initial Vital Signs Initial Vital Signs: Vital Signs Temperature 97.9 F 03/24/25 19:57 Pulse Rate 83 03/24/25 19:57 Respiratory Rate 17 03/24/25 19:57 Blood Pressure 151/82 H 03/24/25 19:57 Pulse Oximetry 97 03/24/25 19:57 Oxygen Delivery Method Room Air 03/24/25 19:57 General: Alert appropriate in no acute distress Respiratory: Able to speak in full sentences, no obvious respiratory distress Skin: No obvious rashes, warm and dry Neurologic: Grossly intact no obvious asymmetries or abnormalities Psych: appropriate insight and affect, cooperative Extremity: Right leg baseline slightly more weak than the left. No significant joint effusion on the right side. On the left side, hip is not bothering her with internal or external rotation. Left knee does have moderate effusion she is quite tender of the popliteal fossa in the superior edge of the gastroc muscle without bruising or contusion appreciated. She is tender enough that it is difficult to fully evaluate ligaments and tendons. No sign of infection Course Orders Ordered: ED Orders 03/24/25 20:02 XR knee LT 3V Stat Vital Signs Vital signs: Vital Signs - 8 hr 03/24/25 19:57 03/24/25 22:24 Temperature 97.9 F Pulse Rate 83 64 Respiratory Rate 17 14 Blood Pressure 151/82 H 152/77 H Pulse Oximetry 97 98 Oxygen Delivery Method Room Air Room Air MDM - Extremity Injury (Lower) MDM Narrative Medical decision making narrative: 70-year-old woman with right leg weakness and pain favoring the left side and about a week ago injured the left knee and today slipped slightly again on the left knee with increasing pain. She has follow up appointment with her orthopedic surgeon on this Sunday regarding the right knee and leg pain. She comes in tonight because the pain in the left knee with the swelling is becoming unbearable. She has been using ibuprofen and Tylenol, ice and relaxing it. On exam she definitely has not effusion, no evidence of fractures on x-ray. Because she is so tender true joint stability is difficult to assess. She is placed in a left leg knee immobilizer and given a walker so that she does not cause more injury or exacerbate the already problematic right hip in the. We discussed pain control, importance of following up with Orthopedics and reasons to return to the emergency department. She is safe for discharge Discharge Plan Departure Patient Disposition: Home Clinical Impression: Effusion of knee joint, left Left knee sprain Qualifiers: Encounter type: initial encounter Involved ligament of knee: unspecified ligament Qualified Code(s): S83.92XA - Sprain of unspecified site of left knee, initial encounter Instructions: DI for Knee Sprain Activity Restrictions/Additional Instructions: Thank you for coming in today I am sorry that you are having so much difficulty with weakness in your right leg and now injuring your left knee. Fortunately the x-ray did not show that there were any fractures. It is swollen and tender enough that it is difficult to tell if there was any ligamentous injury. I have given you a knee immobilizer to help stability and pain control. I have also given you a walker, I think more bilateral support for both of your legs is going to provide better stability and make it less likely for you to injure 1 side over the other Using 400 mg of ibuprofen (2 [id number] pills) and 1 Tylenol every 6 hours can be very helpful in controlling pain. For severe pain you can use 400 mg of ibuprofen and 1 Percocet. Percocet is a narcotic and will cause constipation make sure that you are adding a stool softener Please keep your scheduled appointment with your orthopedic surgeon this Sunday. Once the swelling has gone down in your left knee it will need a more thorough physical exam and you may end up needing advanced imaging such as an MRI in the future for definitive diagnosis If you find that you are getting worse or develop any new symptoms, please feel free to return to the emergency department for further evaluation. Prescriptions: No Action cyclobenzaprine 10 mg tablet 10 mg PO BEDTIME Qty: 30 0RF ferrous sulfate 325 mg (65 mg iron) tablet 325 mg PO BID diltiazem HCl [Cardizem CD] 180 mg capsule,extended release 24hr 180 mg PO DAILY Qty: 30 3RF fluticasone propionate [Flonase Allergy Relief] 50 mcg/actuation spray,suspension 1 spray intranasal DAILY Qty: 16 3RF Rx Instructions: administer into each nostril hydralazine 25 mg tablet 25 mg PO TID Patient Comments: Take 1 tablet by mouth twice a day losartan-hydrochlorothiazide 100-25 mg tablet 1 tab PO DAILY famotidine 20 mg tablet 20 mg PO BEDTIME Patient Comments: Take 1 tablet every night rosuvastatin [Crestor] 5 mg tablet 5 mg PO BEDTIME Patient Comments: every evening omeprazole 20 mg Capsule,Delayed Release(Dr/Ec) 20 mg PO BID levothyroxine [Synthroid] 112 mcg tablet 112 mcg PO DAILY Rx Instructions: can't substitute with generic Referrals: Emily Wilson MD [Primary Care Provider, Family Practice] Stand Alone Forms: Patient Portal/API
[2025-03-25] MEDS: OXYCODONE/ACETAMINOPHEN 5/325 TABLET 1 TAB PO (01:17)
[2025-03-25] MEDS: OXYCODONE/APAP 5/325 PREPACK 1 BOTTLE MISC (01:17)
[2025-03-25 01:41] VITALS: BP 160/69; PULSE 79; RESP 17; O2SAT 98
== END 2025-03-25 01:35 | disposition home or self-care (01) ==
PROVIDERS: Emergency Provider Emergency Medicine; PCP Family Medicine
DX: S83.92XA Sprain of unspecified site of left knee, initial encounter (principal); M25.462 Effusion, left knee; X50.1XXA Overexertion from prolonged static or awkward postures, initial encounter
CPT/HCPCS: 73562; 99283

== ENCOUNTER → 2025-04-04 09:45 | Outpatient (CLI) | payer MEDICARE, OTHER, SELFPAY ==
[2024-12-14 18:00] VITALS: BMI 30.2
--- NOTE | 2025-04-04 09:47 | DI.MRI.S_ITS ---
PROCEDURE: MR KNEE LT WO CON INDICATIONS: INTERNAL DERANGEMENT OF LEFT KNEE TECHNIQUE: Noncontrast sagittal PD fast spin echo and T2 fast spin echo with fat saturation, sagittal 3-D FLASH with fat saturation; coronal T1 spin echo and PD fast spin echo with fat saturation, and axial PD fast spin echo with fat saturation through the knee. COMPARISON: [facility], CR, XR KNEE LT 3V, 03/24/2025, 20:05. FINDINGS: Image quality: Excellent. Menisci: There is linear oblique high T2 signal intensity traversing the peripheral 3rd of the medial meniscal body, demonstrating inferior articular surface extension, indicating oblique tearing. Vertically oriented linear high T2 signal intensity traverses the middle 3rd of the lateral meniscal body, demonstrating inferior articular surface extension, indicating vertical tearing. Cruciate ligaments: The anterior and posterior cruciate ligaments appear intact. Medial structures: The medial collateral ligament appears intact. Visualized portions of the pes anserinus tendons appear normal. Mild T2 signal elevation within the semimembranosus tendon at the tibial insertion site. No abnormal bursal fluid. Lateral structures: The lateral collateral ligament demonstrates mild T2 signal elevation at the femoral origin. The long and short heads of the biceps femoris tendon appear intact. The popliteus tendon appears normal. Iliotibial band appears normal. Anterior structures: The quadriceps and patellar tendons appear intact. Patellar alignment is normal. Lateral ventral trochlear prominence. Moderate edema in the superolateral aspect of the infrapatellar fat pad. Bones and cartilage: No bone marrow contusions or fractures. Moderate subchondral degenerative marrow edema within the patellar apex superiorly. Mild tricompartmental periarticular osteophyte formation. Moderate articular cartilage loss diffusely overlies the weight-bearing aspects of the medial femoral condyle and medial tibial plateau. Articular cartilage fibrillation overlies the medial and lateral patellar facets. Superimposed small region of high-grade articular cartilage loss overlies the patellar apex. Joint space: There is physiologic knee joint fluid. Small Hernández's cyst. There is 16 mm diameter ovoid high T2 intensity focus with mixed internal signal intensity interposed between the medial and lateral heads of the gastrocnemius muscles at the level of the knee joint. Normal appearing synovial plicae are incidentally noted. IMPRESSION: 1. Medial and lateral meniscal tearing. 2. Tricompartmental osteoarthritis with associated articular cartilage loss. 3. Low-grade lateral collateral ligament tear. 4. Complex cystic focus interposed between the medial and lateral heads of the gastrocnemius muscles, suggestive of a complex ganglion cyst. 5. Insertional tendinitis of the semimembranosus. 6. Findings consistent with lateral patellofemoral friction syndrome in the appropriate clinical setting. Dictated by: Gala Caicedo M.D. on 04/06/2025 at 12:02 Approved by: Gala Caicedo M.D. on 04/06/2025 at 12:06
== END ==
PROVIDERS: PCP Family Medicine; Referring Provider Student in an Organized Health Care Education/Training Program; Visit Provider Student in an Organized Health Care Education/Training Program
DX: S83.242A Other tear of medial meniscus, current injury, left knee, initial encounter (principal); S83.282A Other tear of lateral meniscus, current injury, left knee, initial encounter; S83.422A Sprain of lateral collateral ligament of left knee, initial encounter; M23.92 Unspecified internal derangement of left knee; M17.12 Unilateral primary osteoarthritis, left knee; M76.892 Other specified enthesopathies of left lower limb, excluding foot
CPT/HCPCS: 73721

== ENCOUNTER → 2025-04-23 14:44 | Outpatient (CLI) | payer MEDICARE, OTHER, SELFPAY ==
[2024-12-14 18:00] VITALS: BMI 30.2
[2025-04-23 15:13] LABS: Appearance Urine UA CLEAR; Bilirubin Urine UA NEGATIVE (NEGATIVE); Color Urine UA YELLOW; Glucose Urine UA NEGATIVE (Negative); Ketones Urine UA NEGATIVE (NEGATIVE); Leukocyte Esterase Urine UA 1+ (NEGATIVE); Nitrite Urine UA NEGATIVE (Negative); Occult Blood Urine UA 1+ (Negative); Protein Urine UA NEGATIVE (Negative); Specific Gravity Urine UA <=1.005 (1.000-1.035); Urobilinogen Urine UA 0.2 E.U./dL (0.2)
[2025-04-23 15:15] LABS: pH Urine UA 6.0 (4.5-8.0)
[2025-04-23 15:28] LABS: Culture Indicated Urine Specimen Cultured
[2025-04-23 15:33] LABS: Add Manual Diff / Slide Review NO; Hematocrit 35.3 % (36-46); Hemoglobin 11.5 g/dL (12.0-16.0); Lymphocytes Absolute Auto 900 /uL (1100-4500); Mean Corpuscular HGB Conc 32.7 % (30-36); Mean Corpuscular Hemoglobin 26.4 PG (26-34); Mean Corpuscular Volume 80.9 fL (80-100); Platelet Count 380 X10^3/uL (150-400)
[2025-04-23 15:47] LABS: HEMOLYSIS < 15 (0-50); Iron 30 ug/dL (37-170)
[2025-04-23 15:50] LABS: Alanine Aminotransferase 39 IU/L (<35); Albumin 4.1 g/dL (3.5-5.0); Albumin Globulin Ratio 1.4 (1.0-2.8); Alkaline Phosphatase 78 U/L (38-126); Blood Urea Nitrogen 24 mg/dL (7-17); Calcium 8.7 mg/dL (8.4-10.2); Carbon Dioxide 29 mmol/L (22-32); Chloride 98 mmol/L (98-107); Estimated Glomerular Filt Rate > 60 mL/min (>60); Globulin 3.0 g/dL (1.7-4.1); Glucose 110 mg/dL (70-99); HEMOLYSIS < 15 (0-50); Potassium 3.1 mmol/L (3.4-5.1); Sodium 136 mmol/L (137-145); Total Protein 7.1 g/dL (6.3-8.2)
[2025-04-23 15:57] LABS: Percent Iron Saturation 11 % (15-50); Total Iron Binding Capacity 283 ug/dL (265-497)
[2025-04-23 15:59] LABS: Transferrin 235 mg/dL (206-381)
[2025-04-23 16:22] LABS: Ferritin 19 ng/mL (11-264)
[2025-04-23 16:37] LABS: Vitamin B12 566 pg/mL (239-931)
[2025-04-23 17:25] LABS: Anisocytosis 2+; Schistocytes 1+
[2025-04-23 17:28] LABS: Microcytosis 1+
== END ==
PROVIDERS: PCP Family Medicine; Referring Provider Family Medicine; Visit Provider Family Medicine
DX: E53.8 Deficiency of other specified B group vitamins (principal); E03.9 Hypothyroidism, unspecified; I48.91 Unspecified atrial fibrillation; I10 Essential (primary) hypertension; D50.8 Other iron deficiency anemias; D50.9 Iron deficiency anemia, unspecified; R35.0 Frequency of micturition
CPT/HCPCS: 36415; 80053; 81001; 82607; 82728; 83540; 83550; 85025; 87077; 87086; 87186

== ENCOUNTER → 2025-07-18 11:36 | Outpatient (CLI) | payer MEDICARE, OTHER, SELFPAY ==
[2024-12-14 18:00] VITALS: BMI 30.2
--- NOTE | 2025-07-18 11:38 | DI.CT.S_ITS ---
PROCEDURE: CT CERVICAL SPINE WO CON INDICATIONS: pain TECHNIQUE: Noncontrast 3 mm thick sections acquired from the skull base to the T4 level. Sagittal and coronal reformats were then constructed. For radiation dose reduction, the following was used: automated exposure control, adjustment of mA and/or kV according to patient size. COMPARISON: [facility], CT, CT CERVICAL SPINE WO CON, 01/22/2025, 7:42. FINDINGS: Image quality: Excellent. Bones: The craniocervical junction is intact. Mild degenerative space loss and spurring at the atlantodental interval. No cervical vertebral body fractures or pathologic subluxation. Trace retrolisthesis C4-5 and anterolisthesis C7-T1. Moderate to severe C5-6 and C6-7 disc height loss. Mild circumferential disc osteophytes from C4 through C7 and C3-4 uncovertebral joint hypertrophy. Mild bilateral foraminal narrowing C4-5. Moderate left and mild right foraminal narrowing C5-6 and C6-7 accentuated by left lateral disc osteophytes. Mild central canal narrowing from C3-4 through C5-6 due to disc bulge. Soft tissues: Prevertebral soft tissues are normal in thickness. No paravertebral hematomas. No apical pneumothoraces. IMPRESSION: No acute fractures or new subluxation. Degenerative changes without significant progression since prior. Dictated by: Kristi Gentile M.D. on 07/18/2025 at 21:30 Approved by: Kristi Gentile M.D. on 07/18/2025 at 21:36
== END ==
PROVIDERS: PCP Family Medicine; Referring Provider Orthopaedic Surgery Orthopaedic Surgery of the Spine; Visit Provider Orthopaedic Surgery Orthopaedic Surgery of the Spine
DX: M47.12 Other spondylosis with myelopathy, cervical region (principal); M50.01 Cervical disc disorder with myelopathy, high cervical region; M48.02 Spinal stenosis, cervical region
CPT/HCPCS: 72125

== ENCOUNTER → 2025-09-23 16:56 | Outpatient (CLI) | payer MEDICARE, OTHER, SELFPAY ==
[2024-12-14 18:00] VITALS: BMI 30.2
[2025-09-23 18:06] LABS: Add Manual Diff / Slide Review NO; Hematocrit 36.8 % (36-46); Hemoglobin 12.4 g/dL (12.0-16.0); Lymphocytes Absolute Auto 900 /uL (1100-4500); Mean Corpuscular HGB Conc 33.7 % (30-36); Mean Corpuscular Hemoglobin 28.9 PG (26-34); Mean Corpuscular Volume 85.9 fL (80-100); Platelet Count 399 X10^3/uL (150-400)
[2025-09-23 18:48] LABS: Alanine Aminotransferase 19 IU/L (<35); Albumin 4.3 g/dL (3.5-5.0); Albumin Globulin Ratio 1.7 (1.0-2.8); Alkaline Phosphatase 79 U/L (38-126); Blood Urea Nitrogen 21 mg/dL (7-17); Calcium 8.6 mg/dL (8.4-10.2); Carbon Dioxide 28 mmol/L (22-32); Chloride 98 mmol/L (98-107); Estimated Glomerular Filt Rate > 60 mL/min (>60); Globulin 2.6 g/dL (1.7-4.1); Glucose 84 mg/dL (70-99); HEMOLYSIS < 15 (0-50); Potassium 3.6 mmol/L (3.4-5.1); Sodium 137 mmol/L (137-145); Total Protein 6.9 g/dL (6.3-8.2)
== END ==
PROVIDERS: PCP Family Medicine; Referring Provider Orthopaedic Surgery Orthopaedic Surgery of the Spine; Visit Provider Orthopaedic Surgery Orthopaedic Surgery of the Spine
DX: M47.12 Other spondylosis with myelopathy, cervical region (principal)
CPT/HCPCS: 36415; 80053; 85025

== ENCOUNTER 2025-09-29 23:55 | Emergency (ER) | payer MEDICARE, OTHER, SELFPAY ==
[2024-12-14 18:00] VITALS: BMI 30.2
[2025-09-30] VITALS (12 sets, daily range): BP systolic 101–150; BP diastolic 56–72; PULSE 70–88; RESP 18; TEMP 36.6; O2SAT 94–98; BMI 30.2
--- NOTE | 2025-09-30 00:16 | DI.RAD.S_ITS ---
PROCEDURE: XR CHEST 1V INDICATIONS: Chest Pain TECHNIQUE: One view of the chest was acquired. COMPARISON: [facility], CR, XR CHEST 1V, 12/14/2024, 13:37. [facility], CR, XR CHEST 2V, 09/23/2023, 8:20. FINDINGS AND IMPRESSION: Platelike atelectasis/scarring is seen projecting over the left lower lung. No dense airspace disease or pleural effusion otherwise on this single view study. Heart size is at the upper limit of normal. Tortuous aorta. Aortic calcifications. Degenerative osseous changes. Partially seen cervical fusion hardware. Dictated by: Gonsalo Hinton M.D. on 09/30/2025 at 0:55 Approved by: Gonsalo Hinton M.D. on 09/30/2025 at 0:56
--- NOTE | 2025-09-30 00:16 | EKG_ITS ---
[facility] [address] [place] [address] Test Date: 2025-09-30 Pat Name: Kajal Sumner Department: [facility] Room: Gender: Female Intermediate Accountant: MARY LOU : 1955 Requested By: Order Number: [id number] Reading MD: Horacio Narayan MD Measurements Intervals [place] Rate: 79 P: 29 LA: 148 QRS: 36 QRSD: 148 T: 16 QT: 408 QTc: 467 Interpretive Statements Normal sinus rhythm Left bundle branch block NO SIGNIFICANT CHANGE FROM PRIOR TRACING Electronically Signed On 09-30-2025 7:52:49 PST by oHracio Narayan MD
[2025-09-30 00:32] LABS: INR 1.0 (0.9-1.3); Prothrombin Time 11.4 SECONDS (9.4-12.5)
[2025-09-30 00:33] LABS: Add Manual Diff / Slide Review NO; Hematocrit 35.2 % (36-46); Hemoglobin 11.9 g/dL (12.0-16.0); Lymphocytes Absolute Auto 900 /uL (1100-4500); Mean Corpuscular HGB Conc 33.8 % (30-36); Mean Corpuscular Hemoglobin 28.7 PG (26-34); Mean Corpuscular Volume 84.9 fL (80-100); Platelet Count 348 X10^3/uL (150-400)
[2025-09-30 00:35] LABS: PTT Partial Thromboplastin Tim 26 SECONDS (25.1-36.5)
[2025-09-30 00:37] LABS: Alanine Aminotransferase 20 IU/L (<35); Albumin 3.9 g/dL (3.5-5.0); Albumin Globulin Ratio 1.4 (1.0-2.8); Alkaline Phosphatase 68 U/L (38-126); Blood Urea Nitrogen 20 mg/dL (7-17); Calcium 7.9 mg/dL (8.4-10.2); Carbon Dioxide 29 mmol/L (22-32); Chloride 93 mmol/L (98-107); Creatine Kinase 68 U/L (30-135); Estimated Glomerular Filt Rate > 60 mL/min (>60); Globulin 2.8 g/dL (1.7-4.1); Glucose 124 mg/dL (70-99); HEMOLYSIS < 15 (0-50); Lipase 70 U/L (23-300); Magnesium 2.0 mg/dL (1.6-2.3); Potassium 3.1 mmol/L (3.4-5.1); Sodium 129 mmol/L (137-145); Total Protein 6.7 g/dL (6.3-8.2)
[2025-09-30 00:49] LABS: NT-proBNP (BNP-Adult 18+) 131 pg/mL (<125); Troponin I < 0.012 ng/mL (0.01-0.034)
[2025-09-30 04:13] LABS: Troponin I < 0.012 ng/mL (0.01-0.034)
[2025-09-30] MEDS: SODIUM CHLORIDE 1,000 MG TABLET 1000 MG PO (04:41)
[2025-09-30] MEDS: POTASSIUM CHLORIDE 20 MEQ/15 ML UDC 40 MEQ PO (04:42)
--- NOTE | 2025-10-01 00:21 | ED.CHESTPAIN ---
HPI - Chest Pain General Chief Complaint: Chest Pain Stated Complaint: chest pain, recent spine surgery Time Seen by Provider: 09/30/25 00:27 Source: patient Mode of arrival: Ambulatory Limitations: no limitations History of Present Illness HPI narrative: The patient is a 70 year old female presenting with chest pain. Her history is notable for recent spinal surgery and use of oxycodone for pain management. Past medical history significant for chronic LBBB with normal cath in 2009, ECHO in 2018 normal, atrial tachycardia on diltiazem, atrial flutter s/p ablation in 2021, hypertension, hyperlipidemia. She reports that around 0 she took her pain medication on an empty stomach and subsequently developed sharp, non?radiating substernal chest pain that radiated to her neck. She took 324 mg of aspirin at home. She denies dyspnea, diaphoresis, nausea, or vomiting. At the time of evaluation, she is no longer experiencing chest pain. Related Data Home Medications ?Medication ?Instructions ?Recorded ?Confirmed omeprazole 20 mg capsule,delayed 20 mg PO BID 04/09/19 08/06/25 release famotidine 20 mg tablet 20 mg PO BEDTIME 10/23/22 08/06/25 hydralazine 25 mg tablet 25 mg PO TID 10/23/22 08/06/25 losartan 100 1 tab PO DAILY 10/23/22 08/06/25 mg-hydrochlorothiazide 25 mg tablet rosuvastatin 5 mg tablet (Crestor) 5 mg PO BEDTIME 10/23/22 08/06/25 ferrous sulfate 325 mg (65 mg 325 mg PO BID 03/12/25 07/20/25 iron) tablet ascorbic acid (vitamin C) 500 mg 500 mg PO DAILY 04/23/25 08/06/25 tablet cyanocobalamin (vitamin B-12) 1,000 mcg PO DAILY 04/23/25 08/06/25 1,000 mcg tablet (Vitamin B-12) Previous Rx's ?Medication ?Instructions ?Recorded fluticasone propionate 50 1 spray intranasal DAILY #16 grams 03/12/25 mcg/actuation nasal spray,suspension (Flonase Allergy Relief) levothyroxine 112 mcg tablet 112 mcg PO DAILY #90 tabs 04/23/25 (Synthroid) diltiazem HCl 180 mg 180 mg PO DAILY #30 caps 05/04/25 capsule,extended release 24 hr (Cardizem CD) Allergies Allergy/AdvReac Type Severity Reaction Status Date / Time felodipine Allergy Intermediate Feet Verified 08/06/25 07:41 swelling dexamethasone AdvReac Severe Rash Verified 09/30/25 00:09 Sulfa (Sulfonamide AdvReac Severe Irritable Verified 09/30/25 00:09 Antibiotics) lisinopril AdvReac Cough Verified 09/30/25 00:09 Review of Systems Review of Systems Narrative: See HPI. Patient History Medical History (Updated 09/30/25 @ 04:32 by Aliyah Robison MD) Sleep apnea (~2023) Measles Chicken pox Fibroids (~1993) Esophageal polyp Colon polyps (~2022) A-fib Thyroid cancer (~2006) Cervical radiculitis Allergic rhinitis CAD (coronary artery disease) GERD (gastroesophageal reflux disease) Atrial flutter (~2021) HLD (hyperlipidemia) Chronic bundle branch block SVT (supraventricular tachycardia) Hypertension Surgical History (Updated 04/23/25 @ 17:16 by Emily Wilson MD) Anesthesia History of back surgery (~2023) History of colonoscopy (~2022) History of cardiac radiofrequency ablation (~2021) History of radioactive iodine thyroid ablation (~2008) History of bladder suspension procedure (~2000) Hx of thyroidectomy (~2006) History of hysterectomy (~1993) History of cardiac cath Family History (Updated 04/13/25 @ 19:36 by Shasha Kim) Father History of heart disease Hyperlipidemia Mother Diabetes mellitus History of heart disease Hypertension Grandfather Stroke Social History household members: spouse Smoking Status: Never smoker alcohol intake: never Smoking Status: Never smoker alcohol intake frequency: holidays/special occasions only Exam Narrative Exam Narrative: Vitals: Afebrile, hypertensive, all other vitals within normal ranges. Gen: Well developed, well nourished, in no acute distress. Skin: No rashes on anterior chest wall Cards: Regular, no murmurs, rubs, or gallops. Pulm: Normal work of breathing. Clear to auscultation bilaterally. Abd: Nondistended, nontender to palpation. Ext: No peripheral edema in bilaterally lower extremity. Neuro: A&Ox4, cranial nerved grossly intact, moving all 4 extremities spontaneously. Psych: Appropriate. Initial Vital Signs Initial Vital Signs: Vital Signs Temperature 97.8 F 09/30/25 00:09 Pulse Rate 82 09/30/25 00:09 Respiratory Rate 18 09/30/25 00:09 Blood Pressure 148/70 H 09/30/25 00:09 Pulse Oximetry 98 09/30/25 00:09 Oxygen Delivery Method Room Air 09/30/25 00:09 Scores HEART Score Heart Score history: Slightly Suspicious Heart Score EKG: Normal Heart Score Age: > or = 65 years old Heart Score risk factors: > 3 risk factors or hx of atherosclerotic disease Heart Score troponin: < or = to normal limit Heart Score Total: 4 Course Orders Ordered: Discontinued Medications Potassium Chloride (Potassium Chloride 20 Meq/15 Ml Udc) 40 meq PO NOW ONE Stop: 09/30/25 04:29 Last Admin: 09/30/25 04:42 Dose: 40 meq Documented By: KEY Sodium Chloride (Sodium Chloride 1,000 Mg Tablet) 1,000 mg PO NOW ONE Stop: 09/30/25 04:31 Last Admin: 09/30/25 04:41 Dose: 1,000 mg Documented By: KEY MDM - Chest Pain Lab Data 09/30/25 00:10 09/30/25 00:10 Labs: Lab Results 09/30/25 09/30/25 Range/Units 00:10 03:40 WBC 12.8 H (4.5-11.0) X10^3/uL RBC 4.15 (4.0-5.2) X10^6/uL Hgb 11.9 L (12.0-16.0) g/dL Hct 35.2 L (36-46) % MCV 84.9 (80-100) fL MCH 28.7 (26-34) PG MCHC 33.8 (30-36) % RDW 14.1 (11.6-14.8) % Plt Count 348 (150-400) X10^3/uL Neut % (Auto) 82.4 H (50-75) % Lymph % (Auto) 7.4 L (25-40) % Floyd % (Auto) 7.9 (3-14) % Eos % (Auto) 1.9 L (2-4) % Baso % (Auto) 0.4 (0-2) % Neut # (Auto) 16130 H (6118-8451) /uL Lymph # (Auto) 900 L (4498-9268) /uL Floyd # (Auto) 1000 H (0-900) /uL Eos # (Auto) 200 (0-450) /uL Baso # (Auto) 0 (0-100) /uL PT 11.4 (9.4-12.5) SECONDS INR 1.0 (0.9-1.3) APTT 26 (25.1-36.5) SECONDS Sodium 129 L (137-145) mmol/L Potassium 3.1 L (3.4-5.1) mmol/L Chloride 93 L (98-107) mmol/L Carbon Dioxide 29 (22-32) mmol/L BUN 20 H (7-17) mg/dL Creatinine 0.91 (0.52-1.04) mg/dL Estimated GFR > 60 (>60) mL/min BUN/Creatinine Ratio 22.0 (6-22) Glucose 124 H (70-99) mg/dL Calcium 7.9 L (8.4-10.2) mg/dL Magnesium 2.0 (1.6-2.3) mg/dL Total Bilirubin 0.6 (0.2-1.3) mg/dL AST 25 (14-36) IU/L ALT 20 (<35) IU/L Alkaline Phosphatase 68 (38-126) U/L Total Creatine Kinase 68 (30-135) U/L Troponin I < 0.012 < 0.012 (0.01-0.034) ng/mL NT-Pro-B Natriuret Pep 131 H (<125) pg/mL Total Protein 6.7 (6.3-8.2) g/dL Albumin 3.9 (3.5-5.0) g/dL Globulin 2.8 (1.7-4.1) g/dL Albumin/Globulin Ratio 1.4 (1.0-2.8) Lipase 70 (23-300) U/L Imaging Data Chest x-ray: Radiologist's Impression: PROCEDURE: XR CHEST 1V INDICATIONS: Chest Pain TECHNIQUE: One view of the chest was acquired. COMPARISON: [facility], CR, XR CHEST 1V, 12/14/2024, 13:37. [facility], CR, XR CHEST 2V, 09/23/2023, 8:20. FINDINGS AND IMPRESSION: Platelike atelectasis/scarring is seen projecting over the left lower lung. No dense airspace disease or pleural effusion otherwise on this single view study. Heart size is at the upper limit of normal. Tortuous aorta. Aortic calcifications. Degenerative osseous changes. Partially seen cervical fusion hardware. MDM Narrative Medical decision making narrative: Patient is a 70 year old female who recently underwent spinal surgery who presents with substernal chest pain. Differential diagnosis: ACS, aortic dissection, cardiac tamponade, PE, GERD, pneurmonia, other. EMR review: Reviewed notes pertaining to cardiac history in EMR. Labs: CBC with mild leukocytosis (WBC 12.8) with left shift (neut% 82.4), no anemia, normal platelets. Coags normal. Hyponatremia (Na 129), hypokalemia (K 3.1), low calcium (Ca 7.9), normal renal function. Serial troponins neg. BNP 131. Imaging: No acute cardiopulmonary process on CXR. EKG: NSR< HR 79, KY 148, QT 408, QTc 467, no left shift, no ectopy, LBBB that do not meet modified [place] criteria for ischemia. Unchnaged from EKG obtained in 12/2024. Consults: None ED course: The patient is a 70-year-old female with multiple cardiac risk factors who presented with a single episode of chest pain. She was hyponatremic and hypokalemic, both of which were repleted in the ER. Her ED cardiac workup was negative for acute ischemia, and her HEART score is 4, corresponding to a 12?16.6% risk of a major adverse cardiac event. I discussed these findings with the patient and recommended inpatient observation for further monitoring. Despite this recommendation, the patient elected outpatient management with strict return precautions. She agreed to return immediately if her chest pain recurs. At the time of discharge, she was asymptomatic and stable. Discharge Plan Departure Patient Disposition: Home Clinical Impression: Chest pain, Hyponatremia, Hypokalemia Instructions: DI for Atypical Chest Pain, High-Potassium Diet, Hyponatremia-Adult Activity Restrictions/Additional Instructions: You were seen in the emergency department for chest pain. In the ER: -- Cardiac workup is not significant for a heart attack. -- Your sodium and potassium was mildly low. You were given a salt and potassium tablet for this. Plan: -- Follow up with the primary care physician to repeat your sodium potassium levels. -- Return to the ER if you develop any new or worsening symptoms. Prescriptions: No Action cyanocobalamin (vitamin B-12) [Vitamin B-12] 1,000 mcg tablet 1,000 mcg PO DAILY ascorbic acid (vitamin C) 500 mg tablet 500 mg PO DAILY levothyroxine [Synthroid] 112 mcg tablet 112 mcg PO DAILY Qty: 90 3RF Rx Instructions: can't substitute with generic ferrous sulfate 325 mg (65 mg iron) tablet 325 mg PO BID fluticasone propionate [Flonase Allergy Relief] 50 mcg/actuation spray,suspension 1 spray intranasal DAILY Qty: 16 3RF Rx Instructions: administer into each nostril diltiazem HCl [Cardizem CD] 180 mg capsule,extended release 24hr 180 mg PO DAILY Qty: 30 3RF hydralazine 25 mg tablet 25 mg PO TID Patient Comments: Take 1 tablet by mouth twice a day losartan-hydrochlorothiazide 100-25 mg tablet 1 tab PO DAILY famotidine 20 mg tablet 20 mg PO BEDTIME Patient Comments: Take 1 tablet every night rosuvastatin [Crestor] 5 mg tablet 5 mg PO BEDTIME Patient Comments: every evening omeprazole 20 mg Capsule,Delayed Release(Dr/Ec) 20 mg PO BID Referrals: Emily Wilson MD [Primary Care Provider, Family Practice] Stand Alone Forms: Patient Portal/API
== END 2025-09-30 05:18 | disposition home or self-care (01) ==
PROVIDERS: Emergency Provider Student in an Organized Health Care Education/Training Program; PCP Family Medicine
DX: R07.89 Other chest pain (principal); E87.1 Hypo-osmolality and hyponatremia; E87.6 Hypokalemia; I10 Essential (primary) hypertension
CPT/HCPCS: 36415; 71045; 80053; 82550; 83690; 83735; 83880; 84484; 85025; 85610; 85730; 93005; 99284